=== PATIENT | female | born 1945 | race Caucasian/White ===

== ENCOUNTER → 2017-03-29 | Outpatient (CLI) | payer OTHER ==
[~2017-03-29] MED LIST: ALPRAZOLAM0.5 M1 PO; ATORVASTATIN CA40 MG PO; AZO CRANBERRY1 EAC1 PO; CITALOPRAM HBR10 MG PO; CLOTRIMAZOLE-BE30 ML; COLACE100 MG PO; DIGOXIN125 MCG PO; FLUDROCORTISON0.1 MG PO; GABAPENTIN300 MG PO; HYDROXYZINE HCL25 MG PO; MIDODRINE HCL2.5 MG PO; MUPIROCIN22 GM TOP; NYSTOP60 GM TOP; PLAVIX75 MG PO; PROBIOTIC COMP1 EACH; SIMVASTATIN40 MG PO; TRAZODONE HCL50 MG PO; TYLENOL EXTRA500 MG PO; ULTRAM50 MG PO; VELCADE3.5 MG; VESICARE5 MG PO; VITAMIN B-12500 MCG PO; VITAMIN B-6100 MG PO; XARELTO20 MG PO; ZYRTEC10 M1 PO
[2017-03-30 08:39] LABS: CLARITY,URINE CLOUDY (CLEAR); COLOR,URINE YELLOW (YELLOW)
[2017-03-30 08:40] LABS: BACTERIA,URINE RARE /HPF; BILIRUBIN,URINE NEGATIVE (NEGATIVE); EPITHELIAL CELLS,URINE FEW /LPF; KETONES,URINE NEGATIVE (NEGATIVE); LEUKOCYTE ESTERASE ,URINE 2+ (NEGATIVE); NITRITE,URINE NEGATIVE (NEGATIVE); PROTEIN,URINE DIPSTICK 1+ (NEGATIVE); URINE UROBILINOGEN 0.2 mg/dL (0.2 - 1); WBC,URINE (MAN) >50 /HPF (0-5)
== END ==
LOC: NPA 13:00
DX: R69 Illness, unspecified (principal)
CPT/HCPCS: 81001; 87086; 87186

== ENCOUNTER → 2017-06-19 | Emergency (ER) | payer MEDICARE ==
[~2017-06-19] VITALS: Ht 160 cm; Wt 69.9 kg
[~2017-06-19] MED LIST changes: +MEROPENEM 1 GM VIAL ONE; +MEROPENEM 1GRAM 1 GM in SODIUM CHLORIDE 0.9% 100 ML 100 ML IV STA; +SODIUM CHLORIDE 0.9% 1000ML 1,000 ML IV STA; +SODIUM CHLORIDE 0.9% 50ML 50 ML ONE
[2017-06-19 12:39] LABS: BILIRUBIN,URINE NEGATIVE (NEGATIVE); CLARITY,URINE CLOUDY (CLEAR); COLOR,URINE AMBER (YELLOW); KETONES,URINE NEGATIVE (NEGATIVE); LEUKOCYTE ESTERASE ,URINE 2+ (NEGATIVE); NITRITE,URINE NEGATIVE (NEGATIVE); PROTEIN,URINE DIPSTICK 2+ (NEGATIVE); URINE UROBILINOGEN 0.2 mg/dL (0.2 - 1)
[2017-06-19 12:54] LABS: AMORPHOUS SEDIMENT,URINE RARE (FEW); BACTERIA,URINE RARE /HPF; EPITHELIAL CELLS,URINE RARE /LPF; YEAST,URINE RARE
[2017-06-19 13:27] LABS: BASOPHILS # (AUTO) 0.1 (0.0-0.1); BASOPHILS % 1.1 % (0.0-1.0); EOSINOPHILS # (AUTO) 0.6 (0.0-0.4); EOSINOPHILS % 6.7 % (0.0-6.0); HEMATOCRIT 44.1 % (34.2-44.1); HEMOGLOBIN 14.1 g/dL (12.0-16.0); LYMPHOCYTES # (AUTO) 2.3 (1.0-3.2); MEAN CORPUSCULAR HEMOGLOBIN 27.9 pg (28-32); MEAN CORPUSCULAR VOLUME 87.3 fL (81-99); MONOCYTES # (AUTO) 0.6 (0.2-0.8); MONOCYTES % 6.9 % (4.4-11.3); NEUTROPHILS # (AUTO) 4.9 (2.1-6.9); NEUTROPHILS % 57.8 % (38.7-80.0); PLATELET COUNT 246 x10e3/uL (140-360); RED BLOOD COUNT 5.05 x10e6/uL (3.6-5.1); RED CELL DISTRIBUTION WIDTH 13.7 % (11.7-14.4)
[2017-06-19 14:21] LABS: ANION GAP 16.7 mmol/L (8-16); CALCIUM 9.3 mg/dL (8.4-10.2); CREATININE, SERUM 0.98 mg/dL (0.57-1.11); POTASSIUM 3.7 mmol/L (3.5-5.1)
--- OUTSIDE RECORDS SUMMARY | 2017-06-23 12:48 | XMS REPORT | Continuity of Care Document ---
Author Author [facility] Organization [facility] Address [address] [place] [address] Phone Unavailable Care Team Providers Care Django Developer Name Role Phone ANGELA BONILLA PCP Insurance Providers Guarantor Howard Salgado Address [address] [place] [address] Email PTDECLINED Payer AARP Policy Number [id number] Subscriber's Name Salgado,Howard Braswell Relationship 18 Self / Same As Patient Group Number PLANF Group Name RETIRED Effective Date 17 Payer Medicare A & B Policy Number [id number] Subscriber's Name SalgadoHoward Braswell Relationship 18 Self / Same As Patient Group Name RETIRED Effective Date 10 Advance Directives Directive Response Recorded Date/Time Does the patient have an advance directive? Yes 01/06/15 9:46pm If yes, is advance directive on file with [facility]? No 01/06/15 9:46pm If not on file with [facility] will patient provide a copy? Yes 01/06/15 9:46pm Do you have a Directive to Physician? No 06/19/17 12:06pm Do you have a Medical Power of Head Of Cytogenetics? No 06/19/17 12:06pm Do you have an out of hospital Do Not Resuscitate Order? No 03/12/18 12:06pm Do you have any special needs we should be aware of? No 06/19/17 12:06pm Do you have a support person here with you today? Yes 06/19/17 12:06pm Did patient receive Notice of Privacy Practices? Yes 06/19/17 12:06pm Did patient receive patient rights and responsibilities? Yes 06/19/17 12:06pm Problems Medical Problem Onset Date Status CHF (congestive heart failure) 01/06/2015 Acute CHF (congestive heart failure) 01/09/2015 Acute Suprapubic catheter Unknown Acute Medications Current Home Medications Medication Dose Units Route Directions Days Qty Instructions Start Date Acetaminophen (Tylenol Extra Strength) 500 Mg Tablet 500 Mg Oral As Needed Alprazolam 0.5 Mg Tab.rapdis 0.5 Mg Oral Daily Cranberry Extract/Vit C (Azo Cranberry Softgel) 1 Each Capsule 2 Tab Oral Daily Digoxin 125 Mcg Tablet 0.125 Mg Oral Daily Docusate Sodium (Colace) 100 Mg Cap 100 Mg Oral Daily 30 Cap Hydroxyzine Hcl 25 Mg Tablet 50 Mg Oral Daily 30 Tab Midodrine Hcl 2.5 Mg Tablet 5 Mg Oral Three Times A Day Mupirocin 22 Gm Oint...g. 22 Gm Topically Daily Nystatin (Nystop) 60 Gm Powder 100,000 Topically Simvastatin 40 Mg Tablet 40 Mg Oral Daily Solifenacin Succinate (Vesicare) 5 Mg Tablet 10 Mg Oral Daily 30 Tab Tramadol Hcl (Ultram) 50 Mg Tablet 50 Mg Oral Three Times A Day as needed for Pain Past Home Medications Medication Directions Ordered Status Atorvastatin Calcium 40 Mg Tablet, 40 Mg Oral Daily Discontinued Bortezomib (Velcade) 3.5 Mg Vial, 10 Discontinued Cetirizine Hcl (Zyrtec) 10 Mg Tab.chew, 10 Mg Oral Daily Discontinued Citalopram Hydrobromide (Citalopram Hbr) 10 Mg Tablet, 10 Mg Oral Daily Discontinued Clopidogrel Bisulfate (Plavix) 75 Mg Tablet, 75 Mg Oral Daily Discontinued Clotrimazole/Betamethasone Dip (Clotrimazole-Betamethasone Lot) 30 Ml Lotion, Daily Discontinued Cyanocobalamin (Vitamin B-12) (Vitamin B-12) 500 Mcg Tablet, Oral Daily Discontinued Fludrocortisone Acetate 0.1 Mg Tab, Oral Twice A Day Discontinued Gabapentin 300 Mg Capsule, 300 Mg Oral Four Times Daily Discontinued Lactobacillus Combo No.6 (Probiotic Complex) 1 Each Tablet, Discontinued Pyridoxine Hcl (Vitamin B-6) 100 Mg Tablet, 100 Mg Oral Daily Discontinued Rivaroxaban (Xarelto) 20 Mg Tablet, 20 Mg Oral Daily Discontinued Trazodone Hcl 50 Mg Tablet, 100 Mg Oral Bedtime Discontinued Social History Social History Problem Response Recorded Date/Time Onset Date Status Hx Psychiatric Problems No 01/06/2015 9:46pm Not Applicable Not Applicable Hx Eating Disorder No 01/06/2015 9:46pm Not Applicable Not Applicable Hx Substance Use Disorder No 01/06/2015 9:46pm Not Applicable Not Applicable Hx Depression No 01/06/2015 9:46pm Not Applicable Not Applicable Hx Alcohol Use No 01/06/2015 9:46pm Not Applicable Not Applicable Hx Substance Use Treatment No 01/06/2015 9:46pm Not Applicable Not Applicable Hx Physical Abuse No 01/06/2015 9:46pm Not Applicable Not Applicable Hospital Discharge Instructions No hospital discharge instruction information available. Plan of Care Discharge Date 06/19/17 4:25pm Disposition HOME, SELF-CARE Condition at Discharge Stable Instructions/Education Provided Urinary Tract Infection - Women Forms Provided Work/School Excuse Prescriptions See Medication Section Referrals RAUDEL YOUNG MD Address: [address] [place] [id number] Functional Status No functional status information available. Allergies, Adverse Reactions, Alerts Allergen Type Severity Reaction Status Last Updated Penicillin Allergy Mild HIVES Active 06/19/17 Nitrofurantoin Allergy Severe Couldn't breath and HTN Active 06/19/17 Immunizations No immunization information available. Vital Signs Acute Vital Signs Vital Response Date/Time Height 5 ft 3 in 06/19/2017 11:51am Weight 154 lb 06/19/2017 11:51am Body Mass Index 27.3 kg/m^2 06/19/2017 11:51am Results Laboratory Results Test Name Result Units Flags Reference Collection Date/Time Result Date/ Time Comments White Blood Count 8.53 x10e3/uL 4.8-10.8 06/19/2017 1:12pm 06/19/2017 1 :28pm Red Blood Count 5.05 x10e6/uL 3.6-5.1 06/19/2017 1:12pm 06/19/2017 1: 28pm Hemoglobin 14.1 g/dL 12.0-16.0 06/19/2017 1:06/19/2017 1:28pm Hematocrit 44.1 % 34.2-44.1 06/19/2017 1:06/19/2017 1:28pm Mean Corpuscular Volume 87.3 fL 81-99 06/19/2017 1:06/19/2017 1: 28pm Mean Corpuscular Hemoglobin 27.9 pg L 28-32 06/19/2017 1:2017 1:28pm Mean Corpuscular Hemoglobin Concent 32.0 g/dL 31-35 06/19/2017 1:06/19/2017 1:28pm Red Cell Distribution Width 13.7 % 11.7-14.4 06/19/2017 1:2017 1:28pm Platelet Count 246 x10e3/uL 140-360 06/19/2017 1:06/19/2017 1: 28pm Neutrophils (%) (Auto) 57.8 % 38.7-80.0 06/19/2017 1:06/19/2017 1: 28pm Lymphocytes (%) (Auto) 27.0 % 18.0-39.1 06/19/2017 1:06/19/2017 1: 28pm Monocytes (%) (Auto) 6.9 % 4.4-11.3 06/19/2017 1:06/19/2017 1: 28pm Eosinophils (%) (Auto) 6.7 % H 0.0-6.0 06/19/2017 1:06/19/2017 1: 28pm Basophils (%) (Auto) 1.1 % H 0.0-1.0 06/19/2017 1:06/19/2017 1: 28pm IM GRANULOCYTES % 0.5 % 0.0-1.0 06/19/2017 1:06/19/2017 1:28pm Neutrophils # (Auto) 4.9 2.1-6.9 06/19/2017 1:06/19/2017 1:28pm Lymphocytes # (Auto) 2.3 1.0-3.2 06/19/2017 1:06/19/2017 1:28pm Monocytes # (Auto) 0.6 0.2-0.8 06/19/2017 1:12pm 06/19/2017 1:28pm Eosinophils # (Auto) 0.6 H 0.0-0.4 06/19/2017 1:12pm 06/19/2017 1: 28pm Basophils # (Auto) 0.1 0.0-0.1 06/19/2017 1:12pm 06/19/2017 1:28pm Absolute Immature Granulocyte (auto 0.04 x10e3/uL 0-0.1 06/19/2017 1: 12pm 06/19/2017 1:28pm Urine Color PAWAN H YELLOW 06/19/2017 12:29pm 06/19/2017 12:39pm Urine Clarity CLOUDY H CLEAR 06/19/2017 12:29pm 06/19/2017 12:39pm Urine Specific Irving 1.020 1.010-1.025 06/19/2017 12:29pm 2017 12:39pm Urine pH 5 5 - 7 06/19/2017 12:29pm 06/19/2017 12:39pm Urine Leukocyte Esterase 2+ H NEGATIVE 06/19/2017 12:29pm 06/19/2017 12:39pm Urine Nitrite NEGATIVE NEGATIVE 06/19/2017 12:29pm 06/19/2017 12: 39pm Urine Protein 2+ H NEGATIVE 06/19/2017 12:29pm 06/19/2017 12:39pm Urine Glucose (UA) NEGATIVE NEGATIVE 06/19/2017 12:29pm 06/19/2017 12 :39pm Urine Ketones NEGATIVE NEGATIVE 06/19/2017 12:29pm 06/19/2017 12: 39pm Urine Urobilinogen 0.2 mg/dL 0.2 - 1 06/19/2017 12:29pm 06/19/2017 12: 39pm Urine Bilirubin NEGATIVE NEGATIVE 06/19/2017 12:29pm 06/19/2017 12: 39pm Urine Blood 4+ H NEGATIVE 06/19/2017 12:29pm 06/19/2017 12:39pm Urine WBC 6-10 /HPF H 0-5 06/19/2017 12:29pm 06/19/2017 12:56pm Urine RBC 11-20 /HPF H 0-5 06/19/2017 12:29pm 06/19/2017 12:56pm Urine Bacteria RARE /HPF NONE 06/19/2017 12:29pm 06/19/2017 12:56pm Urine Epithelial Cells RARE /LPF NONE 06/19/2017 12:29pm 06/19/2017 12: 56pm Urine Amorphous Sediment RARE FEW 06/19/2017 12:29pm 06/19/2017 12: 56pm Urine Yeast RARE H NONE 06/19/2017 12:29pm 06/19/2017 12:56pm Sodium Level 139 mmol/L 136-145 06/19/2017 1:43pm 06/19/2017 2:21pm Potassium Level 3.7 mmol/L 3.5-5.1 06/19/2017 1:43pm 06/19/2017 2:21pm Chloride Level 103 mmol/L 98-107 06/19/2017 1:43pm 06/19/2017 2:21pm Carbon Dioxide Level 23 mmol/L 22-29 06/19/2017 1:43pm 06/19/2017 2: 21pm Anion Gap 16.7 mmol/L H 8-16 06/19/2017 1:43pm 06/19/2017 2:21pm Blood Urea Nitrogen 18 mg/dL 7-26 06/19/2017 1:43pm 06/19/2017 2:21pm Creatinine 0.98 mg/dL 0.57-1.11 06/19/2017 1:43pm 06/19/2017 2:21pm BUN/Creatinine Ratio 18 6-25 06/19/2017 1:43pm 06/19/2017 2:21pm Estimat Glomerular Filtration Rate 56 ML/MIN L 60- 06/19/2017 1:43pm 03/2018 2:21pm Ranges were taken from the National Kidney Disease Education Program and the National Kidney Foundation literature. Reference ranges: 60 or greater: Normal 16-59 (for 3 consecutive months): Chronic kidney disease 15 or less: Kidney failure Glucose Level 242 mg/dL H 74-118 06/19/2017 1:43pm 06/19/2017 2:21pm Calcium Level 9.3 mg/dL 8.4-10.2 06/19/2017 1:43pm 06/19/2017 2:21pm Microbiology Results Procedure Source Organism/Result Collection Date/Time Result Date/Time Result Status Urine Culture Urine,Suprapubic ENTEROCOCCUS FAECALIS 11/25/2016 6:45pm 7:26am Final PSEUDOMONAS AERUGINOSA 11/25/2016 6:45pm 11/29/2016 7:26am Final Urine Culture Urine,Clean Catch ENTEROCOCCUS FAECALIS 03/29/2017 12:00pm 03/31/2017 2:59pm Final Procedures Procedure Status Date Provider(s) CHANGE OF BLADDER TUBE Completed 09/16/16 RAUDEL YOUNG MD CYSTOSCOPY & URETER CATHETER Completed 09/16/16 RAUDEL YOUNG MD CHANGE OF BLADDER TUBE Completed 11/25/16 TRAVIS GELLER MD X-ray of chest, two views Active 09/14/16 RAUDEL YOUNG MD Encounters Encounter Location Arrival/Admit Date Discharge/Depart Date Attending Provider Departed Emergency Room [facility] 06/19/17 11:37am 06/19 4:25pm TRAVIS KHAN MD Registered Clinic [facility] 03/29/17 1:00pm NONSTAFF Registered Clinic [facility] 03/27/17 1:30pm NAYANA MURRAY MD Departed Emergency Room [facility] 11/25/16 3:10pm 8:17pm TRAVIS GELLER MD Registered Surgical Day Care [facility] 09/16/16 6:30am RAUDEL YOUNG MD
== END ==
LOC: ER 11:37 → EDSTATUS 12:38 → FSED 15:52 → NPA 15:52 → ER 16:25
DX: R53.1 Weakness (principal); R10.30 Lower abdominal pain, unspecified; I48.91 Unspecified atrial fibrillation; Z86.73 Personal history of transient ischemic attack (TIA), and cerebral infarction without residual deficits
CPT/HCPCS: 36415; 80048; 81001; 85025; 87086; 87186; 99283; J2185

== ENCOUNTER 2018-02-05 18:10 | Inpatient (IN) | payer MEDICARE ==
[~2018-02-05] VITALS: Ht 162.6 cm; Wt 73.3 kg
[~2018-02-05 18:10] MED LIST changes: -MEROPENEM 1 GM VIAL ONE; -MEROPENEM 1GRAM 1 GM in SODIUM CHLORIDE 0.9% 100 ML 100 ML IV STA; -SODIUM CHLORIDE 0.9% 1000ML 1,000 ML IV STA; -SODIUM CHLORIDE 0.9% 50ML 50 ML ONE
--- OUTSIDE RECORDS SUMMARY | 2018-02-05 18:14 | XMS REPORT | Clinical Summary ---
Author Author ALEX [facility] Address Unknown Phone Unavailable Care Team Providers Care Cigarette Catcher Name Role Phone Andres New PCP Allergies Comments Active Allergy Reactions Severity Noted Date Nitrofurantoin Shortness Of High 01/14/2015 Breath Penicillins Rash Low 01/14/2015 Medications End Date Status Medication Sig Dispensed Refills Start Date Active digoxin (LANOXIN) 0.125 Take 125 mcg 0 MG tablet by mouth daily. Active solifenacin (VESICARE) 5 Take 10 mg by 0 MG tablet mouth daily. Active pantoprazole (PROTONIX) Take 1 tablet 0 40 MG tablet (40 mg total) 5 by mouth daily. Active vancomycin 125 mg/2.5 mL Take 2.5 mLs 0 Syrg (125 mg 5 total) by mouth every 6 (six) hours. 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 Last Filed Vital Signs Not on file Plan of Treatment Not on file Implants Device Identifier Shelf Expiration Date Model / Serial / Lot Implanted Type Area Manufactur er 06/02/2018 [id number] / [id number] / Valve,Mitral Epic Stented Porcine Valves N/A: Heart [employer] DEL[employer] 27mm - [id number] MEDICAL Implanted: Qty: 1 on 01/15/2015 by Eitan Burris MD Explanted: Results Not on fileafter 02/04/2017 Insurance Payer Benefit Subscriber ID Type Phone Address Plan / Group MEDICARE MEDICARE A xxxxxxxxxx Medicare B MCR SUPPLEMENT/INDIVIDUAL AARP/UNITE xxxxxxxxxxx Medigap D HEALTHCARE Advance Directives For more information, please contact: [address] [address] Date Inactivated Comments Code Status Date Activated 01/28/2015 5:44 PM Full Code 01/16/2015 8:25 AM This code status was determined by: Patient 01/15/2015 2:04 PM Full Code 01/14/2015 11:01 PM This code status was determined by: Patient 01/14/2015 11:01 PM Full Code 01/14/2015 2:59 PM This code status was determined by: Patient 01/14/2015 2:59 PM Full Code 01/14/2015 4:39 AM This code status was determined by: Patient 01/14/2015 4:39 AM Full Code 01/14/2015 2:53 AM This code status was determined by: Patient
[2018-02-05] MEDS ORDERED: SODIUM CHLORIDE 0.9% 1000ML 1,000 ML IV ONE ×3 (19:45→23:15)
[2018-02-05 20:14] LABS: BASOPHILS # (AUTO) 0.1 (0.0-0.1); BASOPHILS % 0.5 % (0.0-1.0); HEMATOCRIT 40.4 % (34.2-44.1); HEMOGLOBIN 13.4 g/dL (12.0-16.0); LYMPHOCYTES # (AUTO) 1.9 (1.0-3.2); LYMPHOCYTES % 10.1 % (18.0-39.1); MEAN CORPUSCULAR HEMOGLOBIN 29.4 pg (28-32); MEAN CORPUSCULAR HGB CONC 33.2 g/dL (31-35); MEAN CORPUSCULAR VOLUME 88.6 fL (81-99); MONOCYTES # (AUTO) 1.1 (0.2-0.8); MONOCYTES % 5.7 % (4.4-11.3); NEUTROPHILS # (AUTO) 15.5 (2.1-6.9); NEUTROPHILS % 83.1 % (38.7-80.0); PLATELET COUNT 244 x10e3/uL (140-360); RED BLOOD COUNT 4.56 x10e6/uL (3.6-5.1); RED CELL DISTRIBUTION WIDTH 12.9 % (11.7-14.4)
[2018-02-05 20:33] LABS: ALBUMIN 3.4 g/dL (3.5-5.0); ALBUMIN/GLOBULIN RATIO 0.7 (0.8-2.0); ANION GAP 15.1 mmol/L (8-16); CREATININE, SERUM 1.05 mg/dL (0.57-1.11); POTASSIUM 4.1 mmol/L (3.5-5.1)
[2018-02-05 20:39] LABS: CREATINE KINASE MB 2.4 ng/mL (0-5.0)
[2018-02-05] MEDS ORDERED: MEROPENEM 1GM 100 ML IV SCH (21:45)
--- NOTE | 2018-02-05 21:47 | Diagnostic Imaging Report ---
EXAM: CHEST SINGLE (PORTABLE), AP 1 view INDICATION: Intermittent fever, cloudy dark urine, A. fib COMPARISON: AP and lateral view of the chest September 14, 2016 FINDINGS: LINES/TUBES: None LUNGS: No consolidations or edema. PLEURA: No effusions or pneumothorax. HEART AND MEDIASTINUM: Normal size and contour. Stable median sternotomy wires. BONES AND SOFT TISSUES: Partially visualized lap band in appropriate orientation. Partially visualized lumbar spine surgical hardware. Chronic appearing deformity of the proximal right humerus. IMPRESSION: No consolidative pneumonia. Signed by: Dr. Kelly Gr M.D. on 02/05/2018 9:44 PM
[2018-02-05] MEDS: MEROPENEM 1 GM VIAL IV SCH (21:57)
[2018-02-05 22:44] LABS: CLARITY,URINE CLOUDY (CLEAR); COLOR,URINE YELLOW (YELLOW)
[2018-02-05 22:45] LABS: BILIRUBIN,URINE NEGATIVE (NEGATIVE); KETONES,URINE NEGATIVE (NEGATIVE); LEUKOCYTE ESTERASE ,URINE 2+ (NEGATIVE); NITRITE,URINE POSITIVE (NEGATIVE); PROTEIN,URINE DIPSTICK 2+ (NEGATIVE); URINE UROBILINOGEN 0.2 mg/dL (0.2 - 1)
[2018-02-05 23:07] LABS: BACTERIA,URINE MANY /HPF; EPITHELIAL CELLS,URINE FEW /LPF; WBC,URINE (MAN) >50 /HPF (0-5)
[2018-02-05] MEDS ORDERED: VANCOMYCIN 1GM/NS 250 ML 250 ML IV SCH (23:15)
[2018-02-05] MEDS ORDERED: ONDANSETRON HCL INJ 2 MG/ML VIAL IV PRN (23:15)
[2018-02-05] MEDS ORDERED: ACETAMINOPHEN 1000 MG/100 ML IV PRN (23:15)
--- OUTSIDE RECORDS SUMMARY | 2018-02-05 23:24 | XMS REPORT ---
Author Author [facility] Address Unknown Phone Unavailable Care Team Providers Care Crystal Finisher Name Role Phone Elias ARMSTRONG Unavailable Unavailable Problems This patient has no known problems. Allergies, Adverse Reactions, Alerts This patient has no known allergies or adverse reactions. Medications This patient has no known medications. Results Test Description Test Time Test Comments Text Results Atomic Results Result Comments CHEST SINGLE (PORTABLE) 2018-02-05 21:42:00 [place] [address] Patient Name: HOWARD SALGADO MR #: [id number] : 1945 Age/Sex: 72/F Req #: [id number] Adm Physician: Ordered by: MIGUEL MCKEON MD Report #: [id number] Location: ER Room/Bed: Procedure: [id number] DX/CHEST SINGLE (PORTABLE) Exam Date: 02/05/18 Exam Time: 2029 REPORT STATUS: Signed EXAM: CHEST SINGLE (PORTABLE), AP 1 view INDICATION: Intermittent fever, cloudy dark urine, A. fib COMPARISON: AP and lateral view of the chest September 14, 2016 FINDINGS: LINES/TUBES: None LUNGS: No consolidations or edema. PLEURA: No effusions or pneumothorax. HEART AND MEDIASTINUM: Normal size and contour. Stable median sternotomy wires. BONES AND SOFT TISSUES: Partially visualized lap band in appropriate orient ation. Partially visualized lumbar spine surgical hardware. Chronic appearing deformity of the proximal right humerus. IMPRESSION: No consolidative pneumonia. Signed by: Dr. Jacquelyn Gr M.D. on 02/05/2018 9:44 PM Dictated By: JACQUELYN GR MD 43 Transcribed By: LUIS on 02/05/182143 COPY TO: MIGUEL MCKEON MD
--- OUTSIDE RECORDS SUMMARY | 2018-02-05 23:24 | XMS REPORT | Clinical Summary ---
Author Author ALEX [facility] Address Unknown Phone Unavailable Care Team Providers Care Examiner Rating Clerk Name Role Phone Andres New PCP Allergies [...] Lot Implanted Type Area Manufactur er 06/02/2018 [id number] / [id number] / Valve,Mitral Epic Stented Porcine Valves N/A: Heart [employer] DELIA 27mm - [id number] MEDICAL Implanted: Qty: 1 on 01/15/2015 by Eitan Burris MD Explanted: Results Not on fileafter 02/04/2017 Insurance Payer Benefit Subscriber ID Type Phone Address Plan / Group MEDICARE MEDICARE A xxxxxxxxxx Medicare B MCR SUPPLEMENT/INDIVIDUAL AARP/UNITE xxxxxxxxxxx Medigap D HEALTHCARE Advance Directives For more information, please contact: [address] [address] Date Inactivated Comments Code Status [...]
[2018-02-05] MEDS ORDERED: ASPIR 8181 MG PO (23:25)
[2018-02-05] MEDS ORDERED: VANCOMYCIN 1GM/NS 250 ML 250 ML IV ONE (23:30)
[2018-02-06] VITALS (7 sets, daily range): BP systolic 97–148; BP diastolic 53–67
[2018-02-06] MEDS ORDERED: TRAMADOL HCL 50 MG TAB PO PRN (00:15)
[2018-02-06] MEDS: MEROPENEM 1 GM VIAL IV SCH (05:06)
[2018-02-06 07:50] LABS: BASOPHILS # (AUTO) 0.1 (0.0-0.1); BASOPHILS % 0.5 % (0.0-1.0); EOSINOPHILS % 0.1 % (0.0-6.0); HEMATOCRIT 33.9 % (34.2-44.1); HEMOGLOBIN 11.1 g/dL (12.0-16.0); LYMPHOCYTES # (AUTO) 1.9 (1.0-3.2); LYMPHOCYTES % 15.5 % (18.0-39.1); MEAN CORPUSCULAR HEMOGLOBIN 29.1 pg (28-32); MEAN CORPUSCULAR HGB CONC 32.7 g/dL (31-35); MEAN CORPUSCULAR VOLUME 88.7 fL (81-99); MONOCYTES % 8.1 % (4.4-11.3); NEUTROPHILS % 75.4 % (38.7-80.0); PLATELET COUNT 186 x10e3/uL (140-360); RED BLOOD COUNT 3.82 x10e6/uL (3.6-5.1)
[2018-02-06 08:07] LABS: ALANINE AMINOTRANSFERASE 10 IU/L (0-55); ALBUMIN 2.5 g/dL (3.5-5.0); ALBUMIN/GLOBULIN RATIO 0.6 (0.8-2.0); ALKALINE PHOSPHATASE 54 IU/L (40-150); ANION GAP 11.9 mmol/L (8-16); BLOOD UREA NITROGEN 12 mg/dL (7-26); BUN/CREATININE RATIO 15 (6-25); CALCIUM 8.4 mg/dL (8.4-10.2); CARBON DIOXIDE 23 mmol/L (22-29); CHLORIDE 105 mmol/L (98-107); CREATININE, SERUM 0.79 mg/dL (0.57-1.11); EST GLOMERULAR FILTRATION RATE > 60 ML/MIN (60-); GLUCOSE 110 mg/dL (74-118); POTASSIUM 3.9 mmol/L (3.5-5.1); SODIUM 136 mmol/L (136-145)
[2018-02-06] MEDS ORDERED: DIVALPROEX SOD250 M1 PO (08:44)
[2018-02-06] MEDS ORDERED: SIMVASTATIN 40 MG TAB PO SCH (09:00)
[2018-02-06] MEDS: MIDODRINE 2.5 MG TAB PO SCH ×3 (09:04→16:56)
[2018-02-06] MEDS: HYDROXYZINE HCL 25 MG TAB PO SCH (09:04)
[2018-02-06] MEDS: DOCUSATE SODIUM 100 MG CAP PO SCH (09:16)
[2018-02-06] MEDS: ALPRAZOLAM 0.5 MG TAB PO SCH (09:16)
[2018-02-06] MEDS: SOLIFENACIN SUCCINATE 5 MG TAB PO SCH (09:16)
[2018-02-06] MEDS: DIGOXIN 0.125 MG TAB PO SCH (09:16)
[2018-02-06] MEDS: VANCOMYCIN 1GM/NS 250 ML 250 ML IV SCH ×2 (10:43→23:15)
--- NOTE | 2018-02-06 11:15 | Consultation ---
DATE OF CONSULTATION: February 06, 2018 UROLOGICAL CONSULTATION Consultation is called by the emergency room. CHIEF COMPLAINT AND REASON FOR CONSULTATION: Chronic suprapubic tube, UTI. HISTORY OF PRESENT ILLNESS: Mrs. Loredo was taken to the hospital with abdominal pain, confusion, found to have a suprapubic tube and suspected urinary tract infection, and cloudy urine with foul smell. No gross hematuria. PAST MEDICAL HISTORY: Chronic suprapubic tube placement. Urinary incontinence. Please see office chart for complete review. MEDICATIONS: Please see MAR. ALLERGIES: PENICILLIN AND nitrofurantoin. SOCIAL HISTORY: No smoking, no drinking. FAMILY HISTORY: No urological disease or malignancies. REVIEW OF SYSTEMS: Noncontributory other than problems as mentioned above for 12-organ systems. PHYSICAL EXAMINATION GENERAL: Elderly female, in no acute distress currently. VITALS: Temperature 98, pulse 77, respirations 18, blood pressure 148/67. HEENT: Sclerae anicteric. NECK: Supple. BACK: Without costovertebral angle tenderness bilaterally. ABDOMEN: Soft. It is nontender. It is nondistended. No palpable mass. No palpable hernias. No palpable adenopathy. : Normal male genitalia. Suprapubic tube draining clear yellow urine. EXTREMITIES: No edema. Normally moves all 4 extremities. PSYCH: Mood appropriate. SKIN: Intact. Normal color. PERTINENT LABORATORY DATA: Urinalysis 2+ protein, 2+ blood, positive nitrites, 2+ leukocytes, 11 to 20 reds per high power field, greater than 50 whites per high power field. Sodium 132, potassium 4.1, chloride 97, bicarb 24, BUN 18, creatinine 1.05. Glucose 187. Hemoglobin 13, hematocrit 40, platelet count 244,000, white cell count 18,600. IMPRESSIONS 1. Urinary tract infection. 2. Microscopic hematuria. 3. Urinary incontinence. 4. Hypertension. 5. Chronic urinary retention. 6. Neurogenic bladder. PLAN: The patient has been put empirically on meropenem. Will adjust culture-specific antibiotics as the data is available. The patient has had surveillance cystoscopy. Would continue with monthly suprapubic tube changes as the tube is functioning currently. Thank you for allowing me to participate in the care of your patient. Will be following with you. Job#: [id number] cc:MD ANGELA DELACRUZ MD
[2018-02-06] MEDS: MUPIROCIN 2% OINT 22 GM TUBE TOP SCH (14:02)
[2018-02-06] MEDS: BALSAM PERU/CASTOR OIL 60 GM OINT...G. TP SCH (16:43)
[2018-02-06] MEDS: NYSTATIN 100,000 UNITS/GM CRM 30GM TUBE TOP SCH (16:43)
[2018-02-06] MEDS: DIVALPROEX SODIUM 250 MG TAB...DR PO SCH (20:40)
[2018-02-06] MEDS ORDERED: DIVALPROEX SODIUM 250 MG TAB...DR PO SCH (21:00)
[2018-02-07] VITALS (8 sets, daily range): BP systolic 101–133; BP diastolic 53–66
[2018-02-07] MEDS ORDERED: LISINOPRIL 10 MG TAB PO SCH (09:00)
[2018-02-07] MEDS ORDERED: ASPIRIN 325 MG TAB PO SCH (09:00)
[2018-02-07] MEDS: MIDODRINE 2.5 MG TAB PO SCH ×3 (09:22→16:47)
[2018-02-07] MEDS: DIGOXIN 0.125 MG TAB PO SCH (09:22)
[2018-02-07] MEDS: SOLIFENACIN SUCCINATE 5 MG TAB PO SCH (09:22)
[2018-02-07] MEDS: DOCUSATE SODIUM 100 MG CAP PO SCH (09:22)
[2018-02-07] MEDS: HYDROXYZINE HCL 25 MG TAB PO SCH (09:22)
[2018-02-07] MEDS: ASPIRIN 81 MG ENTERIC COATED PO SCH (09:22)
[2018-02-07] MEDS: MUPIROCIN 2% OINT 22 GM TUBE TOP SCH (09:23)
[2018-02-07] MEDS: NYSTATIN 100,000 UNITS/GM CRM 30GM TUBE TOP SCH ×2 (09:23→16:47)
[2018-02-07] MEDS: BALSAM PERU/CASTOR OIL 60 GM OINT...G. TP SCH ×2 (09:23→16:47)
[2018-02-07] MEDS: ALPRAZOLAM 0.5 MG TAB PO SCH (09:23)
[2018-02-07] MEDS ORDERED: ACETAMINOPHEN 325 MG TAB PO PRN (09:45)
[2018-02-07] MEDS: VANCOMYCIN 1GM/NS 250 ML 250 ML IV SCH ×2 (10:58→23:15)
[2018-02-07] MEDS: DIVALPROEX SODIUM 250 MG TAB...DR PO SCH (20:26)
[2018-02-08] VITALS (7 sets, daily range): BP systolic 80–121; BP diastolic 51–77
[2018-02-08 05:25] LABS: BASOPHILS # (AUTO) 0.1 (0.0-0.1); BASOPHILS % 0.7 % (0.0-1.0); EOSINOPHILS # (AUTO) 0.6 (0.0-0.4); EOSINOPHILS % 6.3 % (0.0-6.0); HEMATOCRIT 33.2 % (34.2-44.1); HEMOGLOBIN 10.9 g/dL (12.0-16.0); LYMPHOCYTES # (AUTO) 2.3 (1.0-3.2); LYMPHOCYTES % 26.5 % (18.0-39.1); MEAN CORPUSCULAR HGB CONC 32.8 g/dL (31-35); MEAN CORPUSCULAR VOLUME 88.3 fL (81-99); MONOCYTES # (AUTO) 0.8 (0.2-0.8); MONOCYTES % 9.3 % (4.4-11.3); NEUTROPHILS % 56.7 % (38.7-80.0); PLATELET COUNT 202 x10e3/uL (140-360); RED BLOOD COUNT 3.76 x10e6/uL (3.6-5.1); RED CELL DISTRIBUTION WIDTH 12.9 % (11.7-14.4)
[2018-02-08 05:41] LABS: ANION GAP 14.5 mmol/L (8-16); BLOOD UREA NITROGEN 13 mg/dL (7-26); BUN/CREATININE RATIO 18 (6-25); CALCIUM 8.9 mg/dL (8.4-10.2); CARBON DIOXIDE 23 mmol/L (22-29); CHLORIDE 108 mmol/L (98-107); CREATININE, SERUM 0.74 mg/dL (0.57-1.11); EST GLOMERULAR FILTRATION RATE > 60 ML/MIN (60-); GLUCOSE 95 mg/dL (74-118); POTASSIUM 3.5 mmol/L (3.5-5.1); SODIUM 142 mmol/L (136-145)
[2018-02-08] MEDS: MIDODRINE 2.5 MG TAB PO SCH ×3 (08:30→18:44)
[2018-02-08] MEDS: DIGOXIN 0.125 MG TAB PO SCH (09:30)
[2018-02-08] MEDS: SOLIFENACIN SUCCINATE 5 MG TAB PO SCH (09:30)
[2018-02-08] MEDS: ASPIRIN 81 MG ENTERIC COATED PO SCH (09:30)
[2018-02-08] MEDS: DOCUSATE SODIUM 100 MG CAP PO SCH (09:30)
[2018-02-08] MEDS: HYDROXYZINE HCL 25 MG TAB PO SCH (09:30)
[2018-02-08] MEDS: ALPRAZOLAM 0.5 MG TAB PO SCH (09:30)
[2018-02-08] MEDS: MUPIROCIN 2% OINT 22 GM TUBE TOP SCH (09:30)
[2018-02-08] MEDS: BALSAM PERU/CASTOR OIL 60 GM OINT...G. TP SCH ×2 (09:31→18:35)
[2018-02-08] MEDS: NYSTATIN 100,000 UNITS/GM CRM 30GM TUBE TOP SCH ×2 (09:31→18:36)
[2018-02-08] MEDS: LEVOFLOXACIN 500MG/D5W 100ML 100 ML IV SCH (12:25)
[2018-02-08] MEDS: BETAMETHASONE/CLOTRIMAZOLE CR 15 GM TUBE TOP SCH (18:36)
[2018-02-08] MEDS: DIVALPROEX SODIUM 250 MG TAB...DR PO SCH (20:02)
[2018-02-09] VITALS (7 sets, daily range): BP systolic 94–113; BP diastolic 55–68
[2018-02-09] MEDS: MIDODRINE 2.5 MG TAB PO SCH ×3 (08:32→17:29)
[2018-02-09] MEDS: DIGOXIN 0.125 MG TAB PO SCH (09:21)
[2018-02-09] MEDS: DOCUSATE SODIUM 100 MG CAP PO SCH (09:21)
[2018-02-09] MEDS: HYDROXYZINE HCL 25 MG TAB PO SCH (09:21)
[2018-02-09] MEDS: SOLIFENACIN SUCCINATE 5 MG TAB PO SCH (09:21)
[2018-02-09] MEDS: NYSTATIN 100,000 UNITS/GM CRM 30GM TUBE TOP SCH ×2 (09:22→17:29)
[2018-02-09] MEDS: BALSAM PERU/CASTOR OIL 60 GM OINT...G. TP SCH ×2 (09:22→17:29)
[2018-02-09] MEDS: BETAMETHASONE/CLOTRIMAZOLE CR 15 GM TUBE TOP SCH ×2 (09:22→17:29)
[2018-02-09] MEDS: MUPIROCIN 2% OINT 22 GM TUBE TOP SCH (09:22)
[2018-02-09] MEDS: ALPRAZOLAM 0.5 MG TAB PO SCH (09:22)
[2018-02-09] MEDS ORDERED: LEVOFLOXACIN500 MG PO (09:34)
[2018-02-09] MEDS: LEVOFLOXACIN 500MG/D5W 100ML 100 ML IV SCH (09:46)
--- NOTE | 2018-02-09 15:42 | Discharge Summary ---
DISCHARGE DIAGNOSES 1. Urinary tract infection with pseudomonas, improving. 2. Chronic atrial fibrillation. 3. Late effects of cerebrovascular accident. HISTORY OF PRESENT ILLNESS: Ms. Loredo is a pleasant, 72-year-old lady, a patient of Dr. Andres New, who has past medical history significant for chronic atrial fibrillation, COPD, prior CVA with left hemiparesis, and who has a suprapubic tube for the last few years. She was brought to the emergency department with a 1-day history of cloudy urine, confusion, low-grade temperature, and overall not feeling well. At the time of admission, her white cell count was 18,000. The UA was showing greater than 50 WBCs per high-power field. She was admitted to the hospital and, initially based on prior urine cultures where she had enterococcus infection, she was started on vancomycin empirically. The urine culture was returned positive for pseudomonas and Staph epi infections that were both uniformly sensitive to levofloxacin. She was switched to this medication and since has recovered her usual state of health. The patient is being discharged home in stable condition. She is getting a prescription for levofloxacin 500 mg daily for the next 10 days. She is to follow up with her PCP, Dr. New, and with her urologist, Dr. Lance. CANDY BUENO MD Job#: [id number]
[2018-02-09] MEDS ORDERED: HYDROCORTISONE 1% CREAM 30 GM TUBE TOP PRN (18:00)
--- NOTE | 2018-02-09 18:44 | Consultation ---
DATE OF CONSULTATION: February 09, 2018 HISTORY OF PRESENT ILLNESS: Ms. Loredo is a 72-year-old female who has history of chronic suprapubic catheter, UTI. She does not really provide any meaningful information. History was taken mainly from the chart and her caregiver who is also at the bedside. The patient was diagnosed with UTI. She does have underlying history of dementia, history of CVA, history of COPD, left sided hemiparesis, chronic atrial fibrillation. Patient was admitted. Currently, according to the caregiver there is altered mental status. She grew Pseudomonas aeruginosa sensitive to aztreonam and imipenem. She also grew negative Staph. LABORATORY DATA: On admission white count 18.6. Hemoglobin 13, hematocrit 40, and today is 8.7. Sodium 142, potassium 3.5, creatinine 0.76. Blood cultures no growth. Chest x-ray showed no pneumonia. Patient was started on , Meprozine, digoxin. She was supposed to be discharged home today, but she had diffuse rash and infectious disease was consulted. The patient has been on vancomycin and then Levaquin. PHYSICAL EXAMINATION: GENERAL: Alert, confused, does not seem to be in any acute distress. VITAL SIGNS: Stable, currently afebrile. HEENT: Not icteric. NECK: Supple. CHEST: Clear. HEART: S1 and S2, no murmur. ABDOMEN: Soft. Bowel IMPRESSION: 1. Urinary tract infection with Pseudomonas. 2. Skin rash. Could be due to vancomycin versus Levaquin. Will discontinue both and put her on meropenem. Hold discharge. 3. Diffuse rash which is macular rash. Apply local hydrocortisone. Will follow with you. Job#: [id number]
[2018-02-09] MEDS: DIVALPROEX SODIUM 250 MG TAB...DR PO SCH (20:51)
[2018-02-09] MEDS ORDERED: MEROPENEM 500MG 500 MG in SODIUM CHLORIDE 0.9% 50ML 50 ML IV SCH (22:00)
[2018-02-09] MEDS: MEROPENEM 500 MG VIAL IV SCH (22:36)
[2018-02-10] VITALS (8 sets, daily range): BP systolic 99–121; BP diastolic 57–80
[2018-02-10] MEDS: MEROPENEM 500 MG VIAL IV SCH ×3 (05:26→21:40)
[2018-02-10] MEDS: DOCUSATE SODIUM 100 MG CAP PO SCH (09:02)
[2018-02-10] MEDS: DIGOXIN 0.125 MG TAB PO SCH (09:02)
[2018-02-10] MEDS: MIDODRINE 2.5 MG TAB PO SCH ×3 (09:02→17:15)
[2018-02-10] MEDS: HYDROXYZINE HCL 25 MG TAB PO SCH (09:02)
[2018-02-10] MEDS: BALSAM PERU/CASTOR OIL 60 GM OINT...G. TP SCH ×2 (09:03→17:15)
[2018-02-10] MEDS: ALPRAZOLAM 0.5 MG TAB PO SCH (09:03)
[2018-02-10] MEDS: SOLIFENACIN SUCCINATE 5 MG TAB PO SCH (09:03)
[2018-02-10] MEDS: NYSTATIN 100,000 UNITS/GM CRM 30GM TUBE TOP SCH ×2 (09:03→17:15)
[2018-02-10] MEDS: MUPIROCIN 2% OINT 22 GM TUBE TOP SCH (09:03)
[2018-02-10] MEDS: BETAMETHASONE/CLOTRIMAZOLE CR 15 GM TUBE TOP SCH ×2 (09:03→17:15)
[2018-02-10] MEDS: DIVALPROEX SODIUM 250 MG TAB...DR PO SCH (21:40)
[2018-02-11] VITALS (8 sets, daily range): BP systolic 94–120; BP diastolic 56–75
[2018-02-11] MEDS: MEROPENEM 500 MG VIAL IV SCH ×3 (05:42→21:20)
[2018-02-11] MEDS: MIDODRINE 2.5 MG TAB PO SCH ×3 (08:59→17:16)
[2018-02-11] MEDS: DOCUSATE SODIUM 100 MG CAP PO SCH (08:59)
[2018-02-11] MEDS: HYDROXYZINE HCL 25 MG TAB PO SCH (08:59)
[2018-02-11] MEDS: MUPIROCIN 2% OINT 22 GM TUBE TOP SCH (09:00)
[2018-02-11] MEDS: DIGOXIN 0.125 MG TAB PO SCH (09:00)
[2018-02-11] MEDS: BALSAM PERU/CASTOR OIL 60 GM OINT...G. TP SCH ×2 (09:00→17:16)
[2018-02-11] MEDS: ALPRAZOLAM 0.5 MG TAB PO SCH ×2 (09:00→21:20)
[2018-02-11] MEDS: NYSTATIN 100,000 UNITS/GM CRM 30GM TUBE TOP SCH ×2 (09:00→17:16)
[2018-02-11] MEDS: SOLIFENACIN SUCCINATE 5 MG TAB PO SCH (09:00)
[2018-02-11] MEDS: BETAMETHASONE/CLOTRIMAZOLE CR 15 GM TUBE TOP SCH ×2 (09:00→17:16)
[2018-02-11] MEDS: DIVALPROEX SODIUM 250 MG TAB...DR PO SCH (21:19)
[2018-02-12] VITALS (8 sets, daily range): BP systolic 97–117; BP diastolic 54–73
[2018-02-12] MEDS: MEROPENEM 500 MG VIAL IV SCH ×3 (05:13→21:56)
[2018-02-12] MEDS: DOCUSATE SODIUM 100 MG CAP PO SCH (08:57)
[2018-02-12] MEDS: HYDROXYZINE HCL 25 MG TAB PO SCH (08:57)
[2018-02-12] MEDS: DIGOXIN 0.125 MG TAB PO SCH (08:57)
[2018-02-12] MEDS: MIDODRINE 2.5 MG TAB PO SCH ×3 (08:57→17:30)
[2018-02-12] MEDS: MUPIROCIN 2% OINT 22 GM TUBE TOP SCH (08:58)
[2018-02-12] MEDS: BETAMETHASONE/CLOTRIMAZOLE CR 15 GM TUBE TOP SCH ×2 (08:58→17:30)
[2018-02-12] MEDS: SOLIFENACIN SUCCINATE 5 MG TAB PO SCH (08:58)
[2018-02-12] MEDS: BALSAM PERU/CASTOR OIL 60 GM OINT...G. TP SCH ×2 (08:58→17:30)
[2018-02-12] MEDS: NYSTATIN 100,000 UNITS/GM CRM 30GM TUBE TOP SCH ×2 (08:58→17:30)
[2018-02-12] MEDS: DIVALPROEX SODIUM 250 MG TAB...DR PO SCH (21:00)
[2018-02-12] MEDS: ALPRAZOLAM 0.5 MG TAB PO SCH (21:00)
[2018-02-13] VITALS (7 sets, daily range): BP systolic 93–138; BP diastolic 52–72
[2018-02-13] MEDS: MEROPENEM 500 MG VIAL IV SCH ×2 (05:57→14:57)
[2018-02-13] MEDS: SOLIFENACIN SUCCINATE 5 MG TAB PO SCH (10:23)
[2018-02-13] MEDS: DIGOXIN 0.125 MG TAB PO SCH (10:23)
[2018-02-13] MEDS: HYDROXYZINE HCL 25 MG TAB PO SCH (10:23)
[2018-02-13] MEDS: MIDODRINE 2.5 MG TAB PO SCH ×3 (10:23→17:48)
[2018-02-13] MEDS: DOCUSATE SODIUM 100 MG CAP PO SCH (10:23)
[2018-02-13] MEDS: BETAMETHASONE/CLOTRIMAZOLE CR 15 GM TUBE TOP SCH ×2 (10:24→17:39)
[2018-02-13] MEDS: NYSTATIN 100,000 UNITS/GM CRM 30GM TUBE TOP SCH (10:24)
[2018-02-13] MEDS: BALSAM PERU/CASTOR OIL 60 GM OINT...G. TP SCH ×2 (10:24→17:39)
[2018-02-13] MEDS: DIPHENHYDRAMINE HCL INJ 50 MG/ML VIAL IV PRN (19:47)
[2018-02-13] MEDS: ALPRAZOLAM 0.5 MG TAB PO SCH (21:40)
[2018-02-13] MEDS: DIVALPROEX SODIUM 250 MG TAB...DR PO SCH (21:40)
[2018-02-14] VITALS (8 sets, daily range): BP systolic 108–133; BP diastolic 58–71
[2018-02-14] MEDS: DIPHENHYDRAMINE HCL INJ 50 MG/ML VIAL IV PRN (05:58)
[2018-02-14] MEDS ORDERED: AZTREONAM 1 GM/NS 50 ML 50 ML IV SCH (06:00)
[2018-02-14] MEDS ORDERED: SODIUM CHLORIDE 0.9% 250ML 250 ML ONE (06:05)
[2018-02-14 06:23] LABS: ANION GAP 15.7 mmol/L (8-16); BLOOD UREA NITROGEN 22 mg/dL (7-26); BUN/CREATININE RATIO 26 (6-25); CALCIUM 9.7 mg/dL (8.4-10.2); CARBON DIOXIDE 22 mmol/L (22-29); CHLORIDE 102 mmol/L (98-107); CREATININE, SERUM 0.86 mg/dL (0.57-1.11); EST GLOMERULAR FILTRATION RATE > 60 ML/MIN (60-); GLUCOSE 98 mg/dL (74-118); POTASSIUM 3.7 mmol/L (3.5-5.1); SODIUM 136 mmol/L (136-145)
[2018-02-14] MEDS: MIDODRINE 2.5 MG TAB PO SCH ×3 (08:00→17:42)
[2018-02-14] MEDS: DOCUSATE SODIUM 100 MG CAP PO SCH (09:15)
[2018-02-14] MEDS: SOLIFENACIN SUCCINATE 5 MG TAB PO SCH (09:15)
[2018-02-14] MEDS: HYDROXYZINE HCL 25 MG TAB PO SCH (09:15)
[2018-02-14] MEDS: DIGOXIN 0.125 MG TAB PO SCH (09:15)
[2018-02-14] MEDS: BETAMETHASONE/CLOTRIMAZOLE CR 15 GM TUBE TOP SCH ×2 (10:22→17:27)
[2018-02-14] MEDS: BALSAM PERU/CASTOR OIL 60 GM OINT...G. TP SCH ×2 (10:22→17:28)
[2018-02-14] MEDS: DIVALPROEX SODIUM 250 MG TAB...DR PO SCH (20:15)
[2018-02-14] MEDS: ALPRAZOLAM 0.5 MG TAB PO SCH (20:15)
[2018-02-15] VITALS: BP 120/71
[2018-02-15 04:00] VITALS: BP 114/62
[2018-02-15 05:24] LABS: BASOPHILS # (AUTO) 0.1 (0.0-0.1); BASOPHILS % 0.6 % (0.0-1.0); EOSINOPHILS # (AUTO) 1.2 (0.0-0.4); EOSINOPHILS % 12.4 % (0.0-6.0); HEMOGLOBIN 12.4 g/dL (12.0-16.0); LYMPHOCYTES # (AUTO) 2.7 (1.0-3.2); LYMPHOCYTES % 28.9 % (18.0-39.1); MEAN CORPUSCULAR HEMOGLOBIN 28.4 pg (28-32); MEAN CORPUSCULAR HGB CONC 31.8 g/dL (31-35); MEAN CORPUSCULAR VOLUME 89.4 fL (81-99); MONOCYTES # (AUTO) 0.8 (0.2-0.8); NEUTROPHILS # (AUTO) 4.6 (2.1-6.9); NEUTROPHILS % 49.6 % (38.7-80.0); PLATELET COUNT 337 x10e3/uL (140-360); RED BLOOD COUNT 4.36 x10e6/uL (3.6-5.1)
[2018-02-15 06:00] LABS: ANION GAP 14.1 mmol/L (8-16); BLOOD UREA NITROGEN 22 mg/dL (7-26); BUN/CREATININE RATIO 28 (6-25); CALCIUM 9.5 mg/dL (8.4-10.2); CARBON DIOXIDE 24 mmol/L (22-29); CHLORIDE 107 mmol/L (98-107); CREATININE, SERUM 0.78 mg/dL (0.57-1.11); EST GLOMERULAR FILTRATION RATE > 60 ML/MIN (60-); GLUCOSE 102 mg/dL (74-118); POTASSIUM 4.1 mmol/L (3.5-5.1); SODIUM 141 mmol/L (136-145)
[2018-02-15 07:15] VITALS: BP 130/60
[2018-02-15 07:55] VITALS: BP 130/60
[2018-02-15] MEDS: MIDODRINE 2.5 MG TAB PO SCH (08:00)
[2018-02-15] MEDS: SOLIFENACIN SUCCINATE 5 MG TAB PO SCH (09:35)
[2018-02-15] MEDS: DIGOXIN 0.125 MG TAB PO SCH (09:35)
[2018-02-15] MEDS: HYDROXYZINE HCL 25 MG TAB PO SCH (09:35)
[2018-02-15] MEDS: BALSAM PERU/CASTOR OIL 60 GM OINT...G. TP SCH (09:35)
[2018-02-15] MEDS: BETAMETHASONE/CLOTRIMAZOLE CR 15 GM TUBE TOP SCH (09:35)
[2018-02-15] MEDS: DOCUSATE SODIUM 100 MG CAP PO SCH (09:35)
[2018-02-15] MEDS ORDERED: CETIRIZINE HCL10 MG PEG (09:46)
[2018-02-15] MEDS ORDERED: FAMOTIDINE20 MG PO (09:46)
[2018-02-15 11:30] VITALS: BP 118/70
--- NOTE | 2018-02-15 16:25 | Discharge Summary ---
ADDENDUM TO DISCHARGE SUMMARY DISCHARGE DIAGNOSES 1. Urinary tract infection, improved. 2. Sepsis, resolved. 3. Late effects of cerebrovascular accident. 4. Rash. This is an adverse drug reaction. Antibiotic is unknown. After her initial discharge last week, Ms. Loredo developed a rash apparently while on Levaquin orally. An ID consult was called, and the ID product marketing consultant concurred with discontinuation of levofloxacin. The patient was then started on meropenem. She remained on meropenem for 4 days, and the plan was to discharge her home for an additional 14 days of IV meropenem; but, again, on the day of discharge, she developed a new rash, this time thought to be possibly secondary to meropenem. A discussion was undertaken between urology, infectious disease and myself, and a decision was reached to send the patient home without any antibiotics, as all her signs of sepsis and cultures have remained negative. She is to be followed up by her urologist, Dr. Dubose, and she was given prescriptions for H1 and H2 debbie. CANDY BUENO MD Job#: [id number]
== END 2018-02-15 13:12 | disposition home or self-care (01) | DRG 698 ==
LOC: ER 18:10 → ERHOLD 23:22 → MED/SURG3 02-06 02:02
PROVIDERS: ADMIT Internal Medicine; ATTEND Internal Medicine
DX: T83.510A Infection and inflammatory reaction due to cystostomy catheter, initial encounter (principal); A41.9 Sepsis, unspecified organism; I69.354 Hemiplegia and hemiparesis following cerebral infarction affecting left non-dominant side; R41.82 Altered mental status, unspecified; I48.2 Chronic atrial fibrillation; J44.9 Chronic obstructive pulmonary disease, unspecified; R31.29 Other microscopic hematuria; I10 Essential (primary) hypertension; N31.9 Neuromuscular dysfunction of bladder, unspecified; N39.498 Other specified urinary incontinence; B96.5 Pseudomonas (aeruginosa) (mallei) (pseudomallei) as the cause of diseases classified elsewhere; L27.1 Localized skin eruption due to drugs and medicaments taken internally; T36.8X5A Adverse effect of other systemic antibiotics, initial encounter; Z88.1 Allergy status to other antibiotic agents; Z88.0 Allergy status to penicillin; D64.9 Anemia, unspecified; R04.0 Epistaxis; F03.90 Unspecified dementia, unspecified severity, without behavioral disturbance, psychotic disturbance, mood disturbance, and anxiety; Z16.35 Resistance to multiple antimicrobial drugs; R53.81 Other malaise
CPT/HCPCS: 36415; 71045; 74470; 80048; 80053; 81001; 82550; 82553; 83605; 84484; 85025; 87040; 87086; 87186; 93005; 96374; 97139; 99284; J1200; J1956; J2185; J3370; J3410; J7030; J7050

== ENCOUNTER 2018-03-15 12:38 | Inpatient (IN) | payer MEDICARE ==
[~2018-03-15] VITALS: Ht 165.1 cm; Wt 74.0 kg
[~2018-03-15 12:38] MED LIST changes: +ASPIR 8181 MG PO; +CETIRIZINE HCL10 MG PEG; +DIVALPROEX SOD250 M1 PO; +FAMOTIDINE20 MG PO; +LEVOFLOXACIN500 MG PO
--- OUTSIDE RECORDS SUMMARY | 2018-03-15 12:41 | XMS REPORT | Clinical Summary ---
Author Author ALEX [facility] Address Unknown Phone Unavailable Care Team Providers Care Staker Surveying Name Role Phone Andres New PCP Allergies [...] Lot Implanted Type Area Manufactur er 06/02/2018 [id number] / [id number] / Valve,Mitral Epic Stented Porcine Valves N/A: Heart [employer] DEL[employer] 27mm - [id number] MEDICAL Implanted: Qty: 1 on 01/15/2015 by Eitan Burris MD Explanted: Results Not on fileafter 03/14/2017 Insurance Payer Benefit Subscriber ID Type Phone Address Plan / Group MEDICARE MEDICARE A xxxxxxxxxx Medicare B MCR SUPPLEMENT/INDIVIDUAL AARP/UNITE xxxxxxxxxxx Medigap D HEALTHCARE Advance Directives For more information, please contact: [address] [address] Date Inactivated Comments Code Status [...]
[2018-03-15] MEDS ORDERED: SODIUM CHLORIDE 0.9% 1000ML 1,000 ML IV STA (13:03)
[2018-03-15] MEDS ORDERED: CEFTRIAXONE SOD 1 GM VIAL IV SCH (13:15)
[2018-03-15] MEDS ORDERED: LISINOPRIL5 MG PO (13:42)
[2018-03-15] MEDS ORDERED: CETIRIZINE HCL10 MG PO (13:42)
--- NOTE | 2018-03-15 14:15 | Diagnostic Imaging Report ---
CT BRAIN WO HISTORY: Altered mental status COMPARISON: None. TECHNIQUE: Noncontrast axial scans were obtained from skull base to the vertex. Coronal and sagittal reconstructions obtained from the axial data. One or more of the following dose reduction techniques were used: Automated exposure control, adjustment of the mA and/or kV according to patient size, and/or utilization of iterative reconstruction technique. Motion and beam hardening artifacts obscure some details. DISCUSSION: Scalp/Skull: Unremarkable. Ventricles: Normal in size and configuration. No hydrocephalus. Extra-axial spaces: No masses or fluid collections. Parenchyma: Extensive right middle cerebral artery territory encephalomalacia is compatible with old infarct. Associated atrophic changes along the right corticospinal tract are due to Wallerian degeneration. Mild periventricular white matter hypodensities are likely chronic microvascular ischemic changes. Otherwise, no masses, hemorrhage, or large vascular territory acute infarct. Dural sinuses: No gross abnormal densities. Sellar/Suprasellar region: Poorly visualized. Skull base: Grossly intact. Incidental findings: Prominent atlantoaxial arthrosis is present. IMPRESSION: 1. No definite acute intracranial abnormalities. 2. 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 3. Mild supratentorial chronic microvascular ischemic change. Signed by: Dr. Qamar Yu M.D. on 03/15/2018 2:12 PM
--- NOTE | 2018-03-15 14:20 | Diagnostic Imaging Report ---
EXAMINATION: CT of the abdomen and pelvis without contrast. TECHNIQUE: Spiral CT images of the abdomen and pelvis were performed from the lung bases to the lesser trochanters. No intravenous contrast was given per renal stone protocol. Coronal and sagittal reformatted images were obtained. COMPARISON: None. CLINICAL HISTORY:Painful urination, altered status, history of UTI DISCUSSION: ABSENCE OF INTRAVENOUS CONTRAST DECREASES SENSITIVITY FOR DETECTION OF FOCAL LESIONS AND VASCULAR PATHOLOGY. ABDOMEN/PELVIS: LOWER THORAX: Subsegmental atelectasis in the dependent lower lobes. Bilateral breast implants. Mitral annular calcifications versus mitral valve repair-replacement. Median sternotomy wires partially visualized. No pericardial effusion. HEPATOBILIARY:Limited evaluation of the upper abdomen secondary to beam hardening artifact from the patient's arms, folded across her upper abdomen. No focal hepatic lesion or intrahepatic biliary dilatation. The gallbladder has been removed with metallic clips in the gallbladder fossa. SPLEEN: No splenomegaly or focal splenic lesion. PANCREAS: The pancreas is largely fatty replaced without mass lesion or ductal dilatation. ADRENALS: 2.2 cm left adrenal nodule has average internal attenuation 20-30 Hounsfield units. No right adrenal nodule. KIDNEYS/URETERS: Exophytic low-attenuation structures project from the left kidney, measuring 5.6 cm, and the right kidney, measuring 2.7 cm. Similar lesion within the right upper pole renal parenchyma measures 2.4 cm. All have internal contents less than 20 Hounsfield units in attenuation. No calculi, solid mass lesion, or hydronephrosis. PELVIC ORGANS/BLADDER: The urinary bladder is collapsed around a suprapubic catheter, with the retention balloon in the center of the bladder lumen. Uterus is not identified and has presumably been removed. No adnexal mass. PERITONEUM/RETROPERITONEUM: No ascites. No pneumoperitoneum. LYMPH NODES: No pelvic sidewall, retroperitoneal, or mesenteric lymphadenopathy. VESSELS: Limited evaluation without intravenous contrast. Atherosclerotic calcification of the abdominal aorta and major branch vessels without aneurysmal dilatation. GI TRACT: Laparoscopic gastric band apparatus encircles the proximal stomach. Intact catheter tubing lies within the left upper quadrant peritoneal cavity, with reservoir in the left upper quadrant subcutaneous fat. Large amount of fecal material with rectal distention. Gas and fecal material is noted elsewhere throughout the large bowel. Concentric wall thickening of the proximal transverse colon as seen on series 3 image 76 and 84. Normal appendix. No small bowel dilatation to suggest obstruction. BONES AND SOFT TISSUES: Diffuse osteopenia. Postsurgical changes of L4 and L5 laminectomies with posterior fusion of L4-S1. No focal soft tissue abnormalities. IMPRESSION: Bilateral renal cysts with otherwise normal unenhanced appearance of the kidneys. No calculi or hydronephrosis. The urinary bladder is collapsed around an appropriately positioned suprapubic catheter. Large amount of fecal material within the large bowel and rectum. Correlate for constipation. Concentric wall thickening of the proximal transverse colon may relate to peristalsis; however, direct visualization with colonoscopy is suggested if not recently performed, to exclude presence of a mass lesion. Left adrenal nodule is of slightly greater than expected attenuation for a lipid rich adenoma on an unenhanced CT. Definitive characterization with CT abdomen with and without contrast (adrenal mass protocol) is suggested. Additional findings include postsurgical changes related to median sternotomy, mastectomy/breast reconstruction, gastric banding, cholecystectomy, and lumbosacral fusion. Signed by: Dr. Jayme Esparza M.D. on 03/15/2018 2:17 PM
[2018-03-15 14:24] LABS: BASOPHILS # (AUTO) 0.1 (0.0-0.1); BASOPHILS % 0.4 % (0.0-1.0); EOSINOPHILS % 0.2 % (0.0-6.0); HEMATOCRIT 38.9 % (34.2-44.1); HEMOGLOBIN 12.8 g/dL (12.0-16.0); LYMPHOCYTES % 16.4 % (18.0-39.1); MEAN CORPUSCULAR HEMOGLOBIN 29.2 pg (28-32); MEAN CORPUSCULAR HGB CONC 32.9 g/dL (31-35); MEAN CORPUSCULAR VOLUME 88.6 fL (81-99); MONOCYTES % 7.8 % (4.4-11.3); NEUTROPHILS # (AUTO) 9.1 (2.1-6.9); NEUTROPHILS % 74.9 % (38.7-80.0); PLATELET COUNT 246 x10e3/uL (140-360); RED BLOOD COUNT 4.39 x10e6/uL (3.6-5.1); RED CELL DISTRIBUTION WIDTH 13.6 % (11.7-14.4)
[2018-03-15 14:48] LABS: ALANINE AMINOTRANSFERASE 12 IU/L (0-55); ALBUMIN 3.3 g/dL (3.5-5.0); ALBUMIN/GLOBULIN RATIO 0.6 (0.8-2.0); ALKALINE PHOSPHATASE 73 IU/L (40-150); ANION GAP 16.6 mmol/L (8-16); BLOOD UREA NITROGEN 13 mg/dL (7-26); BUN/CREATININE RATIO 15 (6-25); CALCIUM 9.4 mg/dL (8.4-10.2); CARBON DIOXIDE 25 mmol/L (22-29); CHLORIDE 101 mmol/L (98-107); CREATINE KINASE 55 IU/L (29-168); CREATININE, SERUM 0.86 mg/dL (0.57-1.11); EST GLOMERULAR FILTRATION RATE > 60 ML/MIN (60-); GLUCOSE 111 mg/dL (74-118); LIPASE 7 U/L (8-78); POTASSIUM 3.6 mmol/L (3.5-5.1); SODIUM 139 mmol/L (136-145)
[2018-03-15 16:38] LABS: CLARITY,URINE SL CLOUDY (CLEAR); COLOR,URINE YELLOW (YELLOW); LEUKOCYTE ESTERASE ,URINE 2+ (NEGATIVE)
[2018-03-15 16:39] LABS: BILIRUBIN,URINE NEGATIVE (NEGATIVE); KETONES,URINE TRACE (NEGATIVE); NITRITE,URINE NEGATIVE (NEGATIVE); PROTEIN,URINE DIPSTICK 1+ (NEGATIVE); URINE UROBILINOGEN 0.2 mg/dL (0.2 - 1)
[2018-03-15 16:50] LABS: BACTERIA,URINE FEW /HPF; EPITHELIAL CELLS,URINE FEW /LPF; RBC,URINE 21-50 /HPF (0-5); WBC,URINE (MAN) >50 /HPF (0-5)
--- OUTSIDE RECORDS SUMMARY | 2018-03-15 17:44 | XMS REPORT | Clinical Summary ---
Author Author [facility] Address Unknown Phone Unavailable Care Team Providers Care Sash Finisher Name Role Phone Andres New PCP Allergies [...] Lot Implanted Type Area Manufactur er 06/02/2018 [id number] / [id number] / Valve,Mitral Epic Stented Porcine Valves N/A: Heart [facility] 27mm - [id number] MEDICAL Implanted: Qty: 1 on 01/15/2015 by Eitan Burris MD Explanted: Results Not on fileafter 03/14/2017 Insurance Payer Benefit Subscriber ID Type Phone Address Plan / Group MEDICARE MEDICARE A xxxxxxxxxx Medicare B MCR SUPPLEMENT/INDIVIDUAL AARP/UNITE xxxxxxxxxxx Medigap D HEALTHCARE Advance Directives For more information, please contact: [address] [address] Date Inactivated Comments Code Status [...]
[2018-03-15] MEDS: SODIUM CHLORIDE 0.9% 1000ML 1,000 ML IV SCH (19:00)
[2018-03-15 21:28] VITALS: BP 100/62
[2018-03-15 22:37] VITALS: BP 100/62
[2018-03-16 00:08] VITALS: BP 110/66
[2018-03-16] MEDS: CEFTRIAXONE SOD 1 GM VIAL IV SCH ×2 (02:32→14:15)
[2018-03-16 05:12] VITALS: BP 97/66
[2018-03-16 05:46] LABS: BASOPHILS % 0.4 % (0.0-1.0); EOSINOPHILS # (AUTO) 0.2 (0.0-0.4); EOSINOPHILS % 1.6 % (0.0-6.0); HEMATOCRIT 32.5 % (34.2-44.1); HEMOGLOBIN 10.4 g/dL (12.0-16.0); LYMPHOCYTES # (AUTO) 2.2 (1.0-3.2); LYMPHOCYTES % 21.5 % (18.0-39.1); MEAN CORPUSCULAR HEMOGLOBIN 28.5 pg (28-32); MONOCYTES # (AUTO) 1.2 (0.2-0.8); MONOCYTES % 11.7 % (4.4-11.3); NEUTROPHILS # (AUTO) 6.6 (2.1-6.9); NEUTROPHILS % 64.4 % (38.7-80.0); PLATELET COUNT 194 x10e3/uL (140-360); RED BLOOD COUNT 3.65 x10e6/uL (3.6-5.1); RED CELL DISTRIBUTION WIDTH 13.8 % (11.7-14.4)
[2018-03-16 06:11] LABS: ALANINE AMINOTRANSFERASE 9 IU/L (0-55); ALBUMIN 2.5 g/dL (3.5-5.0); ALBUMIN/GLOBULIN RATIO 0.6 (0.8-2.0); ALKALINE PHOSPHATASE 61 IU/L (40-150); ANION GAP 13.5 mmol/L (8-16); BLOOD UREA NITROGEN 10 mg/dL (7-26); BUN/CREATININE RATIO 14 (6-25); CALCIUM 8.2 mg/dL (8.4-10.2); CARBON DIOXIDE 20 mmol/L (22-29); CHLORIDE 112 mmol/L (98-107); CREATININE, SERUM 0.73 mg/dL (0.57-1.11); EST GLOMERULAR FILTRATION RATE > 60 ML/MIN (60-); GLUCOSE 105 mg/dL (74-118); POTASSIUM 3.5 mmol/L (3.5-5.1); SODIUM 142 mmol/L (136-145)
--- NOTE | 2018-03-16 07:16 | NUR ---
PT AWAKE RESP EVEN AND UNLABORED AT THIS TIME, PT AT BEDSIDE, PT NO DISTRESS NOTED PT ABLE TO MAKE NEEDS KNOWN, CALL LIGHT IN REACH.
[2018-03-16 08:21] VITALS: BP 102/65
[2018-03-16] MEDS: MIDODRINE 2.5 MG TAB PO SCH ×3 (09:58→20:19)
[2018-03-16] MEDS: SODIUM CHLORIDE 0.9% 1000ML 1,000 ML IV SCH ×3 (10:09→17:39)
[2018-03-16] MEDS: FAMOTIDINE 20 MG TAB PO SCH (10:09)
[2018-03-16] MEDS: MUPIROCIN 2% OINT 22 GM TUBE TOP SCH (10:58)
--- NOTE | 2018-03-16 11:38 | NUR ---
Safemaker to bedside to discuss plan of care with patient/family. CM/SW role and care transitions discussed. Anticipated discharge plan discussed along with duration of care. CM/SW discussed patients right to make decisions in care. CM/SW work hours given. Patient lives: with Rigoberto Admit/Transfer: thru ED, from home POA/Emergency contact: Rigoberto Loredo [phone] Current/[facility] day a [facility], therapy 2 days a week, choice letter signed and placed in chart. Copy to pt's at bedside PCP/Follow-up Care: Dr. Andres New Current/Previous DME: walker, cane, wheelchair, hospital bed, shower is wheelchair accessible Other Services: none Employment Status: retired Areas of Concerns: n/a Referral Needs: n/a Education Needs: n/a IMM/SMILEY given and signed (if applicable): n/a Goal for discharge: home with home health CM/SW left business card at the bedside with contact information. Name and number was also written on the patients whiteboard. Patient verbalized understanding of discussion. CM will follow-up with ongoing discharge and transition of care needs.
[2018-03-16 11:58] VITALS: BP 107/70
--- NOTE | 2018-03-16 15:51 | NUR ---
WOUND CARE CONSULT: THIS IS A 73 YEAR OLD FEMALE PATIENT ADMITTED TO [facility] FOR ALTERED MENTAL STATUS AND UTI. HEAD TO TOE SKIN ASSESSMENT PERFORMED. PATIENT HAS A STAGE 2 PRESSURE ULCER TO HER SACRUM MEASURING 10X8X0.2CM, PINK AND GRANULAR WOUND BED. PATIENT FAMILY AND SITTER AT BEDSIDE DURING ASSESSMENT. LABS: WBC10.18 ALB2.5 RECOMMENDATION: -APPLY ALTERNATING PRESSURE RELIEF MATTRESS. -CONTINUE BILATERAL HEEL PROTECTORS WITH PILLOW SUSPENSION. -TURN EVERY 2 HOURS AND PRN. -NURSING TO APPLY VENELEX THEN ALLEVYN FOAM DRESSING TO STAGE 2 PRESSURE ULCER TO SACRUM; CHANGE DRESSING DAILY AND PRN. THANK YOU FOR THIS WOUND CARE CONSULT. Addendum: 03/16/18 at 1557 by Celine Servin RN Amended: Links added.
[2018-03-16 16:39] VITALS: BP 110/69
[2018-03-16] MEDS: DOCUSATE SODIUM 100 MG CAP PO SCH (17:00)
[2018-03-16] MEDS: ASPIRIN 81 MG CHEW TAB PO SCH (17:00)
[2018-03-16] MEDS: DIGOXIN 0.125 MG TAB PO SCH (17:46)
[2018-03-16] MEDS: SOLIFENACIN SUCCINATE 5 MG TAB PO SCH (17:46)
[2018-03-16] MEDS: SIMVASTATIN 40 MG TAB PO SCH (17:46)
[2018-03-16] MEDS: ALPRAZOLAM 0.5 MG TAB PO SCH (17:46)
[2018-03-16] MEDS: HYDROXYZINE HCL 25 MG TAB PO SCH (17:47)
--- NOTE | 2018-03-16 19:07 | NUR ---
REPORT GIVEN TO ONCOMING NURSE.
[2018-03-16] MEDS ORDERED: MINERAL OIL 132 ML BTL PR ONE (20:00)
[2018-03-16] MEDS ORDERED: PEG (High)/E-LYTE SOLN 4,000 ML BTL PO ONE (20:00)
[2018-03-16] MEDS: TRAMADOL HCL 50 MG TAB PO PRN (20:10)
[2018-03-16 20:39] VITALS: BP 136/60
[2018-03-17] VITALS (7 sets, daily range): BP systolic 103–175; BP diastolic 52–81
[2018-03-17] MEDS: CEFTRIAXONE SOD 1 GM VIAL IV SCH ×2 (02:38→13:40)
--- NOTE | 2018-03-17 04:15 | Consultation ---
GASTROENTEROLOGY CONSULTATION DATE OF CONSULTATION: March 17, 2018 REFERRING PHYSICIAN: Osmani Ch MD REASON FOR CONSULTATION: Abnormal CT scan. HISTORY OF PRESENT ILLNESS: This is a 73-year-old very pleasant white female who got admitted with predominant abdominal discomfort. She was also noted to be in altered mental status. GI is being consulted because CT of the abdomen and pelvis without contrast showed gastric lap band surgical changes, lot of retained stool in the colon. No acute intraabdominal pathology. GI is being consulted for further evaluation and recommendation. Patient reveals that at baseline she has lot of constipation. Stool is often very hard to pass at home. She could recall that last colonoscopy was done in the remote past. REVIEW OF SYSTEMS: Twelve-point system reviewed. Symptomatology is limited to GI system. PAST MEDICAL HISTORY: Chronic suprapubic catheter, urinary incontinence, reflux, hypertension, and hyperlipidemia. PAST SURGICAL HISTORY: Suprapubic catheter placement. SOCIAL HISTORY: No smoking, alcohol, or any illicit drug use. FAMILY HISTORY: Noncontributory. ALLERGIES: PENICILLIN AND NITROFURANTOIN. HOME MEDICATIONS: Acetaminophen, alprazolam, aspirin, cetirizine, digoxin, divalproex sodium, docusate sodium, famotidine, hydroxyzine, lisinopril, midodrine, mupirocin, Nystatin, simvastatin, solifenacin, and tramadol. Inpatient medication list reviewed. PHYSICAL EXAMINATION VITALS: Temperature 100.2, respirations 19, blood pressure 136/60, and oxygen saturation 94% on room air. GENERAL: Not in any acute distress. Oral mucosa is moist. Anicteric sclerae. CVS: S1 and S2 regular. LUNGS: Bilaterally grossly clear. ABDOMEN: Obese and soft. Healed surgical scar. Lower quadrant tenderness on deep palpation without rebound, rigidity, or guarding. Positive bowel sounds. LABORATORY DATA: WBC 10.18, hemoglobin 10.4, hematocrit 32.5, MCV 89, and platelet count 194. Sodium 142, potassium 3.5, chloride 112, bicarb 20, BUN 10, and creatinine 0.73. Liver enzymes are normal. DIAGNOSTIC DATA: CT of the abdomen and pelvis without contrast showed bilateral renal cysts, urinary bladder collapse secondary to suprapubic catheter, large amount of fecal material within the large bowel and rectum, correlate for the constipation, concentrate wall thickening of the proximal transverse colon, may relate to peristasis. However, direct visualization with colonoscopy is suggested if not recently performed to exclude presence of mass lesion. Left adrenal nodule, postsurgical changes related to median sternotomy, mastectomy, breast reconstruction, gastric banding, cholecystectomy, and lumbosacral fusion. IMPRESSION: Slow transit constipation. PLAN: I reviewed the CT scan results. It seems like patient's has severe fecal retention, therefore, will give her GoLYTELY to flush out the retained stool. Once bowel is clear, then of course, she needs colonoscopy, which can be done either as an inpatient or electively as an outpatient for further evaluation of colonic wall thickening in the transverse colon area. Job#: [id number] RACHELLE LICONA
[2018-03-17] MEDS: SODIUM CHLORIDE 0.9% 1000ML 1,000 ML IV SCH ×3 (05:41→15:00)
--- NOTE | 2018-03-17 07:40 | NUR ---
Pt received resting in bed with at bedside. Alert and oriented x2 with left arm contraction. Pt with suprapubic catheter. Oriented to staff and surroundings, and encouraged to press call linares if help needed. Pt verbalized understanding of teaching. All meds given as ordered. Fall precautions maintained. Call linares within reach. Will monitor.
[2018-03-17] MEDS: FAMOTIDINE 20 MG TAB PO SCH (07:48)
[2018-03-17] MEDS: MIDODRINE 2.5 MG TAB PO SCH ×3 (07:48→16:57)
[2018-03-17] MEDS: BALSAM PERU/CASTOR OIL 5 GM OINT...G. TP SCH (09:00)
[2018-03-17] MEDS: MUPIROCIN 2% OINT 22 GM TUBE TOP SCH (09:00)
[2018-03-17] MEDS ORDERED: SODIUM CHLORIDE 0.9% 50ML 50 ML ONE (13:11)
--- NOTE | 2018-03-17 13:12 | NUR ---
Nutrition Screen Note RD Recommendation for Physician: Continue Diet as ordered Plan of Care: RD following, monitoring for adequacy and tolerance Nutrition reason for involvement: (MD Consult, RN Consult, Nutrition Risk Trigger, Follow up, LOS, Pt request, etc.) Primary Diagnose(s): Altered mental status, UTI Ht:65 in Wt:155lb BMI:25.8 kg/m2 IBW:125lb RD Assessment:(03/17/2018) Initial encounter with patient. Diet Hx: Pt has no known food allergies. Medications: MAR reviewed. Physical activity and function: Pt is able to feed herself and needs setup. Pt ambulates with a WC due to left hemiparesis. Nutrition - focused physical findings: Pt has missing teeth has dentures, but were left at home. Pt denies and difficulty chewing or swallowing, N,V or diarrhea. denies any wt changes. reports a good appetite and PO intake today. Current Diet: Cardiac diet Malnutrition Evaluation (03/17/2018) The patient does not meet criteria for a specified degree of malnutrition at this time. Will re-evaluate at follow-up as appropriate. Diet Education Needs Assessment: Diet education not indicated. Diet Adequacy: Meeting calorie needs, Meeting protein needs, Meeting fluid needs Tolerance: Tolerating PO Nutrition Care Level: Jarred Iglesias RD, LD, CNSC
[2018-03-17] MEDS: TRAMADOL HCL 50 MG TAB PO PRN ×2 (14:56→20:00)
--- NOTE | 2018-03-17 16:10 | Consultation ---
UROLOGY CONSULTATION DATE OF CONSULTATION: March 17, 2018 CONSULTATION CALLED BY: Dr. Ch. CHIEF UROLOGIC COMPLAINT/REASON FOR CONSULTATION: Chronic SP tube urinary tract infections. HISTORY OF PRESENT ILLNESS: Garett Loredo is a 73-year-old female patient who was sent over to the emergency room by me 3 days ago. Despite being sent by me, there was no call to the urologist and the patient was admitted to Dr. Ch with urologic diagnosis and no consultation from the ER for the urologist. PAST MEDICAL HISTORY: Congestive heart failure, suprapubic tube, neurogenic bladder, multiple urinary tract infections, altered mental status, history of hematuria. MEDICATIONS: Please see MAR. ALLERGIES: PENICILLIN, LEVAQUIN, MEROPENEM, AND NITROFURANTOIN. SOCIAL HISTORY: No smoking. No drinking. FAMILY HISTORY: Denied urologic stones or malignancies. REVIEW OF SYSTEMS: Noncontributory other than problems as mentioned above for 12 other systems. PHYSICAL EXAMINATION VITALS: Currently she is afebrile with stable vital signs.. GENERAL: An elderly female in no acute distress/ HEENT: Sclerae anicteric. NECK: Supple. BACK: Costovertebral tenderness bilaterally. ABDOMEN: Soft and nontender. There is no palpable mass. No palpable hernias, no palpable inguinal lymphadenopathy. : Normal female external genitalia. EXTREMITIES: Nontender. NEUROLOGIC: Moves all 4 extremities. PSYCH: Alert and appropriate. SKIN: Intact. Normal color. PERTINENT LABORATORY DATA: CT scan revealing a 2.2 cm left adrenal nodule. A 5.6 cm exophytic lower attenuation mass in the left kidney. Similar lesion in the right upper pole kidney measuring 2.4 cm likely cysts. Laparoscopic gastric band intact. Rectal distention, diffuse osteopenia, constipation. Hemoglobin 12.8, hematocrit 38.2, platelet count 246,000. White blood cell count 12,150. Sodium 142, potassium 3.5, chloride 112, bicarb 20, BUN 10, creatinine 0.73, glucose 105, calcium of 8.2. Urinalysis 21 to 50 reds greater than 50 whites. IMPRESSION 1. Chronic urinary tract infections complicated. 2. Neurogenic bladder. 3. Chronic SP tube. 4. Urinary retention. 5. Hypocalcemia. 6. Left adrenal nodule. 7. Bilateral renal cysts. PLAN: Patient has been on broad-spectrum antibiotics. The patient is not due for suprapubic tube change. We will follow along with you. Thank you for allowing us to participate in the care of my patient. Job#: [id number] Y cc:MD DR. IRENE SALGUERO
[2018-03-17] MEDS: DIGOXIN 0.125 MG TAB PO SCH (16:57)
[2018-03-17] MEDS: HYDROXYZINE HCL 25 MG TAB PO SCH (16:57)
[2018-03-17] MEDS: ALPRAZOLAM 0.5 MG TAB PO SCH (16:57)
[2018-03-17] MEDS: ASPIRIN 81 MG CHEW TAB PO SCH (16:57)
[2018-03-17] MEDS: SOLIFENACIN SUCCINATE 5 MG TAB PO SCH (16:57)
[2018-03-17] MEDS: SIMVASTATIN 40 MG TAB PO SCH (16:57)
[2018-03-17] MEDS: DOCUSATE SODIUM 100 MG CAP PO SCH (16:57)
[2018-03-18] VITALS (8 sets, daily range): BP systolic 105–153; BP diastolic 63–81
[2018-03-18] MEDS: SODIUM CHLORIDE 0.9% 1000ML 1,000 ML IV SCH ×4 (01:29→17:29)
[2018-03-18] MEDS: CEFTRIAXONE SOD 1 GM VIAL IV SCH ×2 (01:33→14:09)
--- NOTE | 2018-03-18 06:49 | Diagnostic Imaging Report ---
ABDOMEN-1VIEW (KUB) Clinical history: Fecal impaction Technique: AP view abdomen Comparison: None Findings: Limited by portable supine technique and motion Neurostimulator device, LAP-BAND, and osseous hardware noted. Mild gaseous distention of bowel loops. Moderate to large rectal stool burden. Impression: Findings suggestive of ileus. Rectal fecal loading. Signed by: Dr Holley Quispe MD on 03/18/2018 6:45 AM
[2018-03-18] MEDS: MIDODRINE 2.5 MG TAB PO SCH ×3 (08:00→17:36)
--- NOTE | 2018-03-18 08:45 | NUR ---
Pt received resting in bed with at bedside. Pt appears to be very sleepy, refusing breakfast & meds. KUB results read to Dr. Beckford. Miralax ordered. No vomiting, cramping or diarrhea noted. Will monitor
[2018-03-18] MEDS: BALSAM PERU/CASTOR OIL 5 GM OINT...G. TP SCH (10:49)
[2018-03-18] MEDS: MUPIROCIN 2% OINT 22 GM TUBE TOP SCH (10:49)
[2018-03-18] MEDS ORDERED: SODIUM CHLORIDE 0.9% 50ML 50 ML ONE (12:57)
[2018-03-18] MEDS: FAMOTIDINE 20 MG TAB PO SCH (14:08)
[2018-03-18] MEDS: POLYETHYLENE GLYCOL 3350 17 GM PACK PO SCH ×2 (14:08→17:36)
[2018-03-18] MEDS: SOLIFENACIN SUCCINATE 5 MG TAB PO SCH (17:36)
[2018-03-18] MEDS: ALPRAZOLAM 0.5 MG TAB PO SCH (17:36)
[2018-03-18] MEDS: DIGOXIN 0.125 MG TAB PO SCH (17:36)
[2018-03-18] MEDS: SIMVASTATIN 40 MG TAB PO SCH (17:36)
[2018-03-18] MEDS: HYDROXYZINE HCL 25 MG TAB PO SCH (17:36)
[2018-03-18] MEDS: DOCUSATE SODIUM 100 MG CAP PO SCH (17:36)
[2018-03-18] MEDS: ASPIRIN 81 MG CHEW TAB PO SCH (17:36)
--- NOTE | 2018-03-18 19:26 | NUR ---
Pt resting comfortably in bed with call linares within reach. Handoff given to oncoming shift.
--- NOTE | 2018-03-18 19:35 | NUR ---
PATIENT RECEIVED.PATIENT IS RESTING IN BED, AAOX3. RESP EVEN AND UNLABORED. NO ACUTE DISTRESS NOTED. PATIENT DENIES OF ANY PAIN OR DISCOMFORT. CALL LIGHT WITH REACH. INSTRUCT TO CALL FOR ASSISTANCE. BED LOW/LOCKED. CONTINUE TO MONITOR CLOSELY
[2018-03-19] VITALS (8 sets, daily range): BP systolic 112–164; BP diastolic 61–76
[2018-03-19] MEDS: SODIUM CHLORIDE 0.9% 1000ML 1,000 ML IV SCH ×3 (02:52→17:39)
[2018-03-19] MEDS: CEFTRIAXONE SOD 1 GM VIAL IV SCH ×2 (02:52→16:02)
--- NOTE | 2018-03-19 07:05 | NUR ---
received pt lying in bed with eyes open, resp evne and unlabored. call light within reach. denies pain. at bedside.
[2018-03-19 09:06] LABS: BASOPHILS # (AUTO) 0.1 (0.0-0.1); BASOPHILS % 0.8 % (0.0-1.0); EOSINOPHILS # (AUTO) 0.4 (0.0-0.4); EOSINOPHILS % 4.4 % (0.0-6.0); HEMATOCRIT 35.3 % (34.2-44.1); HEMOGLOBIN 11.1 g/dL (12.0-16.0); MEAN CORPUSCULAR HGB CONC 31.4 g/dL (31-35); MEAN CORPUSCULAR VOLUME 92.2 fL (81-99); MONOCYTES # (AUTO) 0.9 (0.2-0.8); MONOCYTES % 9.7 % (4.4-11.3); NEUTROPHILS # (AUTO) 5.8 (2.1-6.9); NEUTROPHILS % 62.8 % (38.7-80.0); PLATELET COUNT 221 x10e3/uL (140-360); RED BLOOD COUNT 3.83 x10e6/uL (3.6-5.1); RED CELL DISTRIBUTION WIDTH 13.9 % (11.7-14.4)
[2018-03-19] MEDS: MIDODRINE 2.5 MG TAB PO SCH ×3 (09:24→17:39)
[2018-03-19] MEDS: BALSAM PERU/CASTOR OIL 5 GM OINT...G. TP SCH (09:24)
[2018-03-19] MEDS: FAMOTIDINE 20 MG TAB PO SCH (09:24)
[2018-03-19] MEDS: MUPIROCIN 2% OINT 22 GM TUBE TOP SCH (09:24)
[2018-03-19] MEDS: POLYETHYLENE GLYCOL 3350 17 GM PACK PO SCH ×2 (09:24→17:39)
[2018-03-19 09:25] LABS: ANION GAP 13.1 mmol/L (8-16); BLOOD UREA NITROGEN 9 mg/dL (7-26); BUN/CREATININE RATIO 12 (6-25); CALCIUM 8.3 mg/dL (8.4-10.2); CARBON DIOXIDE 21 mmol/L (22-29); CHLORIDE 109 mmol/L (98-107); CREATININE, SERUM 0.75 mg/dL (0.57-1.11); EST GLOMERULAR FILTRATION RATE > 60 ML/MIN (60-); GLUCOSE 113 mg/dL (74-118); POTASSIUM 3.1 mmol/L (3.5-5.1); SODIUM 140 mmol/L (136-145)
--- NOTE | 2018-03-19 16:14 | Consultation ---
DATE OF CONSULTATION: March 19, 2018 This patient has fever. HISTORY OF PRESENT ILLNESS: This patient is well known to me from before. She is a 73-year-old female, who has history of suprapubic catheter, multiple admissions to the hospital before and the patient comes in with fever, chills, nausea, vomiting. The patient was thinks she is feeling better, the patient who was recently, about a month ago, for the same problems. The patient has history of chronic suprapubic catheter, history of urinary incontinence, reflux disease, hypertension, obesity, hyperlipidemia. PAST SURGICAL HISTORY: Suprapubic catheter. ALLERGIES: NKA. SOCIAL HISTORY: There is no smoking, drug abuse alcohol abuse. FAMILY HISTORY: Otherwise noncontributory. REVIEW OF SYSTEMS: She is currently just not feeling well. She says she is feeling a little bit short of breath and cough. Patient is known to have history of pathogen. Her urine had Pseudomonas fluorescens. LABORATORY DATA: White count is 9.29, hemoglobin 11.1. Sodium 140, potassium 3.1, creatinine 0.75. Her amylase was 7. Blood cultures are negative. PHYSICAL EXAMINATION GENERAL: She is currently alert, oriented, does not seem in acute distress. VITALS: Stable. Currently afebrile. Her T-max had been 100.2 since admission. HEENT: She is not icteric. NECK: Supple. CHEST: Clear bilaterally. COR: S1, S2. No murmur. ABDOMEN: Soft. Bowel sounds are present. No tenderness. EXTREMITIES: No edema. SKIN: No rash. Her CAT scan was positive for ileus. IMPRESSIONS 1. Bacteriuria, colonization multidrug resistant. 2. Low fever, resolved. 3. Ileus. 4. Also seems to be getting better. I will suggest patient is getting better on Rocephin, will give 5 days. 5. She has aspiration pneumonia. Will follow. Job#: [id number] CQ
[2018-03-19] MEDS: HYDROXYZINE HCL 25 MG TAB PO SCH (17:38)
[2018-03-19] MEDS: ASPIRIN 81 MG CHEW TAB PO SCH (17:38)
[2018-03-19] MEDS: DOCUSATE SODIUM 100 MG CAP PO SCH (17:38)
[2018-03-19] MEDS: SIMVASTATIN 40 MG TAB PO SCH (17:39)
[2018-03-19] MEDS: ALPRAZOLAM 0.5 MG TAB PO SCH (17:39)
[2018-03-19] MEDS: SOLIFENACIN SUCCINATE 5 MG TAB PO SCH (17:39)
[2018-03-19] MEDS: DIGOXIN 0.125 MG TAB PO SCH (17:39)
--- NOTE | 2018-03-19 21:13 | Progress Note ---
DATE: March 19, 2018 GI PROGRESS NOTE SUBJECTIVE: Patient is having frequent bowel movements. She was able to drink half GoLYTELY, which was given to her on Monday. Reports no abdominal pain. REVIEW OF SYSTEMS GENERAL: No fever or chills. CVS: No chest pain or palpitation. RESPIRATORY: No cough or expectoration. MEDICATIONS 1. MiraLAX 17 g twice daily. 2. Midodrine 5 mg 3 times daily. 3. Solifenacin 10 mg daily. 4. Simvastatin 40 mg daily. 5. Digoxin 0.125 mg daily. 6. Alprazolam 0.5 mg daily. 7. Normal saline at 125 mL an hour. 8. Hydroxyzine 50 mg daily. 9. Docusate 100 mg daily. 10. Aspirin 81 mg daily. 11. Ceftriaxone 1 g p.o. q.12 h. 12. Mupirocin 22 g daily. 13. Famotidine 20 mg daily. 14. Tramadol 50 mg t.i.d. as needed. 15. Acetaminophen 500 mg q.6 h as needed. PHYSICAL EXAMINATION VITAL SIGNS: Temperature 97.7, pulse 79, respiration 19, blood pressure 125/76, oxygen saturation 96% on room air. GENERAL: Not in any acute distress. Oral mucosa is moist. Anicteric sclerae. ABDOMEN: Soft. Suprapubic catheter is in place. Mild lower quadrant tenderness on deep palpation without rebound, rigidity or guarding. Positive bowel sounds. LABS: WBC has come down to 9.29 from 12.15, hemoglobin 11.1, hematocrit 35.3, platelet count 221,000. Sodium 140, potassium 3.1 down from 3.5, chloride 109, bicarb 21, BUN 9, creatinine 0.75. Abdominal x-ray done on 03/18/2018 showed rectal fecal loading. PROBLEMS 1. Severe constipation with fecal retention. 2. Bacteriuria, which is multidrug resistant. ID is following, patient is on intravenous antibiotic. PLAN: Repeat abdominal x-ray. Continue current laxatives and stool softener. Will change docusate with Senna /docusate together 2 pills at night. Job#: [id number] [facility]
[2018-03-19] MEDS: SENNA-S TABLET PO SCH (22:58)
[2018-03-20] MEDS: SODIUM CHLORIDE 0.9% 1000ML 1,000 ML IV SCH ×3 (00:08→17:29)
[2018-03-20 01:11] VITALS: BP 122/67
[2018-03-20] MEDS: CEFTRIAXONE SOD 1 GM VIAL IV SCH ×2 (01:57→16:20)
[2018-03-20] MEDS ORDERED: POTASSIUM CHLORIDE 20 MEQ TAB CR PO STA (05:55)
--- NOTE | 2018-03-20 06:37 | Diagnostic Imaging Report ---
EXAM: ABDOMEN-1VIEW (KUB) DATE: 03/20/2018 8:00 AM INDICATION: Constipation. COMPARISON: KUB 03/18/2018 FINDINGS: Exam limited by motion supine positioning. LINES/TUBES: Neurostimulator device, LAP-BAND in place. BOWEL PATTERN: No evidence for obstruction. Resolution of the fecal ball in the rectum. SOFT TISSUES: No abnormal calcifications. No mass effect. Cholecystectomy clips in the right upper quadrant. LUNG BASES: Grossly clear. BONES: Lumbosacral fusion hardware. Median sternotomy wires. No acute findings. IMPRESSION: Passage of the previous moderate to large volume stool in the rectum. Signed by: DR. Jayro Massey MD on 03/20/2018 6:33 AM
[2018-03-20 07:00] VITALS: BP 126/73
--- NOTE | 2018-03-20 07:20 | NUR ---
rounded with the shift mechanic nurse, patient and aware of change. Patient resting, in no distress, call linares within reach and bed in lowest position.
[2018-03-20 08:00] VITALS: BP 115/65
[2018-03-20] MEDS: FAMOTIDINE 20 MG TAB PO SCH (08:35)
[2018-03-20] MEDS: POLYETHYLENE GLYCOL 3350 17 GM PACK PO SCH ×2 (08:35→17:30)
[2018-03-20] MEDS: MIDODRINE 2.5 MG TAB PO SCH ×3 (08:35→17:30)
[2018-03-20] MEDS: BALSAM PERU/CASTOR OIL 5 GM OINT...G. TP SCH (09:00)
[2018-03-20] MEDS: MUPIROCIN 2% OINT 22 GM TUBE TOP SCH (09:00)
[2018-03-20 11:56] VITALS: BP 102/58
--- NOTE | 2018-03-20 12:22 | NUR ---
Informed Dr. Ch that therapy is recommending SNF. gave order for SNF eval and transfer once accepted. CM spoke to pt and her at bedside. Pt's stated that pt has been at a SNF before and they did not like it. They want to go home with their current home health. stated that pt has therapy with her home health. CM informed him that pt would receive more therapy at a skilled facility. He again declined and inquired about possible discharge date. CM updated Dr. Ch on refusal for SNF. He stated that pt will stay at the hospital and did not give a discharge date.
--- NOTE | 2018-03-20 14:40 | NUR ---
Spoke to pt and her at bedside regarding discharge plan. Pt's stated that they have everything they need to take pt home. Also have a provider Mell, who helps them every day. IMM letter delivered and explained to pt and her . Signed copy placed in chart. Copy to pt's .
[2018-03-20 16:00] VITALS: BP 139/75
[2018-03-20] MEDS: SOLIFENACIN SUCCINATE 5 MG TAB PO SCH (17:30)
[2018-03-20] MEDS: ASPIRIN 81 MG CHEW TAB PO SCH (17:30)
[2018-03-20] MEDS: ALPRAZOLAM 0.5 MG TAB PO SCH (17:30)
[2018-03-20] MEDS: HYDROXYZINE HCL 25 MG TAB PO SCH (17:30)
[2018-03-20] MEDS: SIMVASTATIN 40 MG TAB PO SCH (17:30)
[2018-03-20] MEDS: DIGOXIN 0.125 MG TAB PO SCH (17:30)
--- NOTE | 2018-03-20 19:15 | NUR ---
rounded with the oncoming nurse, patient aware of change and in no distress. call linares within reach, bed in lowest position.
--- NOTE | 2018-03-20 19:47 | Progress Note ---
DATE: March 20, 2018 GI PROGRESS NOTE SUBJECTIVE: Patient is having frequent bowel movements. Denies any abdominal pain. She is on a standing bowel regimen. REVIEW OF SYSTEMS GENERAL: Patient's fever has resolved. No more chills. CVS: No chest pain or palpitation. RESPIRATORY: No cough or expectoration. MEDICATIONS: Reviewed as per JUN. She is on MiraLAX 17 g twice daily along with Senna with docusate 2 pills at bedtime. She is also on IV ceftriaxone daily along with other medications. PHYSICAL EXAMINATION VITAL SIGNS: Temperature 95.5, pulse 82, respirations 19, blood pressure 139/75, oxygen saturation 95% on room air. GENERAL: Not in any acute distress. Oral mucosa is moist. Anicteric sclerae. ABDOMEN: Soft, obese. Mild lower quadrant tenderness on deep palpation. Suprapubic catheter in place. No rebound, rigidity, or guarding. Positive bowel sounds. LABS: No lab from today. X-ray of the abdomen showed resolution of fecal impaction, passage of previous moderate to large volume of stool in the rectum. IMPRESSION 1. Slow transit constipation. 2. Rectal fecal impaction. 3. Sepsis, on intravenous antibiotics. PLAN: Continue daily standing bowel regimen. Fecal impaction as well as fecal stasis in the colon has resolved. Patient can be discharged home from GI standpoint. Job#: [id number] PATRICK
[2018-03-20 20:00] VITALS: BP 135/72
[2018-03-20] MEDS: SENNA-S TABLET PO SCH (22:08)
[2018-03-21] VITALS (8 sets, daily range): BP systolic 119–142; BP diastolic 66–86
[2018-03-21] MEDS: CEFTRIAXONE SOD 1 GM VIAL IV SCH (03:11)
[2018-03-21] MEDS: MIDODRINE 2.5 MG TAB PO SCH ×3 (08:00→17:00)
[2018-03-21] MEDS: FAMOTIDINE 20 MG TAB PO SCH (08:28)
[2018-03-21] MEDS: BALSAM PERU/CASTOR OIL 5 GM OINT...G. TP SCH (08:28)
[2018-03-21] MEDS: POLYETHYLENE GLYCOL 3350 17 GM PACK PO SCH ×2 (08:28→17:40)
[2018-03-21] MEDS: MUPIROCIN 2% OINT 22 GM TUBE TOP SCH (08:28)
[2018-03-21] MEDS: SODIUM CHLORIDE 0.9% 1000ML 1,000 ML IV SCH ×2 (12:30→21:50)
[2018-03-21] MEDS: CEFTRIAXONE SOD 1 GM/NS 50 ML 50 ML IV SCH (14:15)
--- NOTE | 2018-03-21 17:21 | NUR ---
Nutrition Screen Note RD Recommendation for Physician: -Continue cardiac diet as ordered Plan of Care: RD following, monitoring for adequacy and tolerance Nutrition reason for involvement: Follow up Primary Diagnose(s): Altered mental status, UTI Ht:65 in Wt:155lb 03/15 admit weight; 165lb 03/21 BMI:25.8 kg/m2 IBW:125lb RD Assessment: 03/21: Chart reviewed. Pt reports improved appetite with ~75-100% meal intake during hospital stay. No GI complains noted. LBM 03/20. Pt denies any difficulty chewing or swallowing. Will continue to monitor and follow. (03/17/2018) Initial encounter with patient. Diet Hx: Pt has no known food allergies. Medications: MAR reviewed. Physical activity and function: Pt is able to feed herself and needs setup. Pt ambulates with a WC due to left hemiparesis. Nutrition - focused physical findings: Pt has missing teeth has dentures, but were left at home. Pt denies and difficulty chewing or swallowing, N,V or diarrhea. denies any wt changes. reports a good appetite and PO intake today. Current Diet: Cardiac diet Malnutrition Evaluation (03/17/2018) The patient does not meet criteria for a specified degree of malnutrition at this time. Will re-evaluate at follow-up as appropriate. Diet Education Needs Assessment: Diet education not indicated. Diet Adequacy: Meeting calorie needs, Meeting protein needs, Meeting fluid needs Tolerance: Tolerating PO Nutrition Care Level: Low Deb Cruz, MS, RD, LD
[2018-03-21] MEDS: DIGOXIN 0.125 MG TAB PO SCH (17:39)
[2018-03-21] MEDS: HYDROXYZINE HCL 25 MG TAB PO SCH (17:39)
[2018-03-21] MEDS: ASPIRIN 81 MG CHEW TAB PO SCH (17:39)
[2018-03-21] MEDS: SOLIFENACIN SUCCINATE 5 MG TAB PO SCH (17:40)
[2018-03-21] MEDS: ALPRAZOLAM 0.5 MG TAB PO SCH (17:40)
[2018-03-21] MEDS: SIMVASTATIN 40 MG TAB PO SCH (17:40)
--- NOTE | 2018-03-21 19:36 | NUR ---
Patient received lying in bed. [id number]-yx-[id number] at bedside. AAO x 2. No complaints of pain. No signs of respiratory distress. Bed locked and in lowest position. Bed rails up x 2. Patient instructed to call for assistance when needed. Call light within reach.
--- NOTE | 2018-03-21 19:49 | Progress Note ---
DATE: March 21, 2018 GI PROGRESS REPORT SUBJECTIVE: Patient is having regular bowel movements. Denies any abdominal pain. She still continues to spike low-grade fever. Tolerating oral feeds. REVIEW OF SYSTEMS GENERAL: Low-grade temperature. No chills. CVS: No chest pain, palpitation. RESPIRATORY: No cough or expectoration. MEDICATIONS: Reviewed as per JUN. She is on: 1. MiraLAX 17 g twice daily. 2. Solifenacin 10 mg daily. 3. Simvastatin 40 mg daily. 4. Alprazolam 0.5 mg daily. 5. Hydroxyzine 50 mg daily. 6. Digoxin 0.125 mg daily. 7. Aspirin 81 mg daily. 8. Ceftriaxone 1 g q.12 h. 9. Mupirocin 22 g daily. 10. Famotidine 20 mg daily. 11. Senna with docusate 2 pills at nightly. 12. Tramadol 50 mg t.i.d. p.r.n. 13. Midodrine 5 mg t.i.d. 14. Acetaminophen 500 mg q.6 h as needed. PHYSICAL EXAMINATION VITAL SIGNS: Temperature 96.5, T-max 99. Pulse ranging from 98 to 73. Respirations 16 to 18. Blood pressure 142/73 to 125/66. Oxygen saturation 94% on room air. GENERAL: Not in any acute distress. Oral mucosa is moist. ABDOMEN: Soft, nondistended. Suprapubic catheter in place. Nontender. No palpable mass or hernia. Positive bowel sounds. LABS: WBC has come down to 9.29, hemoglobin 11.1, hematocrit 35.3, MCV 92.2, platelet 221,000. Electrolytes normal as checked on 03/19/2018 except potassium was 3.1. Abdominal x-ray done yesterday showed passage of previous [id number]-[id number] volume stool in the rectum. Resolution of fecal ball impaction. PROBLEMS: Constipation has resolved. Patient is on daily standing bowel regimen. PLAN: Continue the rest of the medical care as per primary team. Will continue daily standing bowel regimen. She is having regular BM without any diarrhea. Job#: [id number] [facility]
[2018-03-21] MEDS: SENNA-S TABLET PO SCH (21:50)
[2018-03-22] VITALS (8 sets, daily range): BP systolic 133–165; BP diastolic 78–97
[2018-03-22] MEDS: SODIUM CHLORIDE 0.9% 1000ML 1,000 ML IV SCH ×2 (01:29→14:00)
[2018-03-22] MEDS: CEFTRIAXONE SOD 1 GM/NS 50 ML 50 ML IV SCH ×2 (02:30→15:21)
[2018-03-22] MEDS: MIDODRINE 2.5 MG TAB PO SCH ×3 (08:00→17:00)
[2018-03-22] MEDS: MUPIROCIN 2% OINT 22 GM TUBE TOP SCH (08:26)
[2018-03-22] MEDS: FAMOTIDINE 20 MG TAB PO SCH (08:26)
[2018-03-22] MEDS: POLYETHYLENE GLYCOL 3350 17 GM PACK PO SCH ×2 (08:26→18:25)
[2018-03-22] MEDS: BALSAM PERU/CASTOR OIL 5 GM OINT...G. TP SCH (08:26)
[2018-03-22] MEDS: TRAMADOL HCL 50 MG TAB PO PRN (13:12)
--- NOTE | 2018-03-22 15:24 | NUR ---
Spoke with Dr. Ch, along with CM Director, regarding discharge plan. He stated that since pt and refused SNF, pt is to continue IV abx until Monday, then she can discharge home with home health.
[2018-03-22] MEDS: ASPIRIN 81 MG CHEW TAB PO SCH (17:31)
[2018-03-22] MEDS: DIGOXIN 0.125 MG TAB PO SCH (17:31)
[2018-03-22] MEDS: HYDROXYZINE HCL 25 MG TAB PO SCH (17:31)
[2018-03-22] MEDS: SOLIFENACIN SUCCINATE 5 MG TAB PO SCH (17:32)
[2018-03-22] MEDS: ALPRAZOLAM 0.5 MG TAB PO SCH (17:32)
[2018-03-22] MEDS: SIMVASTATIN 40 MG TAB PO SCH (17:32)
--- NOTE | 2018-03-22 19:28 | NUR ---
Patient received asleep in bed. Aroused by tactile stimuli. AAO x 2. No signs of pain or respiratory distress. IVF infusing at 125 cc / hr. Bed locked and in lowest position. Bed rails up x 2. Bed alarm activated. Call light within reach.
[2018-03-22] MEDS: SENNA-S TABLET PO SCH (22:00)
[2018-03-23] VITALS (9 sets, daily range): BP systolic 127–144; BP diastolic 7–93
--- NOTE | 2018-03-23 00:15 | Progress Note ---
DATE: March 22, 2018 SUBJECTIVE: Patient reports no abdominal pain. Tolerating oral feeds. Now, she is having regular bowel movement. REVIEW OF SYSTEMS: GENERAL: No fever or chills. She has stopped spiking fever anymore. CVS: No chest pain, palpitation. RESPIRATORY: No cough or expectoration. MEDICATIONS: Reviewed as per JUN. PHYSICAL EXAMINATION: VITAL SIGNS: Temperature 97.4, T-max today 97. Pulse 99, respiration is 17, blood pressure 136/79, oxygen saturation 93% on room air. GENERAL: Not in any acute distress. HEENT: Oral mucosa is moist. ABDOMEN: Soft, nondistended, nontender. Suprapubic catheter in place. No rebound, rigidity, or guarding. Positive bowel sounds. LABS: None. PROBLEM: Severe constipation and fecal impaction, resolved. PLAN: Continue bowel regimen. Patient can be discharged from GI standpoint. Job#: [id number]
[2018-03-23] MEDS: SODIUM CHLORIDE 0.9% 1000ML 1,000 ML IV SCH ×3 (01:29→16:59)
[2018-03-23] MEDS: CEFTRIAXONE SOD 1 GM/NS 50 ML 50 ML IV SCH ×2 (02:57→15:29)
[2018-03-23] MEDS: POLYETHYLENE GLYCOL 3350 17 GM PACK PO SCH ×2 (08:22→16:59)
[2018-03-23] MEDS: FAMOTIDINE 20 MG TAB PO SCH (08:22)
[2018-03-23] MEDS: BALSAM PERU/CASTOR OIL 5 GM OINT...G. TP SCH (08:22)
[2018-03-23] MEDS: MIDODRINE 2.5 MG TAB PO SCH ×3 (08:24→16:59)
[2018-03-23] MEDS: ACETAMINOPHEN 325 MG TAB PO PRN ×2 (09:26→21:41)
[2018-03-23] MEDS: ASPIRIN 81 MG CHEW TAB PO SCH (16:58)
[2018-03-23] MEDS: SOLIFENACIN SUCCINATE 5 MG TAB PO SCH (16:59)
[2018-03-23] MEDS: SIMVASTATIN 40 MG TAB PO SCH (16:59)
[2018-03-23] MEDS: HYDROXYZINE HCL 25 MG TAB PO SCH (16:59)
[2018-03-23] MEDS: DIGOXIN 0.125 MG TAB PO SCH (16:59)
[2018-03-23] MEDS: SENNA-S TABLET PO SCH (21:40)
[2018-03-24] VITALS (7 sets, daily range): BP systolic 125–152; BP diastolic 59–69
--- NOTE | 2018-03-24 00:30 | Progress Note ---
DATE: March 23, 2018 SUBJECTIVE: Patient reports no abdominal pain. She is having regular bowel movement. Tolerating oral feeds. REVIEW OF SYSTEMS GENERAL: Spiking low-grade fever, no chills. RESPIRATORY: No cough or expectoration. CVS: No chest pain or palpitations. MEDICATIONS: Reviewed as per MAR. She is on ceftriaxone intravenous along with other medications. PHYSICAL EXAMINATION VITAL SIGNS: Temperature 100.6, pulse 80, respirations 18, blood pressure 139/85, and oxygen saturation 96% on room air. GENERAL: Elderly, appears to be confused at this time in the evening. HEENT: Oral mucosa is moist. Anicteric sclerae. ABDOMEN: Soft. Suprapubic catheter in place. Nontender. No palpable mass or hernia. Positive bowel sounds. LABS: None today. IMPRESSION 1. Constipation/fecal impaction has resolved. 2. Sepsis, spiking fever, on IV antibiotic, being followed by ID service. PLAN: From GI standpoint, continue present medical management, watch for bowel movements. Daily bowel regimen. Job#: [id number] RTY
[2018-03-24] MEDS: CEFTRIAXONE SOD 1 GM/NS 50 ML 50 ML IV SCH ×2 (02:09→15:22)
[2018-03-24] MEDS: SODIUM CHLORIDE 0.9% 1000ML 1,000 ML IV SCH ×3 (02:09→17:00)
[2018-03-24] MEDS ORDERED: ONDANSETRON HCL INJ 2 MG/ML VIAL IV PRN (05:45)
--- NOTE | 2018-03-24 07:03 | NUR ---
RECEIVED PT LYING IN BED WITH EYES CLOSED, RESP EVEN AND UNLABORED. AT BEDSIDE. CALL LIGHT WITHIN REACH.
--- NOTE | 2018-03-24 07:30 | NUR ---
Al with ID in facility notified of patient with increased temp overnight and with temp of 99F this am, patient also noted to be flushed with elvi red cheeks. denies pain and SOB. received new orders. call light within reach, at bedside.
--- NOTE | 2018-03-24 08:31 | Progress Note ---
DATE:March 24, 2018 SUBJECTIVE: Patient is a 73-year-old female, admitted for multidrug-resistant urinary tract infection. She has a history of CVA and currently is afebrile and doing better. Her is by the bedside and says that the patient is better. Patient is on Rocephin 1 g q.12 hours. Patient is alert and oriented x3. OBJECTIVE GENERAL: Patient is hemiplegic. VITAL SIGNS: Temperature is 97.6, T max of 100.0, pulse of 119, respiration of 22, blood pressure 152/68, and pulse ox is 92%. HEENT: Normocephalic, atraumatic. CVS: S1 and S2 normal. Regular rate and rhythm. ABDOMEN: Nontender, nondistended. EXTREMITIES: No clubbing. No cyanosis. No edema. NEUROLOGIC: Baseline hemiplegia with flaccid left side. LABORATORY DATA: Laboratory values from March 19, 2018; sodium 140, potassium 3.1. Hematology from March 19, 2018; white count is 9.2, hemoglobin of 11.5, and hematocrit of 35.1. Urine rbc's 21 to 50, urine blood was 2+. MICROBIOLOGY: Shows Staphylococcus epidermis and colonization of the pseudo fluorescens putida. PLAN: We will continue on the Rocephin at this time for her urinary tract infection. Patient will be continued on MiraLax for constipation. She is getting midodrine 5 mg 3 times a day for hypertension, hyperlipidemia, simvastatin, and also she is getting aspirin and famotidine for GI prophylaxis. We will continue all these medicines. Further recommendation per clinical course. We will repeat her potassium today for her hyperlipidemia and also trend her white count. We will continue to monitor the patient and possibly discharge tomorrow. Job#: [id number] TRISTIAN
[2018-03-24 08:47] LABS: BASOPHILS # (AUTO) 0.1 (0.0-0.1); BASOPHILS % 0.4 % (0.0-1.0); EOSINOPHILS # (AUTO) 0.1 (0.0-0.4); EOSINOPHILS % 0.5 % (0.0-6.0); HEMATOCRIT 31.9 % (34.2-44.1); HEMOGLOBIN 10.4 g/dL (12.0-16.0); LYMPHOCYTES # (AUTO) 1.1 (1.0-3.2); LYMPHOCYTES % 7.5 % (18.0-39.1); MEAN CORPUSCULAR HEMOGLOBIN 28.4 pg (28-32); MEAN CORPUSCULAR HGB CONC 32.6 g/dL (31-35); MEAN CORPUSCULAR VOLUME 87.2 fL (81-99); MONOCYTES # (AUTO) 0.8 (0.2-0.8); MONOCYTES % 5.4 % (4.4-11.3); NEUTROPHILS % 85.5 % (38.7-80.0); PLATELET COUNT 308 x10e3/uL (140-360); RED BLOOD COUNT 3.66 x10e6/uL (3.6-5.1); RED CELL DISTRIBUTION WIDTH 14.1 % (11.7-14.4)
[2018-03-24] MEDS: BALSAM PERU/CASTOR OIL 5 GM OINT...G. TP SCH (09:01)
[2018-03-24] MEDS: FAMOTIDINE 20 MG TAB PO SCH (09:01)
[2018-03-24] MEDS: POLYETHYLENE GLYCOL 3350 17 GM PACK PO SCH ×2 (09:01→16:59)
[2018-03-24] MEDS: MIDODRINE 2.5 MG TAB PO SCH ×3 (09:01→17:00)
[2018-03-24 09:03] LABS: ANION GAP 14.6 mmol/L (8-16); BLOOD UREA NITROGEN 7 mg/dL (7-26); BUN/CREATININE RATIO 10 (6-25); CALCIUM 8.4 mg/dL (8.4-10.2); CARBON DIOXIDE 20 mmol/L (22-29); CHLORIDE 107 mmol/L (98-107); EST GLOMERULAR FILTRATION RATE > 60 ML/MIN (60-); GLUCOSE 120 mg/dL (74-118); POTASSIUM 3.6 mmol/L (3.5-5.1); SODIUM 138 mmol/L (136-145)
[2018-03-24] MEDS: ACETAMINOPHEN 325 MG TAB PO PRN (10:00)
--- NOTE | 2018-03-24 10:08 | Diagnostic Imaging Report ---
EXAMINATION: CHEST SINGLE (PORTABLE) INDICATION: Fever COMPARISON: Chest x-ray 02/05/2018 FINDINGS: AP view TUBES and LINES: Median sternotomy wires. Lap band is in place. LUNGS: Lungs are well inflated. Bilateral multifocal airspace opacity, right greater left. PLEURA: Likely trace right pleural effusion. HEART AND MEDIASTINUM: The cardiomediastinal silhouette is unremarkable. BONES AND SOFT TISSUES: No acute osseous lesion. Soft tissues are unremarkable. UPPER ABDOMEN: No free air under the diaphragm. IMPRESSION: Multifocal airspace opacities, which is new. This likely represents multifocal pneumonia. Pulmonary vasculature are within normal limits. Signed by: Dr. Korey Astudillo M.D. on 03/24/2018 10:04 AM
--- NOTE | 2018-03-24 11:58 | NUR ---
IMM letter delivered with explanation. Signed copy placed in chart. Copy to .
[2018-03-24] MEDS: VANCOMYCIN 1GM/NS 250 ML 250 ML IV SCH (16:18)
[2018-03-24] MEDS: DIGOXIN 0.125 MG TAB PO SCH (16:59)
[2018-03-24] MEDS: SOLIFENACIN SUCCINATE 5 MG TAB PO SCH (17:00)
[2018-03-24] MEDS: HYDROXYZINE HCL 25 MG TAB PO SCH (17:00)
[2018-03-24] MEDS: ASPIRIN 81 MG CHEW TAB PO SCH (17:00)
[2018-03-24] MEDS: SIMVASTATIN 40 MG TAB PO SCH (17:00)
--- NOTE | 2018-03-24 20:39 | NUR ---
Received patient in bed, introduced self to patient, patient is confused, patient denies any pain at this time, safety and fall precautions maintained as per hospital protocol: bed in lowest position and locked, needed items beside bed and call linares placed within patient reach, patient instructed to use it to call nurses for any assistance needed, daughter at bed side. patient is currently stable will continue to monitor.
[2018-03-24] MEDS: SENNA-S TABLET PO SCH (22:16)
[2018-03-25] VITALS (8 sets, daily range): BP systolic 96–125; BP diastolic 50–88
[2018-03-25] MEDS: CEFTRIAXONE SOD 1 GM/NS 50 ML 50 ML IV SCH ×2 (01:28→15:53)
[2018-03-25] MEDS: SODIUM CHLORIDE 0.9% 1000ML 1,000 ML IV SCH ×2 (01:29→12:22)
[2018-03-25] MEDS: VANCOMYCIN 1GM/NS 250 ML 250 ML IV SCH ×2 (03:32→15:53)
[2018-03-25 04:44] LABS: BASOPHILS % 0.3 % (0.0-1.0); HEMATOCRIT 29.7 % (34.2-44.1); HEMOGLOBIN 9.5 g/dL (12.0-16.0); LYMPHOCYTES # (AUTO) 0.9 (1.0-3.2); LYMPHOCYTES % 7.7 % (18.0-39.1); MEAN CORPUSCULAR HEMOGLOBIN 27.9 pg (28-32); MEAN CORPUSCULAR VOLUME 87.1 fL (81-99); MONOCYTES # (AUTO) 0.4 (0.2-0.8); NEUTROPHILS # (AUTO) 10.8 (2.1-6.9); NEUTROPHILS % 88.5 % (38.7-80.0); PLATELET COUNT 293 x10e3/uL (140-360); RED BLOOD COUNT 3.41 x10e6/uL (3.6-5.1); RED CELL DISTRIBUTION WIDTH 14.2 % (11.7-14.4)
[2018-03-25 05:01] LABS: ANION GAP 13.4 mmol/L (8-16); BLOOD UREA NITROGEN 10 mg/dL (7-26); BUN/CREATININE RATIO 13 (6-25); CALCIUM 8.5 mg/dL (8.4-10.2); CARBON DIOXIDE 21 mmol/L (22-29); CHLORIDE 108 mmol/L (98-107); EST GLOMERULAR FILTRATION RATE > 60 ML/MIN (60-); GLUCOSE 142 mg/dL (74-118); POTASSIUM 3.4 mmol/L (3.5-5.1); SODIUM 139 mmol/L (136-145)
--- NOTE | 2018-03-25 07:30 | NUR ---
patient endorsed to next shift for continuity of care.
[2018-03-25] MEDS ORDERED: FUROSEMIDE INJ 10 MG/ML 2 ML VIAL IV ONE (08:00)
--- NOTE | 2018-03-25 09:22 | Progress Note ---
DATE: March 25, 2018 SUBJECTIVE: Patient is here for multidrug-resistant urinary tract infection, history of CVA, and history of questionable aspiration. Patient is alert, easily arousable, but goes right back to sleep. OBJECTIVE VITAL SIGNS: Temperature is 100.1, pulse of 98, respirations of 20, blood pressure is 125/58, and pulse oximetry 93%. HEENT: Normocephalic, atraumatic. Pupils are reactive. Patient is also hemiplegic. CVS: S1, S2 normal. Regular rate and rhythm. ABDOMEN: Nontender, nondistended. LUNGS: Positive for bilateral inspiratory wheezes present. LABORATORY DATA: White count is 12,000, hemoglobin of 9.5, hematocrit of 29.7, neutrophil count was 88.5. MEDICATIONS: Vancomycin q.12 hours and Rocephin q.12 hours. Patient is also on midodrine, simvastatin, hydroxyzine, aspirin, digoxin, and patient is also on IV fluid at 125 mL per hour. ASSESSMENT 1. Multidrug-resistant urinary tract infection. 2. Hemiplegia from previous cerebrovascular accident. 3. Hypertension. 4. Hyperlipidemia. 5. Generalized debility. PLAN: Today, patient has increased inspiratory wheezes. We will go ahead and stop the fluids right now, give her some breathing treatments, albuterol and Atrovent, and continue monitoring her temperature which has gone up. ID consult is on board. We will also do a vancomycin trough, random. Microbiology shows Staphylococcus epidermidis with colonization of pseudomonas. Continue monitoring the patient and patient was to be discharged today. We will hold the discharge and check her white count and also her electrolytes in the morning. Further recommendations per clinical course. We will continue following the patient along with the ID. Job#: [id number] NOEL
[2018-03-25] MEDS: BALSAM PERU/CASTOR OIL 5 GM OINT...G. TP SCH (09:56)
[2018-03-25] MEDS: MIDODRINE 2.5 MG TAB PO SCH ×3 (09:56→17:36)
[2018-03-25] MEDS: FAMOTIDINE 20 MG TAB PO SCH (09:56)
[2018-03-25] MEDS: POLYETHYLENE GLYCOL 3350 17 GM PACK PO SCH ×2 (09:56→17:36)
[2018-03-25] MEDS: ALBUTEROL SULF 0.083% NEB SOLN 3 ML NEB NEB SCH ×4 (10:35→23:00)
[2018-03-25] MEDS: IPRATROPIUM BROMIDE 0.02% 2.5 ML NEB NEB SCH ×2 (14:00→19:50)
[2018-03-25] MEDS: ASPIRIN 81 MG CHEW TAB PO SCH (17:35)
[2018-03-25] MEDS: HYDROXYZINE HCL 25 MG TAB PO SCH (17:35)
[2018-03-25] MEDS: SOLIFENACIN SUCCINATE 5 MG TAB PO SCH (17:36)
[2018-03-25] MEDS: SIMVASTATIN 40 MG TAB PO SCH (17:36)
[2018-03-25] MEDS: DIGOXIN 0.125 MG TAB PO SCH (17:36)
[2018-03-25] MEDS: SENNA-S TABLET PO SCH (21:55)
[2018-03-26] VITALS (8 sets, daily range): BP systolic 102–129; BP diastolic 52–69
[2018-03-26] MEDS: ALBUTEROL SULF 0.083% NEB SOLN 3 ML NEB NEB SCH ×5 (01:15→19:36)
[2018-03-26] MEDS: IPRATROPIUM BROMIDE 0.02% 2.5 ML NEB NEB SCH ×4 (01:15→19:36)
[2018-03-26] MEDS: CEFTRIAXONE SOD 1 GM/NS 50 ML 50 ML IV SCH ×2 (02:37→15:07)
[2018-03-26] MEDS: SODIUM CHLORIDE 0.9% 1000ML 1,000 ML IV SCH (02:45)
[2018-03-26] MEDS: VANCOMYCIN 1GM/NS 250 ML 250 ML IV SCH ×2 (03:44→16:19)
[2018-03-26 06:41] LABS: BASOPHILS % 0.4 % (0.0-1.0); EOSINOPHILS # (AUTO) 0.3 (0.0-0.4); EOSINOPHILS % 2.7 % (0.0-6.0); HEMATOCRIT 30.6 % (34.2-44.1); HEMOGLOBIN 9.5 g/dL (12.0-16.0); LYMPHOCYTES # (AUTO) 1.3 (1.0-3.2); LYMPHOCYTES % 12.7 % (18.0-39.1); MEAN CORPUSCULAR HEMOGLOBIN 27.8 pg (28-32); MEAN CORPUSCULAR VOLUME 89.5 fL (81-99); MONOCYTES # (AUTO) 0.5 (0.2-0.8); MONOCYTES % 4.7 % (4.4-11.3); NEUTROPHILS # (AUTO) 8.3 (2.1-6.9); NEUTROPHILS % 79.2 % (38.7-80.0); PLATELET COUNT 286 x10e3/uL (140-360); RED BLOOD COUNT 3.42 x10e6/uL (3.6-5.1); RED CELL DISTRIBUTION WIDTH 14.5 % (11.7-14.4)
[2018-03-26 06:59] LABS: ANION GAP 12.5 mmol/L (8-16); BLOOD UREA NITROGEN 11 mg/dL (7-26); BUN/CREATININE RATIO 14 (6-25); CALCIUM 8.4 mg/dL (8.4-10.2); CARBON DIOXIDE 26 mmol/L (22-29); CHLORIDE 107 mmol/L (98-107); CREATININE, SERUM 0.76 mg/dL (0.57-1.11); EST GLOMERULAR FILTRATION RATE > 60 ML/MIN (60-); GLUCOSE 92 mg/dL (74-118); POTASSIUM 3.5 mmol/L (3.5-5.1); SODIUM 142 mmol/L (136-145)
--- NOTE | 2018-03-26 07:00 | NUR ---
The patient is awake and oriented. Her is at the bedside. She has a aquino to gravity and she has a right arm PIV that is infusing antibiotic at this time. Bedside rounding completed. Patient is instructed to call if she needs anything. The is expressing his intent to take her home when she is discharged. The CM team will be notified at rounds.
--- NOTE | 2018-03-26 07:01 | NUR ---
patient endorsed to next shift for continuity of care.
[2018-03-26] MEDS: FAMOTIDINE 20 MG TAB PO SCH (09:47)
[2018-03-26] MEDS: MIDODRINE 2.5 MG TAB PO SCH ×3 (09:47→20:03)
[2018-03-26] MEDS: POLYETHYLENE GLYCOL 3350 17 GM PACK PO SCH ×2 (09:47→17:00)
[2018-03-26] MEDS: BALSAM PERU/CASTOR OIL 5 GM OINT...G. TP SCH (09:47)
--- NOTE | 2018-03-26 12:00 | NUR ---
Patient is taking her oral meds with pudding and yogurt and is comfortable with that. There is a caregiver at the bedside.
--- NOTE | 2018-03-26 16:00 | NUR ---
The is at the bedside and very attentive. The patient has been turned and assessed the wound to sacrum. The wound is redressed with butterfly dressing.
--- NOTE | 2018-03-26 18:45 | NUR ---
Daughter at bedside, meds given, patient is to have a swallow eval tomorrow.
--- NOTE | 2018-03-26 19:30 | NUR ---
Received patient from day nurse, patient stable, no complains.
[2018-03-26] MEDS: ASPIRIN 81 MG CHEW TAB PO SCH (20:02)
[2018-03-26] MEDS: HYDROXYZINE HCL 25 MG TAB PO SCH (20:02)
[2018-03-26] MEDS: DIGOXIN 0.125 MG TAB PO SCH (20:03)
[2018-03-26] MEDS: SOLIFENACIN SUCCINATE 5 MG TAB PO SCH (20:03)
[2018-03-26] MEDS: SIMVASTATIN 40 MG TAB PO SCH (20:03)
[2018-03-26] MEDS: SENNA-S TABLET PO SCH (20:14)
[2018-03-26] MEDS: AZTREONAM 1 GM/NS 50 ML 50 ML IV SCH (20:14)
--- NOTE | 2018-03-26 20:35 | Consultation ---
DATE OF CONSULTATION: March 26, 2018 PULMONARY CONSULTATION REASON FOR CONSULTATION: Shortness of breath and fever causing pneumonia. HISTORY OF PRESENT ILLNESS: Ms. Loredo is a 73-year-old female who presented, admitted for UTI. She has a history of stroke with left-sided weakness and she has been wheelchair bound. She started having fever of 100.1 and 100.6 and subsequently x-ray was done. Patient's x-ray showed evidence of pneumonia. She was started on treatment with IV antibiotics. She is feeling better; however, the daughter is concerned the patient is allergic Rocephin and she is having rash from that. She denies any complaints of chest pain, nausea, vomiting. REVIEW OF SYSTEMS GENERAL: Denies any fever or chills. HEENT: Denies any head trauma. ENT denies any earache. CVS: Denies any chest pain. RESPIRATORY: Denies any shortness of breath. REST OF THE REVIEW SYSTEMS: Negative except as in HPI. PAST MEDICAL HISTORY: Hypertension, history of stroke with left-sided weakness, hyperlipidemia. PAST SURGICAL HISTORY: None. FAMILY HISTORY AND SOCIAL HISTORY: Does not smoke. Does not drink. Lives at home with her . PHYSICAL EXAM VITAL SIGNS: Temperature 98.5, pulse of 106, blood pressure 117/54, respiratory rate of 18. HEENT: Head atraumatic, normocephalic. NECK: Supple. CHEST: Clear to auscultation bilaterally. Occasional crackles. HEART: S1, S2 audible. EXTREMITIES: No pedal edema. NEUROLOGICAL: Awake and alert. LABS: White count was 14,000 on the 15th, today is 10,000. Hemoglobin 9.5. Chemistry is within normal limits. Urine culture was Pseudo fluorescens and Staph epi. CHEST X-RAYS: Showing multifocal air opacities. I have reviewed the images. ASSESSMENT AND PLAN: Ms. Loredo is a 73-year-old female with pneumonia and she has a stroke. According to the daughter, she swallows normally; however, she is at risk of aspiration. PLAN 1. Swallowing evaluation. 2. Agree with IV antibiotics as ordered by infectious disease desktop support consultant; however, I will discontinue Rocephin and start the Azactam and patient is allergic to penicillin and now she is having some rash with Rocephin. Discussed with daughter at bedside and Rocephin should be in her allergy. 3. Nebulizer treatment as ordered. 1. Oxygen as needed to keep the O2 sat more than or equal to 92%. Job#: [id number] CQ
--- NOTE | 2018-03-26 20:36 | Discharge Summary ---
DEBO MATTSON (00:02) ELKIN LEMUS MD Job#: [id number] CQ
[2018-03-27] VITALS (8 sets, daily range): BP systolic 102–127; BP diastolic 55–65
[2018-03-27] MEDS: IPRATROPIUM BROMIDE 0.02% 2.5 ML NEB NEB SCH ×4 (00:05→20:00)
[2018-03-27] MEDS: ALBUTEROL SULF 0.083% NEB SOLN 3 ML NEB NEB SCH ×7 (00:05→23:10)
[2018-03-27] MEDS: SODIUM CHLORIDE 0.9% 1000ML 1,000 ML IV SCH ×2 (03:15→23:29)
[2018-03-27] MEDS: VANCOMYCIN 1GM/NS 250 ML 250 ML IV SCH ×2 (03:15→15:33)
[2018-03-27] MEDS: AZTREONAM 1 GM/NS 50 ML 50 ML IV SCH ×2 (06:45→21:09)
--- NOTE | 2018-03-27 07:41 | NUR ---
patient endorsed to next shift for continuity of care.
--- NOTE | 2018-03-27 07:56 | NUR ---
RECEIVED PATIENT ALERT AND VERBAL WITH SUPRAPUBIC CATHETER DRAINING WELL. NO COMPLAINTS.
[2018-03-27] MEDS: MIDODRINE 2.5 MG TAB PO SCH ×3 (10:10→17:10)
[2018-03-27] MEDS: BALSAM PERU/CASTOR OIL 5 GM OINT...G. TP SCH (10:10)
[2018-03-27] MEDS: FAMOTIDINE 20 MG TAB PO SCH (10:10)
[2018-03-27] MEDS: POLYETHYLENE GLYCOL 3350 17 GM PACK PO SCH ×2 (10:10→17:10)
--- NOTE | 2018-03-27 12:30 | NUR ---
ST Note: Attempted to complete Modified Barium Swallow study. However, radiology department not available so exam delayed until 2:00.
--- NOTE | 2018-03-27 14:03 | NUR ---
Spoke with Dr. Ch regarding discharge plan. He stated pt is doing better, but need to make sure her lungs clear up due to aspiration pna before he can discharge her. He's taking it day by day since pt and her are refusing snf. Pt will go home with home health on discharge.
--- NOTE | 2018-03-27 14:53 | NUR ---
ST Note: MBS completed. Full report to follow. Recommend: 1. mech soft diet with nectar thick liquids 2. alternate bites and sips, no straws 3. inpatient Neuromuscular Electrical Stimulation (NMES) with traditional dysphagia exercises 4. outpatient NMES
--- NOTE | 2018-03-27 16:58 | NUR ---
DR. WALKER TO CHANGE SUPRAPUBIC CATHETER TOMORROW. SUPPLIES GATHERED PER MD. REQUEST.
[2018-03-27] MEDS: SIMVASTATIN 40 MG TAB PO SCH (17:10)
[2018-03-27] MEDS: ASPIRIN 81 MG CHEW TAB PO SCH (17:10)
[2018-03-27] MEDS: SOLIFENACIN SUCCINATE 5 MG TAB PO SCH (17:10)
[2018-03-27] MEDS: HYDROXYZINE HCL 25 MG TAB PO SCH (17:10)
[2018-03-27] MEDS: DIGOXIN 0.125 MG TAB PO SCH (17:10)
[2018-03-27] MEDS: ACETAMINOPHEN 325 MG TAB PO PRN (21:09)
[2018-03-27] MEDS: SENNA-S TABLET PO SCH (21:09)
[2018-03-28] VITALS (8 sets, daily range): BP systolic 113–144; BP diastolic 56–83
[2018-03-28] MEDS: VANCOMYCIN 1GM/NS 250 ML 250 ML IV SCH ×3 (03:20→17:15)
[2018-03-28] MEDS: ALBUTEROL SULF 0.083% NEB SOLN 3 ML NEB NEB SCH ×5 (07:25→23:40)
[2018-03-28] MEDS: IPRATROPIUM BROMIDE 0.02% 2.5 ML NEB NEB SCH ×3 (07:25→19:35)
[2018-03-28] MEDS: MIDODRINE 2.5 MG TAB PO SCH ×3 (08:20→17:41)
[2018-03-28] MEDS: BALSAM PERU/CASTOR OIL 5 GM OINT...G. TP SCH (08:20)
[2018-03-28] MEDS: FAMOTIDINE 20 MG TAB PO SCH (08:20)
[2018-03-28] MEDS: POLYETHYLENE GLYCOL 3350 17 GM PACK PO SCH ×2 (08:20→17:41)
[2018-03-28] MEDS: AZTREONAM 1 GM/NS 50 ML 50 ML IV SCH ×2 (08:21→21:13)
--- NOTE | 2018-03-28 15:19 | Diagnostic Imaging Report ---
PROCEDURE:X-RAY MODIFIED BARIUM SWALLOW COMPARISON:None. INDICATIONS:Pneumonia DISCUSSION:Fluoroscopic examination was performed in conjunction with speech pathology, during swallowing of a variety of thin and thick liquid consistencies. Fluoroscopy time: One minute and 29 seconds Total dose: 1.69 mGy CONCLUSION:Consistent penetration with silent aspiration. Please see the report from speech pathology for complete details. [place] Deluna D.O. Dictated by: [place] Deluna D.O. on 03/28/2018 at 15:29 Electronically approved by: [place] Deluna D.O. on 03/28/2018 at 15:29
--- NOTE | 2018-03-28 17:08 | NUR ---
Nutrition Screen Note RD Recommendation for Physician: - Continue cardiac diet as ordered; diet texture per REPRODUCER Plan of Care: RD following, monitoring for adequacy and tolerance Nutrition reason for involvement: Follow up Primary Diagnose(s): Altered mental status, UTI Ht:65 in Wt:155lb 03/15 admit weight; 165lb 03/21; 165lb 03/28 BMI:25.8 kg/m2 IBW:125lb RD Assessment: 03/28 Chart reviewed. NMES has been ordered. Visited pt in the room. Sitter on bedside to provide hx. Pt has been eating very well with 75-100% recorded meal intake. No GI complains noted. LB M- 03/27, soft stool after Miralax was given. Will continue to monitor and follow. 03/21: Chart reviewed. Pt reports improved appetite with ~75-100% meal intake during hospital stay. No GI complains noted. LBM 03/20. Pt denies any difficulty chewing or swallowing. Will continue to monitor and follow. (03/17/2018) Initial encounter with patient. Diet Hx: Pt has no known food allergies. Medications: MAR reviewed. Physical activity and function: Pt is able to feed herself and needs setup. Pt ambulates with a WC due to left hemiparesis. Nutrition - focused physical findings: Pt has missing teeth has dentures, but were left at home. Pt denies and difficulty chewing or swallowing, N,V or diarrhea. denies any wt changes. reports a good appetite and PO intake today. Current Diet: Cardiac diet Malnutrition Evaluation (03/17/2018) The patient does not meet criteria for a specified degree of malnutrition at this time. Will re-evaluate at follow-up as appropriate. Diet Education Needs Assessment: Diet education not indicated. Diet Adequacy: Meeting calorie needs, Meeting protein needs, Meeting fluid needs Tolerance: Tolerating PO Nutrition Care Level: Low Deb Cruz, MS, RD, LD
[2018-03-28] MEDS: DIGOXIN 0.125 MG TAB PO SCH (17:41)
[2018-03-28] MEDS: SOLIFENACIN SUCCINATE 5 MG TAB PO SCH (17:41)
[2018-03-28] MEDS: ASPIRIN 81 MG CHEW TAB PO SCH (17:41)
[2018-03-28] MEDS: SIMVASTATIN 40 MG TAB PO SCH (17:41)
[2018-03-28] MEDS: HYDROXYZINE HCL 25 MG TAB PO SCH (17:41)
--- NOTE | 2018-03-28 19:25 | NUR ---
RECEIVED PATIENT RESTING IN BED, AAOX2-3, FAMILY AT BEDSIDE. DENIES PAIN, DENIES NEEDS. PATIENT IN STABLE CONDITION. BED LOCKED AND IN LOWEST POSITION. CALL LIGHT WITHIN EASY REACH. WILL CONTINUE TO MONITOR THE PATIENT CLOSELY .
[2018-03-28] MEDS: ACETAMINOPHEN 325 MG TAB PO PRN (21:13)
[2018-03-28] MEDS: SENNA-S TABLET PO SCH (21:13)
[2018-03-29] VITALS (7 sets, daily range): BP systolic 122–139; BP diastolic 65–90
[2018-03-29] MEDS: ALBUTEROL SULF 0.083% NEB SOLN 3 ML NEB NEB SCH ×6 (03:20→22:15)
[2018-03-29] MEDS: IPRATROPIUM BROMIDE 0.02% 2.5 ML NEB NEB SCH ×4 (03:20→19:15)
[2018-03-29] MEDS: VANCOMYCIN 1GM/NS 250 ML 250 ML IV SCH ×2 (09:31→22:00)
[2018-03-29] MEDS: FAMOTIDINE 20 MG TAB PO SCH (09:32)
[2018-03-29] MEDS: BALSAM PERU/CASTOR OIL 5 GM OINT...G. TP SCH (09:32)
[2018-03-29] MEDS: MIDODRINE 2.5 MG TAB PO SCH ×3 (09:32→17:24)
[2018-03-29] MEDS: SODIUM CHLORIDE 0.9% 1000ML 1,000 ML IV SCH ×2 (09:32→14:37)
[2018-03-29] MEDS: POLYETHYLENE GLYCOL 3350 17 GM PACK PO SCH ×2 (09:32→17:24)
[2018-03-29] MEDS: AZTREONAM 1 GM/NS 50 ML 50 ML IV SCH ×2 (09:32→20:50)
[2018-03-29] MEDS: SOLIFENACIN SUCCINATE 5 MG TAB PO SCH (17:24)
[2018-03-29] MEDS: HYDROXYZINE HCL 25 MG TAB PO SCH (17:24)
[2018-03-29] MEDS: SIMVASTATIN 40 MG TAB PO SCH (17:24)
[2018-03-29] MEDS: ASPIRIN 81 MG CHEW TAB PO SCH (17:24)
[2018-03-29] MEDS: DIGOXIN 0.125 MG TAB PO SCH (17:24)
[2018-03-29] MEDS: SENNA-S TABLET PO SCH (20:57)
[2018-03-30] VITALS: BP 135/65
[2018-03-30] MEDS: ALBUTEROL SULF 0.083% NEB SOLN 3 ML NEB NEB SCH ×3 (02:40→10:38)
[2018-03-30] MEDS: IPRATROPIUM BROMIDE 0.02% 2.5 ML NEB NEB SCH ×2 (02:40→07:46)
[2018-03-30 04:00] VITALS: BP 136/75
[2018-03-30 08:00] VITALS: BP 132/85
--- NOTE | 2018-03-30 08:11 | NUR ---
IMM letter delivered and explained. Pt and her at bedside stated they were ready to go home. Signed copy placed in chart. Copy to pt's . Martina, speech therapy at bedside. Stated pt would benefit from NMES. She has outpt orders in case HH isn't able to do that particular therapy. CM called and left a message for [facility].
[2018-03-30] MEDS: POLYETHYLENE GLYCOL 3350 17 GM PACK PO SCH (09:00)
[2018-03-30 09:10] VITALS: BP 132/85
[2018-03-30] MEDS: AZTREONAM 1 GM/NS 50 ML 50 ML IV SCH (09:59)
[2018-03-30] MEDS: MIDODRINE 2.5 MG TAB PO SCH (09:59)
[2018-03-30] MEDS: BALSAM PERU/CASTOR OIL 5 GM OINT...G. TP SCH (09:59)
[2018-03-30] MEDS: FAMOTIDINE 20 MG TAB PO SCH (09:59)
--- NOTE | 2018-03-30 11:00 | NUR ---
ASHLEY spoke to Fani at [facility]. Informed her that pt will be discharging today. She stated that due to the holiday, they may not be able to see pt this , but will be able to on Monday. They are waiting to hear back from the speech therapy department to see if they are able to do NMES. ASHLEY spoke with pt and her at bedside and updated them. Pt's has outpatient therapy information and speech therapist's contact information. Pt will be discharging home with home health [facility] [address] [place] [address] [address] [place], [place] [id number]
--- NOTE | 2018-03-30 13:38 | NUR ---
PT DISCHARGED HOME WITH PRESCRIPTION MEDS, IV TAKEN OUT SITE LOOKS CLEAN AND DRY. NO S/S OF RESP DISTRESS NOTED. WRITTEN AND VERBAL TEACHING DONE PRIOR TO DISCHARGING. PT TRANSPORTED VIA W/C BY STAFF TO PRIVATE AUT[facility]. FAMILY WITH HER AT TIME OF D/C
== END 2018-03-30 13:23 | disposition home health service (06) | DRG 698 ==
LOC: ER 12:38 → ERHOLD 17:41 → MED/SURG2 20:52
PROVIDERS: ADMIT Internal Medicine; ATTEND Internal Medicine
DX: T83.518A Infection and inflammatory reaction due to other urinary catheter, initial encounter (principal); A41.9 Sepsis, unspecified organism; J69.0 Pneumonitis due to inhalation of food and vomit; G93.41 Metabolic encephalopathy; R65.20 Severe sepsis without septic shock; I69.359 Hemiplegia and hemiparesis following cerebral infarction affecting unspecified side; K56.7 Ileus, unspecified; Z16.24 Resistance to multiple antibiotics; E83.51 Hypocalcemia; D44.10 Neoplasm of uncertain behavior of unspecified adrenal gland; N28.1 Cyst of kidney, acquired; R33.9 Retention of urine, unspecified; E66.9 Obesity, unspecified; Z68.27 Body mass index [BMI] 27.0-27.9, adult; N31.2 Flaccid neuropathic bladder, not elsewhere classified; B96.5 Pseudomonas (aeruginosa) (mallei) (pseudomallei) as the cause of diseases classified elsewhere; B95.7 Other staphylococcus as the cause of diseases classified elsewhere; D64.9 Anemia, unspecified
CPT/HCPCS: 36415; 70450; 71045; 74018; 74176; 74230; 80048; 80053; 80202; 81001; 82550; 82553; 82948; 83605; 83690; 84484; 85025; 87040; 87086; 87186; 94640; 96361; 97139; 99284; J0696; J1940; J2405; J3370; J3410; J7030

== ENCOUNTER 2018-05-24 08:33 | Inpatient (IN) | payer MEDICARE ==
[2018-05-24] VITALS (13 sets, daily range): BP systolic 81–142; BP diastolic 50–100
[~2018-05-24] VITALS: Ht 165.1 cm; Wt 72.8 kg
[~2018-05-24 08:33] MED LIST changes: +CETIRIZINE HCL10 MG PO; +LISINOPRIL5 MG PO
--- OUTSIDE RECORDS SUMMARY | 2018-05-24 08:36 | XMS REPORT | Clinical Summary ---
Author Author ALEX [facility] Address Unknown Phone Unavailable Care Team Providers Care Computer Game Programmer Name Role Phone Andres New PCP Allergies [...] Lot Implanted Type Area Manufactur er 06/02/2018 [id number] / [id number] / Valve,Mitral Epic Stented Porcine Valves N/A: Heart [facility] [employer] DELIA 27mm - [id number] MEDICAL Implanted: Qty: 1 on 01/15/2015 by Eitan Burris MD Explanted: Results Not on fileafter 05/23/2017 Insurance Payer Benefit Subscriber ID Type Phone Address Plan / Group MEDICARE MEDICARE A xxxxxxxxxx Medicare B MCR SUPPLEMENT/INDIVIDUAL AARP/UNITE xxxxxxxxxxx Medigap D HEALTHCARE Advance Directives For more information, please contact: [address] [address] Date Inactivated Comments Code Status [...]
[2018-05-24] MEDS ORDERED: SODIUM CHLORIDE 0.9% 1000ML 2,000 ML IV ONE (09:00)
[2018-05-24 09:43] LABS: BASOPHILS # (AUTO) 0.1 (0.0-0.1); BASOPHILS % 0.3 % (0.0-1.0); HEMOGLOBIN 11.5 g/dL (12.0-16.0); LYMPHOCYTES # (AUTO) 3.8 (1.0-3.2); LYMPHOCYTES % 9.8 % (18.0-39.1); MEAN CORPUSCULAR HEMOGLOBIN 27.5 pg (28-32); MEAN CORPUSCULAR HGB CONC 31.9 g/dL (31-35); MEAN CORPUSCULAR VOLUME 86.1 fL (81-99); MONOCYTES # (AUTO) 2.5 (0.2-0.8); MONOCYTES % 6.6 % (4.4-11.3); NEUTROPHILS # (AUTO) 31.3 (2.1-6.9); NEUTROPHILS % 81.6 % (38.7-80.0); PLATELET COUNT 492 x10e3/uL (140-360); RED BLOOD COUNT 4.18 x10e6/uL (3.6-5.1); RED CELL DISTRIBUTION WIDTH 15.2 % (11.7-14.4)
[2018-05-24 09:48] LABS: CLARITY,URINE CLOUDY (CLEAR); COLOR,URINE YELLOW (YELLOW)
[2018-05-24 09:49] LABS: BILIRUBIN,URINE 1+ (NEGATIVE); KETONES,URINE NEGATIVE (NEGATIVE); LEUKOCYTE ESTERASE ,URINE 2+ (NEGATIVE); NITRITE,URINE NEGATIVE (NEGATIVE); PROTEIN,URINE DIPSTICK 2+ (NEGATIVE); URINE UROBILINOGEN 0.2 mg/dL (0.2 - 1)
--- NOTE | 2018-05-24 09:55 | NUR ---
PLACED AVELYN LIFE PATCH AND BARRIER CREAM ON BUTTOCKS.
[2018-05-24 10:04] LABS: BACTERIA,URINE MANY /HPF; RBC,URINE 21-50 /HPF (0-5); WBC,URINE (MAN) >50 /HPF (0-5)
[2018-05-24 10:05] LABS: EPITHELIAL CELLS,URINE FEW /LPF
[2018-05-24 10:06] LABS: ALBUMIN 2.3 g/dL (3.5-5.0); ALBUMIN/GLOBULIN RATIO 0.4 (0.8-2.0); ANION GAP 20.8 mmol/L (8-16); CALCIUM 9.7 mg/dL (8.4-10.2); CREATININE, SERUM 1.21 mg/dL (0.57-1.11); POTASSIUM 3.8 mmol/L (3.5-5.1)
[2018-05-24] MEDS ORDERED: VANCOMYCIN 1GM/NS 250 ML 250 ML IV ONE (10:15)
[2018-05-24] MEDS ORDERED: TOBRAMYCIN 40 MG/ML 2ML VIAL IV ONE (10:15)
[2018-05-24] MEDS ORDERED: SODIUM CHLORIDE 0.9% 250ML 250 ML IV ONE (10:15)
[2018-05-24] MEDS ORDERED: TOBRAMYCIN IV SCH ×2 (10:30→12:15)
[2018-05-24] MEDS ORDERED: SODIUM CHLORIDE 0.9% IV SCH ×2 (10:30→12:15)
[2018-05-24 10:42] LABS: MAGNESIUM 1.8 MG/DL (1.3-2.1); PHOSPHORUS 5.3 MG/DL (2.3-4.7)
[2018-05-24 10:50] LABS: BAND NEUTROPHILS % (MANUAL) 5 %; LYMPHOCYTES % (MANUAL) 7 % (19-48); MONOCYTES % (MANUAL) 8 % (3.4-9.0); NEUTROPHILS % (MANUAL) 80 % (40-74)
[2018-05-24 10:51] LABS: ANISOCYTOSIS SLIGHT; HYPOCHROMASIA SLIGHT; PLATELET ESTIMATE ADEQUATE; PLATELET MORPHOLOGY COMMENT NORMAL; RBC MORPHOLOGY COMMENT NORMAL
[2018-05-24 11:04] LABS: THYROID STIMULATING HORMONE 1.223 uIU/mL (0.350-4.940)
[2018-05-24] MEDS ORDERED: ACETAMINOPHEN 1000 MG/100 ML IV PRN (11:15)
[2018-05-24] MEDS ORDERED: ONDANSETRON HCL INJ 2MG/ML 2ML 2 MG/ML VIAL IV PRN (11:15)
[2018-05-24] MEDS ORDERED: SODIUM CHLORIDE FLUSH 10 ML SYR INJ PRN (11:15)
--- NOTE | 2018-05-24 11:20 | NUR ---
OBTAINED CONSENT FORM FOR CENTRAL LINE PLACEMENT BY . PT IS CONFUSED AND UNABLE TO SIGN CONSENT. DR. RIGGS EDUCATED PT AND FAMILY ON RISKS AND BENEFITS OF PROCEDURE. VERBALIZED UNDERSTANDING. NO SIGNS OF DISTRESS NOTED.
[2018-05-24] MEDS: SODIUM CHLORIDE 0.9% 1000ML 1,000 ML IV SCH ×2 (12:16→21:10)
--- OUTSIDE RECORDS SUMMARY | 2018-05-24 12:46 | XMS REPORT | Clinical Summary ---
Author Author ALEX [facility] Address Unknown Phone Unavailable Care Team Providers Care Surgical Attendant Name Role Phone Andres New PCP Allergies [...] Lot Implanted Type Area Manufactur er 06/02/2018 [id number] / [id number] / Valve,Mitral Epic Stented Porcine Valves N/A: Heart ST [employer] DELIA 27mm - [id number] MEDICAL Implanted: Qty: 1 on 01/15/2015 by Eitan Burris MD Explanted: Results Not on fileafter 05/23/2017 Insurance Payer Benefit Subscriber ID Type Phone Address Plan / Group MEDICARE MEDICARE A xxxxxxxxxx Medicare B MCR SUPPLEMENT/INDIVIDUAL AARP/UNITE xxxxxxxxxxx Medigap D HEALTHCARE Advance Directives For more information, please contact: [address] [address] Date Inactivated Comments Code Status [...]
[2018-05-24] MEDS ORDERED: ATORVASTATIN CA20 MG PO (13:06)
[2018-05-24] MEDS ORDERED: MELATONIN3 MG PO (13:06)
[2018-05-24] MEDS ORDERED: DIPHENHYDRAMINE HCL INJ 50 MG/ML VIAL IV PRN (13:30)
[2018-05-24] MEDS: NOREPINEPHRINE INJ 4MG/4ML 8 MG in DEXTROSE 5% 250ML 250 ML IV SCH (13:45)
--- NOTE | 2018-05-24 14:14 | Consultation ---
DATE OF CONSULTATION: May 24, 2018 REASON FOR CONSULTATION: UTI, sepsis, in a patient who has multidrug allergies. HISTORY OF PRESENT ILLNESS: This patient is a 73-year-old female. The patient was brought by her family because of not feeling well. The patient had apparently some murky urine, fever, chills and altered mental status. The patient has a history of UTI. She was here in March 2017. I was asked to see her at that time because she has allergies to several antibiotics; but according to the family, it is mainly a drug rash. The patient is known to have colonization with multidrug resistance, dementia, suprapubic catheter, hypertension, urinary incontinence. The last time she was here she was seen by GI. She had a CAT scan of the abdomen and pelvis. She does have a history of CVA, dementia, COPD, left hemiparesis, chronic atrial fibrillation. LABORATORY DATA: White count is 38.3, hemoglobin 11, hematocrit 36, platelets 492. Sodium 137, potassium 3.8, creatinine 1.2. Lactic acid is 41. PHYSICAL EXAMINATION GENERAL: She is noncommunicative. VITALS: Stable. Temperature 98.2, heart rate 109, respirations 22. Blood pressure 85/42. HEENT: She is normocephalic. Does not appear icteric. NECK: Supple. CHEST: A few crackles. COR: S1 and S2. No murmur. ABDOMEN: Soft. IMPRESSION 1. Sepsis on admission in a patient who has history of bacteriuria and history of Clostridium difficile. We will get blood cultures and urine cultures. Will put her on meropenem. Will also do vancomycin p.o. for now and she how she dos tomorrow. Patient does have constipation. 2. Dementia. 3. Suprapubic catheter. Will follow with you. Job#: [id number]
--- NOTE | 2018-05-24 14:44 | Diagnostic Imaging Report ---
Examination: Single AP view of the chest. COMPARISON: 03/24/2018 INDICATION: Central line placement DISCUSSION: Interval placement of a right internal jugular central venous catheter with the tip terminating over the expected region of the superior cavoatrial junction. No pneumothorax. Stable appearance of the heart and lungs with postsurgical changes of the mediastinum. Prominence of the pulmonary interstitium which may reflect multifocal pneumonia or pulmonary edema. No acute osseous abnormality. IMPRESSION: Interval placement of a right internal jugular central venous catheter with the tip projecting over the expected region of the superior cavoatrial junction. No pneumothorax. Signed by: Dr. Jayme Esparza M.D. on 05/24/2018 2:41 PM
--- NOTE | 2018-05-24 16:53 | NUR ---
CONSULT CALLED TO DR YOUNG
[2018-05-24] MEDS: ASPIRIN 81 MG CHEW TAB PO SCH (17:48)
[2018-05-24] MEDS: VANCOMYCIN 250MG/5ML ORAL SOLN PO SCH (17:48)
[2018-05-24] MEDS: DIGOXIN 0.125 MG TAB PO SCH (17:48)
[2018-05-24] MEDS: MEROPENEM 500MG 500 MG in SODIUM CHLORIDE 0.9% 50ML 50 ML IV SCH (22:43)
[2018-05-24] MEDS ORDERED: MEROPENEM 500 MG VIAL ONE (22:44)
[2018-05-24] MEDS ORDERED: NOREPINEPHRINE 8 MG/D5W 250 ML 250 ML ONE (23:59)
[2018-05-25] VITALS (31 sets, daily range): BP systolic 74–135; BP diastolic 17–107
[2018-05-25] MEDS: NOREPINEPHRINE INJ 4MG/4ML 8 MG in DEXTROSE 5% 250ML 250 ML IV SCH (00:19)
[2018-05-25] MEDS: VANCOMYCIN 250MG/5ML ORAL SOLN PO SCH ×4 (00:45→18:19)
[2018-05-25 04:42] LABS: BASOPHILS # (AUTO) 0.1 (0.0-0.1); BASOPHILS % 0.3 % (0.0-1.0); EOSINOPHILS # (AUTO) 0.1 (0.0-0.4); EOSINOPHILS % 0.4 % (0.0-6.0); HEMATOCRIT 29.2 % (34.2-44.1); HEMOGLOBIN 9.1 g/dL (12.0-16.0); LYMPHOCYTES % 4.8 % (18.0-39.1); MEAN CORPUSCULAR HEMOGLOBIN 27.1 pg (28-32); MEAN CORPUSCULAR HGB CONC 31.2 g/dL (31-35); MEAN CORPUSCULAR VOLUME 86.9 fL (81-99); MONOCYTES # (AUTO) 0.7 (0.2-0.8); MONOCYTES % 3.5 % (4.4-11.3); NEUTROPHILS # (AUTO) 18.7 (2.1-6.9); NEUTROPHILS % 90.3 % (38.7-80.0); PLATELET COUNT 350 x10e3/uL (140-360); RED BLOOD COUNT 3.36 x10e6/uL (3.6-5.1)
[2018-05-25 05:00] LABS: ALANINE AMINOTRANSFERASE 10 IU/L (0-55); ALBUMIN 1.8 g/dL (3.5-5.0); ALBUMIN/GLOBULIN RATIO 0.4 (0.8-2.0); ALKALINE PHOSPHATASE 76 IU/L (40-150); ANION GAP 15.3 mmol/L (8-16); BLOOD UREA NITROGEN 18 mg/dL (7-26); BUN/CREATININE RATIO 22 (6-25); CALCIUM 8.5 mg/dL (8.4-10.2); CARBON DIOXIDE 21 mmol/L (22-29); CHLORIDE 109 mmol/L (98-107); CREATININE, SERUM 0.82 mg/dL (0.57-1.11); EST GLOMERULAR FILTRATION RATE > 60 ML/MIN (60-); GLUCOSE 107 mg/dL (74-118); POTASSIUM 3.3 mmol/L (3.5-5.1); SODIUM 142 mmol/L (136-145)
--- NOTE | 2018-05-25 06:29 | Diagnostic Imaging Report ---
EXAMINATION: CHEST SINGLE (PORTABLE) INDICATION: SOB COMPARISON: 05/24/2018 FINDINGS: AP view TUBES and LINES: Right internal jugular central venous catheter tip overlies the superior cavoatrial junction, unchanged. LUNGS: Bilateral multifocal airspace opacity, stable. PLEURA: No pleural effusion or pneumothorax. HEART AND MEDIASTINUM: The cardiomediastinal silhouette is unremarkable. BONES AND SOFT TISSUES: No acute osseous lesion. Median sternotomy wires. Soft tissues are unremarkable. UPPER ABDOMEN: No free air under the diaphragm. IMPRESSION: No significant interval change. Bilateral airspace opacities may represent edema or infection. Signed by: DR. Jayro Massey MD on 05/25/2018 6:25 AM
[2018-05-25] MEDS ORDERED: MIDODRINE 2.5 MG TAB PO SCH (09:00)
[2018-05-25] MEDS ORDERED: MEROPENEM 500 MG VIAL ONE ×3 (10:26→22:37)
[2018-05-25] MEDS: MEROPENEM 500MG 500 MG in SODIUM CHLORIDE 0.9% 50ML 50 ML IV SCH ×2 (10:27→22:17)
--- NOTE | 2018-05-25 12:18 | NUR ---
WOUND CARE CONSULTATION: INITIAL EVALUATION Patient admitted from home to ER for Sepsis, UTI, AMS HX: - Dementia, SPC, HTN, Incontinence, CVA, COPD, Left Hemiparesis, Chronic A-Fib, C-Diff, Non-Healing Ulcers to Sacro-gluteal area since Jan 2018. LABS: WBC20.64 HGB9.1 HCT29.2 NEUT%90.3 [id number] ALB1.8 - WC Consulted for Sacral Wound Stage II Pressure Ulcers Present on Admission. PATIENT VISIT: - Chuy Score 12 - Moderate PUP Active - Alternating Pressure Mattress in Place - Assessment Performed - Left Sided Hemiparesis. - Bilateral Heels - Blanchable Erythema with heel protectors in place. - SPC site intact. No Drainage, No Redness, No excoriation Draining yellow clear urine. - Abdominal Folds- bilaterally appear to be in healing stages. [place] epithelialization at periwound. Non draining. - Bilateral Groin - no rash, no redness noted, denies itching. - Bilateral Gluteal- Annular ulcerations present consistent with pressure areas. Periwound with rubor, blanchable. Noteworthy that patient was suffering from C-Diff in the past and had incontinence related dermatitis as a result. IMPRESSION: 1.Right Sacro-gluteal - Stage II - PU - POA 2. Left Sacro-gluteal - Stage II - PU - POA 3. Bilateral Abdominal Fold Ulcers - Moisture Related Dermatitis. RECOMMENDATION: 1.Right Sacro-gluteal - Stage II - PU - POA - Cleanse wound with Normal Saline and 4x4 Gauze. - Apply Venelex Ointment and Cover with Allevyn Sacrum foam dressing Daily and PRN Soiling. 2. Left Sacro-gluteal - Stage II - PU - POA - Cleanse wound with Normal Saline and 4x4 Gauze. - Apply Venelex Ointment and Cover with Allevyn Sacrum foam dressing Daily and PRN Soiling. 3. Bilateral Abdominal Fold Ulcers - Moisture Related - - Cleanse with Mild Soap and Water and Pat Dry Thoroughly - Apply Nystatin Cream q12H and PRN Soiling. 4. Continue Alternating Pressure Air Mattress 5. Continue Moderate PUP Protocol 6. Continue Bilateral Heel Protectors and Offloading with Pillows. 7. Continue to turn and reposition q2h. Thank you for consulting with Wound Care. Addendum: 05/25/18 at 1233 by Vlad Avila RN Amended: Links added. Addendum: 05/25/18 at 1246 by Vlad Avila RN DISCHARGE PLANNING: PATIENT HAS MEDICAL BED FRAME AT HOME WITHOUT AIR MATTRESS - HAS NON HEALING STAGE II PRESSURE ULCERS TO BILATERAL GLUTEALS - PATIENT REQUIRES AIR MATTRESS VS- SPECIALTY MATTRESS FOR HOME USE. - FAMILY MEMBER TO BRING INFORMATION ON HOME BED TYPE TO FACILITATE DME ORDERING.
[2018-05-25] MEDS: SODIUM CHLORIDE 0.9% 1000ML 1,000 ML IV SCH ×2 (12:22→22:17)
[2018-05-25] MEDS: ATORVASTATIN 20 MG TAB PO SCH (12:28)
[2018-05-25] MEDS: MIDODRINE HCL 5 MG TABLET PO SCH ×2 (12:28→18:19)
--- NOTE | 2018-05-25 15:18 | NUR ---
CASE MANAGEMENT INITIAL ASSESSMENT Cadmium Liquor Maker to bedside to discuss plan of care with patient/family. CM/SW role and care transitions discussed. Anticipated discharge plan discussed along with duration of care. CM/SW discussed patients right to make decisions in care. CM/SW work hours given. Patient lives: [place] Admit/Transfer: ER Hospital/ER visits since last admit: LAST ADM MARCH 2018 POA/Emergency contact: / MARY @ [phone] Current/Previous [facility] PCP/Follow-up Care: DR. ANGELA BONILLA Current/Previous DME: walker, cane, wheelchair, hospital bed, shower is wheelchair accessible, [place] Other Services: PRIVATE PAY PROVIDER Employment Status: UNEMPLOYED Areas of Concerns: NONE Referral Needs: NONE AT THIS TIME Education Needs: NONE AT THIS TIME IMM/SMILEY given and signed (if applicable): SIGNED 05/24/2018 Goal for discharge: RETURN HOME CM/SW left business card at the bedside with contact information. Name and number was also written on the patients whiteboard. Patient verbalized understanding of discussion. CM will follow-up with ongoing discharge and transition of care needs.
--- NOTE | 2018-05-25 16:28 | NUR ---
Nutrition Intervention Note RD Recommendation(s) for Physician: -Continue cardiac diet as ordered; diet texture per MAINTENANCE DEPARTMENT MANAGER -Consult MAINTENANCE DEPARTMENT MANAGER for swallow evaluation -Rec MVi w/minerals and vitamin C to support wound healing -Rec [place] BID for wound healing Plan of Care: RD following, monitoring for tolerance and adequacy, ONS rec Nutrition reason for involvement: Nutrition Risk Trigger MST RD Assessment 05/25 Chart reviewed. 73yo F, who was admitted for sepsis due to UTI. Pt was discussed during AM rounds. Currently on abx. Wound care following. Visited pt in the room. Caregiver presented on bedside to provide hx due to dementia. Per caregiver, pt has had good appetite with adequate meal intake LOGISTICS ADMINISTRATOR. Per caregiver, pt has been drinking her liquid with thickener, due to hx of dysphagia. No chewing difficulty noted. No GI complains noted today. RD rec additional protein and MVi for wound healing. Will continue to monitor and follow. Principal Problems/Diagnoses: sepsis, UTI, AMS PMH: Dementia, SPC, HTN, Incontinence, CVA, COPD, Left Hemiparesis, Chronic A-Fib, C-Diff, Non-Healing Ulcers to Sacro-gluteal area since Jan 2018. GI: abdomen soft, flat, non-tender, LBM 05/23 Skin: stage II sacro-gluteal PU Labs: (05/25) K 3.3 L Meds: lipitor, abx, NaCl Ht: 65in Wt: 163lb BMI: 27.1kg/m2 IBW: 125lb Malnutrition Evaluation (05/25/2018) The patient does not meet criteria for a specified degree of malnutrition at this time. Will re-evaluate at follow-up as appropriate. Nutrition Prescription (Diet Order): cardiac diet Estimated Nutritional Needs: Calories: 1480 1850kcal (20-25kcal/kg/d) Weight used: current BW Protein: 89 -148g (1.2-2g/kg/d) Weight used: current BW Diet Adequacy: Meeting calorie needs, Meeting protein needs Diet Education Needs Assessment: Diet education indicated, but patient not appropriate for education at this time. Nutrition Care Level: low Nutrition Diagnosis: Increased protein needs related to altered skin integrity as evidenced by pressure ulcer stage II. Goal: Patient will meet 75-100% of estimated needs by follow up Progress: N/A Interventions: Mineral-modified diet, Commercial food, Recommended Modifications, Skill Development, Multivitamin/mineral supplement therapy, Collaboration with other providers Monitoring/Evaluation: Total energy intake, Total protein intake, Modified diet, supplement, Weight change Signed: Deb Cruz MS, RD, LD
[2018-05-25] MEDS: ASPIRIN 81 MG CHEW TAB PO SCH (18:19)
[2018-05-25] MEDS: DIGOXIN 0.125 MG TAB PO SCH (18:19)
[2018-05-25] MEDS: NYSTATIN 100,000 UNITS/GM CRM 30GM TUBE TOP SCH (22:17)
[2018-05-26] VITALS (30 sets, daily range): BP systolic 70–144; BP diastolic 36–110
[2018-05-26] MEDS: VANCOMYCIN 250MG/5ML ORAL SOLN PO SCH ×3 (00:05→12:00)
[2018-05-26] MEDS: SODIUM CHLORIDE 0.9% 1000ML 1,000 ML IV SCH ×3 (03:10→20:50)
[2018-05-26 05:44] LABS: BASOPHILS # (AUTO) 0.1 (0.0-0.1); BASOPHILS % 0.3 % (0.0-1.0); EOSINOPHILS # (AUTO) 0.3 (0.0-0.4); EOSINOPHILS % 2.1 % (0.0-6.0); HEMATOCRIT 28.4 % (34.2-44.1); HEMOGLOBIN 9.1 g/dL (12.0-16.0); LYMPHOCYTES # (AUTO) 1.5 (1.0-3.2); LYMPHOCYTES % 9.7 % (18.0-39.1); MEAN CORPUSCULAR VOLUME 84.3 fL (81-99); MONOCYTES # (AUTO) 0.9 (0.2-0.8); MONOCYTES % 6.2 % (4.4-11.3); NEUTROPHILS # (AUTO) 12.1 (2.1-6.9); NEUTROPHILS % 80.8 % (38.7-80.0); PLATELET COUNT 331 x10e3/uL (140-360); RED BLOOD COUNT 3.37 x10e6/uL (3.6-5.1); RED CELL DISTRIBUTION WIDTH 15.1 % (11.7-14.4)
[2018-05-26 06:17] LABS: ALANINE AMINOTRANSFERASE 22 IU/L (0-55); ALBUMIN 1.9 g/dL (3.5-5.0); ALBUMIN/GLOBULIN RATIO 0.4 (0.8-2.0); ALKALINE PHOSPHATASE 71 IU/L (40-150); ANION GAP 13.8 mmol/L (8-16); BLOOD UREA NITROGEN 13 mg/dL (7-26); BUN/CREATININE RATIO 17 (6-25); CALCIUM 8.3 mg/dL (8.4-10.2); CARBON DIOXIDE 21 mmol/L (22-29); CHLORIDE 108 mmol/L (98-107); CREATININE, SERUM 0.76 mg/dL (0.57-1.11); EST GLOMERULAR FILTRATION RATE > 60 ML/MIN (60-); GLUCOSE 101 mg/dL (74-118); MAGNESIUM 1.4 MG/DL (1.3-2.1); SODIUM 140 mmol/L (136-145)
[2018-05-26 06:19] LABS: POTASSIUM 2.8 mmol/L (3.5-5.1)
--- NOTE | 2018-05-26 06:40 | NUR ---
MD Tuttle paged for critical labs, awaiting results
[2018-05-26] MEDS ORDERED: POTASSIUM CHLORIDE 20 MEQ TAB CR PO STA (07:42)
[2018-05-26] MEDS ORDERED: MAGNESIUM SULFATE 2GM/50ML 50 ML IV ONE (07:45)
[2018-05-26] MEDS: BALSAM PERU/CASTOR OIL 60 GM OINT...G. TP SCH (08:08)
[2018-05-26] MEDS: NYSTATIN 100,000 UNITS/GM CRM 30GM TUBE TOP SCH ×2 (08:08→21:48)
[2018-05-26] MEDS: ATORVASTATIN 20 MG TAB PO SCH (08:11)
[2018-05-26] MEDS: MIDODRINE HCL 5 MG TABLET PO SCH ×2 (08:11→17:12)
[2018-05-26] MEDS ORDERED: MEROPENEM 500 MG VIAL ONE ×2 (09:04→20:48)
[2018-05-26] MEDS: MEROPENEM 500MG 500 MG in SODIUM CHLORIDE 0.9% 50ML 50 ML IV SCH ×2 (09:10→20:50)
[2018-05-26] MEDS ORDERED: POTASSIUM CHLORIDE 20 MEQ TAB CR PO SCH (12:00)
[2018-05-26] MEDS: NOREPINEPHRINE INJ 4MG/4ML 8 MG in DEXTROSE 5% 250ML 250 ML IV SCH (13:45)
[2018-05-26] MEDS ORDERED: ENOXAPARIN SOD INJ 40 MG/0.4 ML SYR SC ONE (15:00)
[2018-05-26] MEDS: ASPIRIN 81 MG CHEW TAB PO SCH (17:11)
[2018-05-26] MEDS: DIGOXIN 0.125 MG TAB PO SCH (17:12)
[2018-05-26] MEDS: ENOXAPARIN SOD INJ 40 MG/0.4 ML SYR SC SCH (20:50)
[2018-05-27] VITALS (25 sets, daily range): BP systolic 88–147; BP diastolic 55–108
[2018-05-27 05:24] LABS: BASOPHILS # (AUTO) 0.1 (0.0-0.1); BASOPHILS % 0.5 % (0.0-1.0); EOSINOPHILS # (AUTO) 0.5 (0.0-0.4); EOSINOPHILS % 5.2 % (0.0-6.0); HEMATOCRIT 28.2 % (34.2-44.1); LYMPHOCYTES # (AUTO) 2.1 (1.0-3.2); LYMPHOCYTES % 22.6 % (18.0-39.1); MEAN CORPUSCULAR HEMOGLOBIN 27.2 pg (28-32); MEAN CORPUSCULAR HGB CONC 31.9 g/dL (31-35); MEAN CORPUSCULAR VOLUME 85.2 fL (81-99); MONOCYTES # (AUTO) 0.8 (0.2-0.8); MONOCYTES % 8.6 % (4.4-11.3); NEUTROPHILS # (AUTO) 5.7 (2.1-6.9); NEUTROPHILS % 62.3 % (38.7-80.0); PLATELET COUNT 330 x10e3/uL (140-360); RED BLOOD COUNT 3.31 x10e6/uL (3.6-5.1); RED CELL DISTRIBUTION WIDTH 15.2 % (11.7-14.4)
[2018-05-27 05:46] LABS: ANION GAP 11.5 mmol/L (8-16); BLOOD UREA NITROGEN 10 mg/dL (7-26); BUN/CREATININE RATIO 14 (6-25); CALCIUM 8.1 mg/dL (8.4-10.2); CARBON DIOXIDE 21 mmol/L (22-29); CHLORIDE 113 mmol/L (98-107); CREATININE, SERUM 0.69 mg/dL (0.57-1.11); EST GLOMERULAR FILTRATION RATE > 60 ML/MIN (60-); GLUCOSE 81 mg/dL (74-118); POTASSIUM 3.5 mmol/L (3.5-5.1); SODIUM 142 mmol/L (136-145)
[2018-05-27] MEDS ORDERED: MEROPENEM 500 MG VIAL ONE ×2 (08:06→21:08)
[2018-05-27] MEDS: MEROPENEM 500MG 500 MG in SODIUM CHLORIDE 0.9% 50ML 50 ML IV SCH ×2 (08:19→21:48)
[2018-05-27] MEDS: NYSTATIN 100,000 UNITS/GM CRM 30GM TUBE TOP SCH ×2 (08:21→21:48)
[2018-05-27] MEDS: ATORVASTATIN 20 MG TAB PO SCH (08:21)
[2018-05-27] MEDS: SODIUM CHLORIDE 0.9% 1000ML 1,000 ML IV SCH ×2 (08:21→18:48)
[2018-05-27] MEDS: BALSAM PERU/CASTOR OIL 60 GM OINT...G. TP SCH (08:21)
[2018-05-27] MEDS: MIDODRINE HCL 5 MG TABLET PO SCH ×2 (08:21→18:48)
--- NOTE | 2018-05-27 11:35 | NUR ---
gave patient complete bed bath and changed linens. small BM during bath, SCDs replaced, heel protectors, turned position. pt itching at RIJ dressing site, area cleaned. will continue to monitor site
[2018-05-27] MEDS: NOREPINEPHRINE INJ 4MG/4ML 8 MG in DEXTROSE 5% 250ML 250 ML IV SCH (13:45)
[2018-05-27] MEDS ORDERED: DIPHENHYDRAMINE HCL ELIX 12.5 MG/5 ML UDC PO PRN (15:45)
[2018-05-27] MEDS ORDERED: DIPHENHYDRAMINE HCL ELIX 12.5 MG/5 ML UDC PO ONE (15:45)
[2018-05-27] MEDS ORDERED: AMIODARONE HCL 100 ML IV ONE (17:00)
[2018-05-27] MEDS ORDERED: AMIODARONE HCL 150 MG/100 ML BAG IV ONE (17:00)
[2018-05-27] MEDS ORDERED: AMIODARONE 900MG 500 ML IV SCH (17:20)
[2018-05-27] MEDS: DIGOXIN 0.125 MG TAB PO SCH (18:48)
[2018-05-27] MEDS: ASPIRIN 81 MG CHEW TAB PO SCH (18:48)
[2018-05-28] VITALS (28 sets, daily range): BP systolic 109–153; BP diastolic 50–124
[2018-05-28 05:37] LABS: BASOPHILS # (AUTO) 0.1 (0.0-0.1); BASOPHILS % 0.8 % (0.0-1.0); EOSINOPHILS # (AUTO) 0.7 (0.0-0.4); EOSINOPHILS % 6.4 % (0.0-6.0); HEMATOCRIT 28.3 % (34.2-44.1); LYMPHOCYTES # (AUTO) 2.1 (1.0-3.2); LYMPHOCYTES % 20.1 % (18.0-39.1); MEAN CORPUSCULAR HEMOGLOBIN 27.4 pg (28-32); MEAN CORPUSCULAR HGB CONC 31.8 g/dL (31-35); MONOCYTES # (AUTO) 0.8 (0.2-0.8); MONOCYTES % 7.5 % (4.4-11.3); NEUTROPHILS # (AUTO) 6.7 (2.1-6.9); NEUTROPHILS % 63.8 % (38.7-80.0); PLATELET COUNT 366 x10e3/uL (140-360); RED BLOOD COUNT 3.29 x10e6/uL (3.6-5.1); RED CELL DISTRIBUTION WIDTH 14.9 % (11.7-14.4)
[2018-05-28 06:11] LABS: ANION GAP 13.3 mmol/L (8-16); BLOOD UREA NITROGEN 7 mg/dL (7-26); BUN/CREATININE RATIO 11 (6-25); CALCIUM 8.1 mg/dL (8.4-10.2); CARBON DIOXIDE 20 mmol/L (22-29); CHLORIDE 110 mmol/L (98-107); CREATININE, SERUM 0.66 mg/dL (0.57-1.11); EST GLOMERULAR FILTRATION RATE > 60 ML/MIN (60-); GLUCOSE 96 mg/dL (74-118); MAGNESIUM 1.6 MG/DL (1.3-2.1); POTASSIUM 3.3 mmol/L (3.5-5.1); SODIUM 140 mmol/L (136-145)
[2018-05-28] MEDS: SODIUM CHLORIDE 0.9% 1000ML 1,000 ML IV SCH ×2 (06:17→18:57)
[2018-05-28] MEDS: NYSTATIN 100,000 UNITS/GM CRM 30GM TUBE TOP SCH ×2 (09:00→20:56)
[2018-05-28] MEDS: BALSAM PERU/CASTOR OIL 60 GM OINT...G. TP SCH (09:00)
[2018-05-28] MEDS ORDERED: MEROPENEM 500 MG VIAL ONE ×2 (09:10→20:53)
[2018-05-28] MEDS: MIDODRINE HCL 5 MG TABLET PO SCH ×2 (09:11→18:57)
[2018-05-28] MEDS: MEROPENEM 500MG 500 MG in SODIUM CHLORIDE 0.9% 50ML 50 ML IV SCH ×2 (09:30→20:56)
[2018-05-28] MEDS: ATORVASTATIN 20 MG TAB PO SCH (09:30)
[2018-05-28] MEDS: NOREPINEPHRINE INJ 4MG/4ML 8 MG in DEXTROSE 5% 250ML 250 ML IV SCH (13:45)
[2018-05-28] MEDS: DIGOXIN 0.125 MG TAB PO SCH (18:57)
[2018-05-28] MEDS: ASPIRIN 81 MG CHEW TAB PO SCH (18:57)
[2018-05-28] MEDS: ENOXAPARIN SOD INJ 40 MG/0.4 ML SYR SC SCH (18:57)
[2018-05-28] MEDS: AMIODARONE HCL 200 MG TAB PO SCH (18:57)
[2018-05-28] MEDS ORDERED: SODIUM CHLORIDE 0.9% 50ML 50 ML ONE (20:56)
[2018-05-29] VITALS (21 sets, daily range): BP systolic 129–158; BP diastolic 71–106
[2018-05-29] MEDS: AMIODARONE HCL 200 MG TAB PO SCH ×3 (02:11→18:08)
[2018-05-29] MEDS: SODIUM CHLORIDE 0.9% 1000ML 1,000 ML IV SCH ×2 (03:54→14:21)
[2018-05-29 05:10] LABS: BASOPHILS # (AUTO) 0.1 (0.0-0.1); BASOPHILS % 0.6 % (0.0-1.0); EOSINOPHILS # (AUTO) 0.5 (0.0-0.4); EOSINOPHILS % 3.6 % (0.0-6.0); HEMATOCRIT 29.3 % (34.2-44.1); LYMPHOCYTES # (AUTO) 2.2 (1.0-3.2); LYMPHOCYTES % 17.8 % (18.0-39.1); MEAN CORPUSCULAR HEMOGLOBIN 26.8 pg (28-32); MEAN CORPUSCULAR HGB CONC 30.7 g/dL (31-35); MEAN CORPUSCULAR VOLUME 87.2 fL (81-99); MONOCYTES # (AUTO) 0.9 (0.2-0.8); MONOCYTES % 7.2 % (4.4-11.3); NEUTROPHILS # (AUTO) 8.8 (2.1-6.9); NEUTROPHILS % 69.7 % (38.7-80.0); PLATELET COUNT 408 x10e3/uL (140-360); RED BLOOD COUNT 3.36 x10e6/uL (3.6-5.1); RETICULOCYTE % 1.6 % (0.8-2.2)
[2018-05-29 05:38] LABS: % IRON SATURATION 10 % (15-50); ANION GAP 13.1 mmol/L (8-16); BLOOD UREA NITROGEN 6 mg/dL (7-26); BUN/CREATININE RATIO 8 (6-25); CARBON DIOXIDE 22 mmol/L (22-29); CHLORIDE 109 mmol/L (98-107); CREATININE, SERUM 0.72 mg/dL (0.57-1.11); EST GLOMERULAR FILTRATION RATE > 60 ML/MIN (60-); GLUCOSE 94 mg/dL (74-118); IRON 20 ug/dL (50-170); POTASSIUM 3.1 mmol/L (3.5-5.1); SODIUM 141 mmol/L (136-145); TOTAL IRON BINDING CAPACITY 197 ug/dL (261-478); TRANSFERRIN 141 mg/dL (180-382)
--- NOTE | 2018-05-29 07:00 | NUR ---
bedside report recvd. assessment completed and recorded. vss and recorded. at bedside. they verbalize understanding and consent of current poc.
[2018-05-29 07:26] LABS: FOLATE 18.9 ng/mL (7.0-15.4)
[2018-05-29] MEDS: MIDODRINE HCL 5 MG TABLET PO SCH ×2 (08:11→17:00)
[2018-05-29] MEDS ORDERED: MEROPENEM 500 MG VIAL ONE (08:17)
[2018-05-29] MEDS: ATORVASTATIN 20 MG TAB PO SCH (08:19)
[2018-05-29] MEDS ORDERED: SODIUM CHLORIDE 0.9% 50ML 50 ML ONE (08:39)
--- NOTE | 2018-05-29 11:00 | NUR ---
no changes in condition or care.
[2018-05-29] MEDS ORDERED: CEFEPIME HCL 1 GM VIAL IV SCH (11:15)
[2018-05-29] MEDS: NOREPINEPHRINE INJ 4MG/4ML 8 MG in DEXTROSE 5% 250ML 250 ML IV SCH (13:45)
[2018-05-29] MEDS: BALSAM PERU/CASTOR OIL 60 GM OINT...G. TP SCH (14:20)
[2018-05-29] MEDS: NYSTATIN 100,000 UNITS/GM CRM 30GM TUBE TOP SCH ×2 (14:20→21:20)
[2018-05-29] MEDS: CEFEPIME 1GM/NS 0.9% 50 ML 50 ML IV SCH (14:24)
[2018-05-29] MEDS: ASPIRIN 81 MG CHEW TAB PO SCH (17:58)
[2018-05-29] MEDS: DIGOXIN 0.125 MG TAB PO SCH (17:58)
[2018-05-29] MEDS: METRONIDAZOLE 500MG/NS 100ML 100 ML IV SCH ×2 (17:58→23:26)
[2018-05-29] MEDS: ENOXAPARIN SOD INJ 40 MG/0.4 ML SYR SC SCH (17:59)
--- NOTE | 2018-05-29 18:36 | NUR ---
attempted to call report for [phone]
--- NOTE | 2018-05-29 20:21 | NUR ---
PT WAS TRANSFER FROM ICU TO MED-SURG TO ROOM 286. PT ARRIVED ON THE UNIT VIA BED AT 2020. A&OX1-2. PT DENIES CHEST PAIN, SOB, AND N/V. RESPIRATION IS EVEN AND UNLABORED, NO DISTRESS NOTED. BED IN THE LOWEST POSITION, LOCKED, BED ALARM ON, AND CALL LIGHT WITHIN REACH. PT DAUGHTER IS A BEDSIDE. WILL CONTINUE TO MONITOR.
--- NOTE | 2018-05-29 20:33 | NUR ---
Report called to Karissa BEEBE, patient transferred to room 286 per bed. All belongings with patient. Remy catheter at bedside per Dr Randolph request. Daughter accompanied patient to new room.
[2018-05-30] VITALS (7 sets, daily range): BP systolic 138–167; BP diastolic 77–99
[2018-05-30] MEDS: SODIUM CHLORIDE 0.9% 1000ML 1,000 ML IV SCH ×3 (01:27→16:29)
[2018-05-30] MEDS: AMIODARONE HCL 200 MG TAB PO SCH ×3 (01:27→16:29)
[2018-05-30] MEDS: CEFEPIME 1GM/NS 0.9% 50 ML 50 ML IV SCH ×3 (01:27→23:50)
[2018-05-30] MEDS: METRONIDAZOLE 500MG/NS 100ML 100 ML IV SCH ×3 (06:07→21:17)
[2018-05-30 06:27] LABS: BASOPHILS # (AUTO) 0.1 (0.0-0.1); BASOPHILS % 0.5 % (0.0-1.0); EOSINOPHILS # (AUTO) 0.3 (0.0-0.4); EOSINOPHILS % 2.7 % (0.0-6.0); HEMATOCRIT 29.4 % (34.2-44.1); HEMOGLOBIN 9.3 g/dL (12.0-16.0); LYMPHOCYTES # (AUTO) 1.8 (1.0-3.2); LYMPHOCYTES % 14.4 % (18.0-39.1); MEAN CORPUSCULAR HGB CONC 31.6 g/dL (31-35); MEAN CORPUSCULAR VOLUME 85.5 fL (81-99); MONOCYTES # (AUTO) 0.8 (0.2-0.8); MONOCYTES % 6.8 % (4.4-11.3); NEUTROPHILS # (AUTO) 9.2 (2.1-6.9); NEUTROPHILS % 74.6 % (38.7-80.0); PLATELET COUNT 421 x10e3/uL (140-360); RED BLOOD COUNT 3.44 x10e6/uL (3.6-5.1); RED CELL DISTRIBUTION WIDTH 15.1 % (11.7-14.4)
[2018-05-30 07:39] LABS: ANION GAP 13.2 mmol/L (8-16); BLOOD UREA NITROGEN 5 mg/dL (7-26); BUN/CREATININE RATIO 7 (6-25); CALCIUM 8.3 mg/dL (8.4-10.2); CARBON DIOXIDE 22 mmol/L (22-29); CHLORIDE 107 mmol/L (98-107); CREATININE, SERUM 0.69 mg/dL (0.57-1.11); EST GLOMERULAR FILTRATION RATE > 60 ML/MIN (60-); GLUCOSE 86 mg/dL (74-118); POTASSIUM 3.2 mmol/L (3.5-5.1); SODIUM 139 mmol/L (136-145)
--- NOTE | 2018-05-30 08:20 | NUR ---
Pt received resting in bed with at bedside. Pt alert and oriented x3 with left Hemiparesis. Pt turned and repositioned q2hrs. All meds given as ordered. Emotional support given. Fall precautions maintained. Will monitor
[2018-05-30] MEDS: MIDODRINE HCL 5 MG TABLET PO SCH ×2 (08:27→16:29)
[2018-05-30] MEDS: NYSTATIN 100,000 UNITS/GM CRM 30GM TUBE TOP SCH ×2 (08:27→22:30)
[2018-05-30] MEDS: BALSAM PERU/CASTOR OIL 60 GM OINT...G. TP SCH (08:27)
[2018-05-30] MEDS: NYSTATIN 15 GM POWDER UD BTL TOP SCH ×2 (10:28→22:30)
[2018-05-30] MEDS ORDERED: POTASSIUM CHLORIDE 20 MEQ TAB CR PO STA (11:03)
[2018-05-30] MEDS: DIGOXIN 0.125 MG TAB PO SCH (16:29)
[2018-05-30] MEDS: ASPIRIN 81 MG CHEW TAB PO SCH (16:29)
[2018-05-30] MEDS: ENOXAPARIN SOD INJ 40 MG/0.4 ML SYR SC SCH (16:29)
--- NOTE | 2018-05-30 18:00 | History and Physical ---
CHIEF COMPLAINT: Ms. Loredo is an elderly and complex 73-year-old woman, who was brought to the emergency room with a complaint of fever and chills. HISTORY OF PRESENT ILLNESS: The patient has an indwelling suprapubic catheter due to neurogenic bladder and has had multiple recurring urinary tract infections. PAST MEDICAL HISTORY: Significant for repeated hospitalizations at [facility], most recently in January and February of 2018 for similar problems. She has had previous cerebrovascular accident with left hemiparesis. She had tissue aortic valve replacement, remote. HOME MEDICATIONS: For recent home medications, please see the chart. SOCIAL HISTORY: She lives at home. PHYSICAL EXAMINATION: At this time: GENERAL: An elderly white woman, who is alert and responsive. VITAL SIGNS: Temperature 99.3, pulse 103 and irregular, and blood pressure 93/52. HEAD, EYES, EARS, NOSE, AND THROAT: Unremarkable. THORAX: Healed midline sternotomy. HEART: Sounds S1 and S2 are equal with slightly irregular. No distinct murmur. LUNGS: Relatively clear. ABDOMEN: Protuberant. There is suprapubic cathter. EXTREMITIES: No cyanosis, clubbing, or edema. NEURO: Suggest left hemiparesis. INITIAL LABORATORY STUDIES: BUN 23, creatinine 1.2. White count 38.3 thousand and hemoglobin 11.5. ASSESSMENT: 1. Probable urosepsis. 2. Suprapubic catheter, chronic. 3. Urinary tract infection. 4. Tissue aortic valve. PLAN: The patient will receive broad spectrum antibiotic coverage and fluids and we will check echocardiogram to reassess valve function. Further management based on clinical course. MD ALLI Bal/IGGY /[id number] cc: MD Michele Goldman MD
--- NOTE | 2018-05-30 19:15 | NUR ---
patient recieved awake, alert, lying quietly in bed. no c/o pain noted. ivf continue to infuse without difficulty. patient turned and repositioned for comfort. pm assessment complete. daughter noted at the bedside. patient/daughter instructed to call for assistance when needed.
[2018-05-30] MEDS: ATORVASTATIN 20 MG TAB PO SCH (21:00)
--- NOTE | 2018-05-30 22:38 | NUR ---
report on this patient given to Sam Ha RN at this time. Sam Ha RN taking over care of this patient.
[2018-05-31] VITALS (8 sets, daily range): BP systolic 128–169; BP diastolic 63–99
[2018-05-31] MEDS: AMIODARONE HCL 200 MG TAB PO SCH ×2 (02:00→08:49)
[2018-05-31] MEDS: SODIUM CHLORIDE 0.9% 1000ML 1,000 ML IV SCH ×2 (03:10→13:10)
[2018-05-31] MEDS: METRONIDAZOLE 500MG/NS 100ML 100 ML IV SCH ×3 (06:00→21:02)
--- NOTE | 2018-05-31 06:41 | NUR ---
PT RESTING PT HAD BATH AND CHANGE THE DRESSING AT THE SACRUM.CALL SNYDER WITH IN REACH
--- NOTE | 2018-05-31 08:45 | NUR ---
Pt received resting in bed with at bedside. All meds given as ordered. Emotional support given. Will monitor
[2018-05-31] MEDS: BALSAM PERU/CASTOR OIL 60 GM OINT...G. TP SCH (08:49)
[2018-05-31] MEDS: MIDODRINE HCL 5 MG TABLET PO SCH ×2 (08:49→16:51)
[2018-05-31] MEDS: NYSTATIN 15 GM POWDER UD BTL TOP SCH ×2 (08:49→23:50)
[2018-05-31] MEDS: NYSTATIN 100,000 UNITS/GM CRM 30GM TUBE TOP SCH ×2 (08:49→23:50)
[2018-05-31] MEDS: CEFEPIME 1GM/NS 0.9% 50 ML 50 ML IV SCH ×2 (12:37→23:16)
[2018-05-31] MEDS: DIGOXIN 0.125 MG TAB PO SCH (16:50)
[2018-05-31] MEDS: ASPIRIN 81 MG CHEW TAB PO SCH (16:50)
[2018-05-31] MEDS: ENOXAPARIN SOD INJ 40 MG/0.4 ML SYR SC SCH (16:51)
--- NOTE | 2018-05-31 19:00 | NUR ---
patient received awake, alert, lying quietly in bed. no c/o pain noted. ivf continue to infuse without difficulty. dressing to right chest, chest tube site remains d/i. pm assessment complete. patient instructed to call for assistance when needed. Addendum: 05/31/18 at 1920 by Stephanie Ryder RN wrong patient
--- NOTE | 2018-05-31 19:00 | NUR ---
patient received awake, alert, lying quietly in bed. no c/o pain noted. ivf continue to infuse without difficulty. patient turned and repositioned for comfort. pm assessment complete. bed low, side rails up x 3, bed alarm on for safety, call linares placed within reach. patient instructed to call for assistance when needed.
[2018-05-31] MEDS: ATORVASTATIN 20 MG TAB PO SCH (21:00)
[2018-06-01] VITALS (8 sets, daily range): BP systolic 139–174; BP diastolic 75–99
--- NOTE | 2018-06-01 | NUR ---
patient appears to be resting quietly. ivf continue to infuse without difficulty. no c/o pain noted at this time.
[2018-06-01] MEDS: SODIUM CHLORIDE 0.9% 1000ML 1,000 ML IV SCH ×2 (00:22→11:55)
[2018-06-01] MEDS: METRONIDAZOLE 500MG/NS 100ML 100 ML IV SCH ×3 (05:22→21:39)
--- NOTE | 2018-06-01 05:24 | NUR ---
bath given and skin care provided at this time. no c/o pain noted at this time.
--- NOTE | 2018-06-01 07:20 | NUR ---
PATIENT IN BED RESTING WITH NO RESPIRATORY DISTRESS. SUPRAPUBIC CATHETER WITH DRESSING INTACT, DRAINING YELLOW URINE. BED IN LOWER POSITION, CALL LIGHT AT REACH. FAMILY AT BED SIDE.
[2018-06-01] MEDS: MIDODRINE HCL 5 MG TABLET PO SCH ×2 (09:00→17:00)
[2018-06-01] MEDS: AMIODARONE HCL 200 MG TAB PO SCH (09:19)
[2018-06-01] MEDS: BALSAM PERU/CASTOR OIL 60 GM OINT...G. TP SCH (09:23)
[2018-06-01] MEDS: NYSTATIN 15 GM POWDER UD BTL TOP SCH ×2 (09:23→21:00)
[2018-06-01] MEDS: NYSTATIN 100,000 UNITS/GM CRM 30GM TUBE TOP SCH (09:23)
--- NOTE | 2018-06-01 09:29 | NUR ---
CM SPOKE TO PATIENT AT BEDSIDE REGARDING IMM LETTER. IMM LETTER GIVEN WITH EXPLANATION BASED ON ANTICIPATED DISCHARGE DATE WITHIN 48 HOURS. ORIGINAL SIGNED BY PATIENT. COPY OF ORIGINAL PLACED IN CHART; COPY OF ORIGINAL DOCUMENT GIVEN TO PATIENT AT BEDSIDE AND PLACED IN CARE TRANSITION FOLDER. CM CONTACT INFORMATION GIVEN TO PATIENT FOR ANY NEEDS OR CONCERNS. PATIENT WITH NO FURTHER QUESTIONS.
--- NOTE | 2018-06-01 11:36 | NUR ---
PATIENT ASSISTED WITH SHOWER, LINENS CHANGED. IN BED WITH CALL LIGHT AT REACH. Addendum: 06/01/18 at 1138 by Kera Burns RN WRONG PATIENT
--- NOTE | 2018-06-01 11:39 | NUR ---
PATIENT EXERCISING IN BED WITH PHYSICAL THERAPY, NO DISTRESS NOTED. WILL CONTINUE TO MONITOR.
[2018-06-01] MEDS: CEFEPIME 1GM/NS 0.9% 50 ML 50 ML IV SCH ×2 (11:55→23:20)
--- NOTE | 2018-06-01 14:20 | NUR ---
WOUND CARE CONSULTATION: FOLLOW UP Patient admitted from home to ER for Sepsis, UTI, AMS HX: - Dementia, SPC, HTN, Incontinence, CVA, COPD, Left Hemiparesis, Chronic A-Fib, C-Diff, Non-Healing Ulcers to Sacro-gluteal area since Jan 2018. - Stage II Pressure Ulcers Present on Admission. - Left Sided Hemiparesis. PATIENT VISIT: - Chuy Score 12 - Moderate PUP Active - Alternating Pressure Mattress in Place - Assessment Performed - Bilateral Heels -No pressure ulcers identified. Bilateral Prevalon boots in place. - SPC site intact. at bedside states catheter changed today No Drainage, No Redness, No excoriation Draining yellow clear urine. - Abdominal Folds- bilaterally appear to be in healing stages. [place] epithelialization at periwound. Non draining. - Right Groin - Nystatin cream on. Wound healing. 1 cm smaller than last time. Not draining. No redness to periwound. Stable. - Left Groin - Dry and Intact. No rash. Moisture being managed well. Nystatin cream on. - Bilateral Gluteal- Blanchable Erythema to Sacral and Gluteal areas, Irregular shaped. Note- that patient was suffering from C-Diff in the past and had incontinence related dermatitis as a result. - Education at bedside with and home health care assistant with focus on moisture management techniques and pressure relief interventions. IMPRESSION: 1.Right Sacro-gluteal - Stage II - PU - POA - HEALED 2. Left Sacro-gluteal - Stage II - PU - POA - HEALED 3. Bilateral Abdominal Fold Ulcers - Moisture Related Dermatitis. RECOMMENDATION: Continue Current Treatment Plan and can continue to use plan for maintenance at home. 1.Right Sacro-gluteal - Stage II - PU - POA - Cleanse wound with Normal Saline and 4x4 Gauze. - Apply Venelex Ointment and Cover with Allevyn Sacrum foam dressing Daily and PRN Soiling. 2. Left Sacro-gluteal - Stage II - PU - POA - Cleanse wound with Normal Saline and 4x4 Gauze. - Apply Venelex Ointment and Cover with Allevyn Sacrum foam dressing Daily and PRN Soiling. 3. Bilateral Abdominal Fold Ulcers - Moisture Related - - Cleanse with Mild Soap and Water and Pat Dry Thoroughly - Apply Nystatin Cream q12H and PRN Soiling. 4. Continue Alternating Pressure Air Mattress 5. Continue Moderate PUP Protocol 6. Continue Bilateral Heel Protectors and Offloading with Pillows. 7. Continue to turn and reposition q2h. Addendum: 06/01/18 at 1429 by Vlad Avila RN Amended: Links added.
--- NOTE | 2018-06-01 15:54 | NUR ---
PATIENT IN BED WITH HEAD OF BED ELEVATED TALKING TO FAMILY MEMBER VISITING. IV FLUID INFUSING ORDERED. BED IN LOWER POSITION, CALL LIGHT AT REACH.
--- NOTE | 2018-06-01 16:42 | NUR ---
Nutrition Intervention Note RD Recommendation(s) for Physician: -Continue cardiac diet as ordered -Rec MVi w/minerals and vitamin C to support wound healing -Rec [place] BID for wound healing Plan of Care: RD following, monitoring for tolerance and adequacy, ONS rec Nutrition reason for involvement: Follow up RD Assessment 06/01 Pt was discussed during rounds. Currently on IV abx and IVF. Stage II sacrum wound, wound care following. Visited pt in the room. Caregiver presented on bedside to provide hx due to dementia. Per caregiver, pt has had good appetite with 50-75% meal intake. No nausea or vomiting reported. Tolerating GI soft foods and liquids. Will continue to monitor and follow. 05/25 Chart reviewed. 73yo F, who was admitted for sepsis due to UTI. Pt was discussed during AM rounds. Currently on abx. Wound care following. Visited pt in the room. Caregiver presented on bedside to provide hx due to dementia. Per caregiver, pt has had good appetite with adequate meal intake PODIATRIC AIDE. Per caregiver, pt has been drinking her liquid with thickener, due to hx of dysphagia. No chewing difficulty noted. No GI complains noted today. RD rec additional protein and MVi for wound healing. Will continue to monitor and follow. Principal Problems/Diagnoses: sepsis, UTI, AMS PMH: Dementia, SPC, HTN, Incontinence, CVA, COPD, Left Hemiparesis, Chronic A-Fib, C-Diff, Non-Healing Ulcers to Sacro-gluteal area since Jan 2018. GI: abdomen soft, flat, non-tender, LBM 06/01 Skin: stage II sacro-gluteal PU Labs: (05/30) K 3.2 L, BUN 5 L, Ca 8.3 L (05/25) K 3.3 L Meds: abx, NaCl Ht: 65in Wt: 163lb BMI: 27.1kg/m2 IBW: 125lb Malnutrition Evaluation (05/25/2018) The patient does not meet criteria for a specified degree of malnutrition at this time. Will re-evaluate at follow-up as appropriate. Nutrition Prescription (Diet Order): cardiac diet Estimated Nutritional Needs: Calories: 1480 1850kcal (20-25kcal/kg/d) Weight used: current BW Protein: 89 -148g (1.2-2g/kg/d) Weight used: current BW Diet Adequacy: Meeting calorie needs, Not meeting protein needs Diet Education Needs Assessment: Diet education indicated, but patient not appropriate for education at this time. Nutrition Care Level: low Nutrition Diagnosis: Increased protein needs related to altered skin integrity as evidenced by pressure ulcer stage II. Goal: Patient will meet 75-100% of estimated needs by follow up Progress: Goal met Interventions: Mineral-modified diet, Commercial food Monitoring/Evaluation: Total energy intake, Total protein intake, Modified diet, supplement, Weight change Signed: Deb Cruz MS, RD, LD
[2018-06-01] MEDS: ASPIRIN 81 MG CHEW TAB PO SCH (17:25)
[2018-06-01] MEDS: DIGOXIN 0.125 MG TAB PO SCH (17:26)
[2018-06-01] MEDS: ENOXAPARIN SOD INJ 40 MG/0.4 ML SYR SC SCH (17:26)
--- NOTE | 2018-06-01 18:56 | NUR ---
patient received awake, alert, lying quietly in bed. no c/o pain noted. ivf continue to infuse without difficulty. patient turned and repositioned for comfort. pm assessment complete. family noted at the bedside. patient/family instructed to call for assistance when needed.
[2018-06-01] MEDS: ATORVASTATIN 20 MG TAB PO SCH (21:00)
[2018-06-02 00:07] VITALS: BP 155/88
[2018-06-02] MEDS: SODIUM CHLORIDE 0.9% 1000ML 1,000 ML IV SCH (01:10)
[2018-06-02 04:26] VITALS: BP 159/82
[2018-06-02] MEDS: METRONIDAZOLE 500MG/NS 100ML 100 ML IV SCH (05:23)
[2018-06-02 07:30] VITALS: BP 171/76
--- NOTE | 2018-06-02 07:30 | NUR ---
PATIENT IN BED RESTING WITH EYES CLOSED, NO RESPIRATORY DISTRESS OBSERVED. BAILEY IN PLACE TO FEET, SUPRAPUBIC CATHETER WITH YELLOW URINE. BED IN LOWER POSITION, CALL LIGHT AT REACH.
[2018-06-02 07:44] VITALS: BP 171/76
[2018-06-02] MEDS: MIDODRINE HCL 5 MG TABLET PO SCH (09:00)
[2018-06-02] MEDS: AMIODARONE HCL 200 MG TAB PO SCH (09:16)
[2018-06-02] MEDS: NYSTATIN 15 GM POWDER UD BTL TOP SCH (09:16)
[2018-06-02] MEDS: BALSAM PERU/CASTOR OIL 60 GM OINT...G. TP SCH (09:16)
[2018-06-02] MEDS ORDERED: AMIODARONE HCL200 MG PO (11:14)
[2018-06-02] MEDS ORDERED: LEVAQUIN500 MG PO (11:14)
[2018-06-02 11:21] VITALS: BP 162/81
--- NOTE | 2018-06-02 12:15 | NUR ---
PATIENT DISCHARGED HOME. DISCHARGE INSTRUCTIONS, PRESCRIPTIONS, AND FOLLOW UP GIVEN TO PATIENT AND ,THEY VERBALIZED UNDERSTANDING. RIGHT IJ TRIPLE LUMEN REMOVED WITH TIP INTACT, PRESSURE APPLIED FOR 5 MINUTES. ALL PERSONAL ITEMS TAKEN WITH PATIENT. LEFT UNIT PER WHEEL CHAIR TO FRONT LOBBY IN STABLE CONDITION.
--- NOTE | 2018-06-03 05:22 | Discharge Summary ---
HISTORY OF PRESENT ILLNESS: Ms. Loredo is a very complex debilitated 73-year-old woman with previous stroke, who was admitted on the with the complaint of fever and chills, felt to be urosepsis secondary to indwelling suprapubic catheter. HOSPITAL COURSE: Initial evaluation showed urinary tract infection. She is known to have some decubiti on her buttock area. Wound care was initiated. She was given broad-spectrum antibiotics. The cultures grew pseudomonas. Echocardiogram showed good left ventricular function, EF 55%-60% with trace to mild aortic insufficiency of her tissue aortic valve. She had some episodes of atrial fibrillation, was loaded with amiodarone with conversion to sinus rhythm. Her suprapubic catheter was changed by Dr. Manzo on Monday, the at bedside. Today, she is afebrile and comfortable without complaint. She is eating mechanically soft diet. Cultures grew pseudomonas from urine culture. Blood cultures are negative. She is discharged to home today to continue her home medications and to add Levaquin 500 mg daily for 10 days and amiodarone 200 mg tablets, two tabs daily for 90 days. DISCHARGE DIAGNOSES: 1. Urosepsis, resolved. 2. Atrial fibrillation, resolved. 3. Anemia. 4. Decubiti. FOLLOWUP: She will follow up in the [facility]. She will follow up with Dr. Manzo in his office, and will be seen in my office in 3-4 weeks for atrial fibrillation. MD ALLI Bal/IGGY /[id number] cc: MD Andres Ansari
== END 2018-06-02 12:14 | disposition home or self-care (01) | DRG 698 ==
LOC: ER 08:33 → ERHOLD 12:42 → ICU 15:52 → MED/SURG3 05-29 20:36
PROVIDERS: ADMIT Internal Medicine Cardiovascular Disease; ATTEND Internal Medicine Cardiovascular Disease
PROC: 02HV33Z Insertion of Infusion Device into Superior Vena Cava, Percutaneous Approach (ICD-10-PCS; principal; 2018-05-25)
DX: T83.510A Infection and inflammatory reaction due to cystostomy catheter, initial encounter (principal); A41.9 Sepsis, unspecified organism; F05 Delirium due to known physiological condition; I69.354 Hemiplegia and hemiparesis following cerebral infarction affecting left non-dominant side; I48.91 Unspecified atrial fibrillation; D64.9 Anemia, unspecified; F03.90 Unspecified dementia, unspecified severity, without behavioral disturbance, psychotic disturbance, mood disturbance, and anxiety; L89.152 Pressure ulcer of sacral region, stage 2; Z79.01 Long term (current) use of anticoagulants; Z95.2 Presence of prosthetic heart valve
CPT/HCPCS: 36415; 36555; 71045; 80048; 80053; 81001; 82607; 82746; 83540; 83605; 83735; 84100; 84443; 84466; 84484; 85025; 85045; 87040; 87086; 87186; 93005; 93306; 96361; 97139; 99284; J0692; J1200; J1650; J2185; J3260; J3370; J3475; J7030; J7050

== ENCOUNTER 2018-07-06 13:54 | Outpatient (RCR) | payer MEDICARE ==
[~2018-07-06 13:54] MED LIST changes: +AMIODARONE HCL200 MG PO; +ATORVASTATIN CA20 MG PO; +LEVAQUIN500 MG PO; +MELATONIN3 MG PO
[2018-07-06] MEDS ORDERED: CLOTRIMAZOLE/BETAMETHASONE 45 GM CR TP ONE (18:12)
== END 2018-07-08 ==
LOC: WCC 13:54
PROVIDERS: ATTEND Internal Medicine Infectious Disease
DX: L08.89 Other specified local infections of the skin and subcutaneous tissue (principal); L89.311 Pressure ulcer of right buttock, stage 1; L89.41 Pressure ulcer of contiguous site of back, buttock and hip, stage 1; D64.9 Anemia, unspecified; F03.90 Unspecified dementia, unspecified severity, without behavioral disturbance, psychotic disturbance, mood disturbance, and anxiety; I10 Essential (primary) hypertension; I48.91 Unspecified atrial fibrillation; I69.354 Hemiplegia and hemiparesis following cerebral infarction affecting left non-dominant side; J44.9 Chronic obstructive pulmonary disease, unspecified; R32 Unspecified urinary incontinence; Z74.01 Bed confinement status

== ENCOUNTER 2018-07-27 10:44 | Outpatient (RCR) | payer MEDICARE ==
[2018-07-27] MEDS ORDERED: COLLAGENASE OINTMENT 30 GM TUBE ONE (16:51)
[2018-07-27] MEDS ORDERED: LIDOCAINE/PRILOCAINE 2.5-2.5% KIT ONE (16:51)
[2018-07-27] MEDS ORDERED: TRYPSIN/BALSAM PERU/CASTOR OIL ONE (16:51)
== END 2018-08-07 ==
LOC: WCC 10:44
PROVIDERS: ATTEND Internal Medicine Infectious Disease
DX: L89.312 Pressure ulcer of right buttock, stage 2 (principal); L89.45 Pressure ulcer of contiguous site of back, buttock and hip, unstageable; L08.89 Other specified local infections of the skin and subcutaneous tissue; I69.354 Hemiplegia and hemiparesis following cerebral infarction affecting left non-dominant side; I10 Essential (primary) hypertension; I48.91 Unspecified atrial fibrillation; D64.9 Anemia, unspecified; F03.90 Unspecified dementia, unspecified severity, without behavioral disturbance, psychotic disturbance, mood disturbance, and anxiety; J44.9 Chronic obstructive pulmonary disease, unspecified; R32 Unspecified urinary incontinence; Z74.01 Bed confinement status

== ENCOUNTER → 2018-09-07 | Outpatient (RCR) | payer MEDICARE ==
[~2018-09-07] MED LIST changes: +COLLAGENASE OINTMENT 30 GM TUBE ONE; +LIDOCAINE/PRILOCAINE 2.5-2.5% KIT ONE; +TRYPSIN/BALSAM PERU/CASTOR OIL ONE
== END ==
LOC: WCC 08-10 14:48
PROVIDERS: ATTEND Internal Medicine Infectious Disease
DX: L89.322 Pressure ulcer of left buttock, stage 2 (principal); L89.312 Pressure ulcer of right buttock, stage 2; L89.45 Pressure ulcer of contiguous site of back, buttock and hip, unstageable; L08.89 Other specified local infections of the skin and subcutaneous tissue; F03.90 Unspecified dementia, unspecified severity, without behavioral disturbance, psychotic disturbance, mood disturbance, and anxiety; I10 Essential (primary) hypertension; I69.354 Hemiplegia and hemiparesis following cerebral infarction affecting left non-dominant side; D64.9 Anemia, unspecified; I48.91 Unspecified atrial fibrillation; J44.9 Chronic obstructive pulmonary disease, unspecified; R32 Unspecified urinary incontinence; Z74.01 Bed confinement status

== ENCOUNTER 2018-09-10 14:57 | Outpatient (RCR) | payer MEDICARE ==
[~2018-09-10 14:57] MED LIST changes: -COLLAGENASE OINTMENT 30 GM TUBE ONE; -LIDOCAINE/PRILOCAINE 2.5-2.5% KIT ONE; -TRYPSIN/BALSAM PERU/CASTOR OIL ONE
[2018-09-10] MEDS ORDERED: LIDOCAINE VISC 2% SOLN 15 ML UDC ONE (19:13)
[2018-09-10] MEDS ORDERED: COLLAGENASE OINTMENT 30 GM TUBE ONE (19:13)
[2018-10-02] MEDS ORDERED: FENTANYL CITRATE/PF 100MCG/2 ML INJ ONE (10:09)
== END 2018-10-07 ==
LOC: WCC 14:57
PROVIDERS: ATTEND Internal Medicine Infectious Disease
DX: L08.89 Other specified local infections of the skin and subcutaneous tissue (principal); L89.150 Pressure ulcer of sacral region, unstageable; F03.90 Unspecified dementia, unspecified severity, without behavioral disturbance, psychotic disturbance, mood disturbance, and anxiety; I69.354 Hemiplegia and hemiparesis following cerebral infarction affecting left non-dominant side; I10 Essential (primary) hypertension; D64.9 Anemia, unspecified; I48.91 Unspecified atrial fibrillation; R32 Unspecified urinary incontinence; J44.9 Chronic obstructive pulmonary disease, unspecified; Z74.01 Bed confinement status
CPT/HCPCS: J3010

== ENCOUNTER 2018-09-27 13:10 | Inpatient (IN) | payer MEDICARE ==
[~2018-09-27] VITALS: Ht 165.1 cm; Wt 72.6 kg
--- OUTSIDE RECORDS SUMMARY | 2018-09-27 13:14 | XMS REPORT | Clinical Summary ---
Author Author [facility]LEX [facility] Address Unknown Phone Unavailable Care Team Providers Care Paint Stripper Name Role Phone Andres New PCP Allergies [...] Lot Implanted Type Area Manufactur er 06/02/2018 [id number] / [id number] / Valve,Mitral Epic Stented Porcine Valves N/A: Heart ST ALMA DELIA 27mm - [id number] MEDICAL Implanted: Qty: 1 on 01/15/2015 by Eitan Burris MD Explanted: Results Not on fileafter 09/26/2017 Insurance Payer Benefit Subscriber ID Type Phone Address Plan / Group MEDICARE MEDICARE A xxxxxxxxxx Medicare B MCR SUPPLEMENT/INDIVIDUAL AARP/UNITE xxxxxxxxxxx Medigap D HEALTHCARE Advance Directives For more information, please contact: [address] [address] Date Inactivated Comments Code Status [...]
[2018-09-27] MEDS ORDERED: AZTREONAM 2GM/NS 100ML 2 GM in AZTREONAM 2GM/NS 100ML 100 ML IV ONE (13:45)
[2018-09-27] MEDS ORDERED: VANCOMYCIN 1GM/NS 250 ML 250 ML IV ONE (13:45)
[2018-09-27 14:13] LABS: BASOPHILS # (AUTO) 0.1 (0.0-0.1); BASOPHILS % 0.4 % (0.0-1.0); EOSINOPHILS # (AUTO) 0.1 (0.0-0.4); EOSINOPHILS % 0.8 % (0.0-6.0); HEMATOCRIT 34.1 % (34.2-44.1); HEMOGLOBIN 10.7 g/dL (12.0-16.0); LYMPHOCYTES # (AUTO) 1.7 (1.0-3.2); LYMPHOCYTES % 10.4 % (18.0-39.1); MEAN CORPUSCULAR HEMOGLOBIN 26.9 pg (28-32); MEAN CORPUSCULAR HGB CONC 31.4 g/dL (31-35); MEAN CORPUSCULAR VOLUME 85.7 fL (81-99); MONOCYTES # (AUTO) 0.9 (0.2-0.8); MONOCYTES % 5.6 % (4.4-11.3); NEUTROPHILS # (AUTO) 13.6 (2.1-6.9); PLATELET COUNT 436 x10e3/uL (140-360); RED BLOOD COUNT 3.98 x10e6/uL (3.6-5.1); RED CELL DISTRIBUTION WIDTH 14.2 % (11.7-14.4)
[2018-09-27 14:25] LABS: INR 1.06; PROTHROMBIN TIME 14.3 seconds (11.9-14.5)
[2018-09-27 14:26] LABS: PARTIAL THROMBOPLASTIN TIME 36.5 seconds (23.8-35.5)
[2018-09-27 14:33] LABS: ALANINE AMINOTRANSFERASE 97 IU/L (0-55); ALBUMIN 2.3 g/dL (3.5-5.0); ALBUMIN/GLOBULIN RATIO 0.4 (0.8-2.0); ALKALINE PHOSPHATASE 74 IU/L (40-150); ANION GAP 16.5 mmol/L (8-16); BLOOD UREA NITROGEN 22 mg/dL (7-26); BUN/CREATININE RATIO 27 (6-25); CALCIUM 9.4 mg/dL (8.4-10.2); CARBON DIOXIDE 28 mmol/L (22-29); CHLORIDE 97 mmol/L (98-107); CREATINE KINASE 53 IU/L (29-168); CREATININE, SERUM 0.81 mg/dL (0.57-1.11); EST GLOMERULAR FILTRATION RATE > 60 ML/MIN (60-); GLUCOSE 116 mg/dL (74-118); MAGNESIUM 1.9 MG/DL (1.3-2.1); POTASSIUM 4.5 mmol/L (3.5-5.1); SODIUM 137 mmol/L (136-145)
[2018-09-27 14:43] LABS: BILIRUBIN,URINE NEGATIVE (NEGATIVE); CLARITY,URINE SL CLOUDY (CLEAR); COLOR,URINE YELLOW (YELLOW); KETONES,URINE NEGATIVE (NEGATIVE); LEUKOCYTE ESTERASE ,URINE LARGE (NEGATIVE); NITRITE,URINE POSITIVE (NEGATIVE); PROTEIN,URINE DIPSTICK 1+ (NEGATIVE); URINE UROBILINOGEN 1 mg/dL (0.2 - 1)
[2018-09-27 15:01] LABS: BACTERIA,URINE MANY /HPF; EPITHELIAL CELLS,URINE FEW /LPF; WBC,URINE (MAN) >50 /HPF (0-5)
--- OUTSIDE RECORDS SUMMARY | 2018-09-27 15:21 | XMS REPORT | Clinical Summary ---
Author Author ALEX [facility] Address Unknown Phone Unavailable Care Team Providers Care Maori Liaison Adviser Name Role Phone Andres New PCP Allergies [...] Lot Implanted Type Area Manufactur er 06/02/2018 [id number] / [id number] / Valve,Mitral Epic Stented Porcine Valves N/A: Heart ST ALMA DELIA 27mm - [id number] MEDICAL Implanted: Qty: 1 on 01/15/2015 by Eitan Burris MD Explanted: Results Not on fileafter 09/26/2017 Insurance Payer Benefit Subscriber ID Type Phone Address Plan / Group MEDICARE MEDICARE A xxxxxxxxxx Medicare B MCR SUPPLEMENT/INDIVIDUAL AARP/UNITE xxxxxxxxxxx Medigap D HEALTHCARE Advance Directives For more information, please contact: [address] [address] Date Inactivated Comments Code Status [...]
--- NOTE | 2018-09-27 15:29 | Diagnostic Imaging Report ---
Examination: Single AP view of the chest. COMPARISON: 05/25/2018 INDICATION: Infected sacral decubitus ulcer DISCUSSION: Lungs are well-inflated and without focal consolidation, pleural effusion, or pneumothorax. Stable cardiomediastinal contour status post median sternotomy. No overt pulmonary edema. No acute osseous abnormality. Posttraumatic deformity of the proximal right humerus. Right upper quadrant surgical clips. Gastric band apparatus projects over the left upper quadrant. IMPRESSION: Postsurgical mediastinum. No acute cardiopulmonary abnormality. Signed by: Dr. Jayme Esparza M.D. on 09/27/2018 3:25 PM
[2018-09-27] MEDS ORDERED: AZTREONAM 2GM/NS 100ML 100 ML IV ONE (15:30)
[2018-09-27] MEDS: FAMOTIDINE 20 MG/2 ML VIAL IV SCH (15:47)
--- NOTE | 2018-09-27 15:50 | NUR ---
RECEIVED PT FROM ER. AAOX2. PT CAME WITH STAGE 4 PRESSURE ULCER ON SACRUM. STAGE 2 ON THE LOWER BACK. MULTIPLE BRUISES AND REDNESS ON THE BACK . WOUND DRESSING COMPLETED. ALLEVYN FOAM PAD APPLIED FOR PROTECTION. PT CAME WITH SUPRAPUBIC CATHETER FROM HOME. HEEL PROTECTORS ON. BED IS AT THE LOWEST POSITION AND LOCKED. PT FAMILY AT BEDSIDE. CALL LIGHT WITH IN EASY REACH. PT DENIES NEEDS AT THIS TIME.
[2018-09-27 16:00] VITALS: BP 108/55
[2018-09-27 16:59] VITALS: BP 108/55
--- NOTE | 2018-09-27 19:00 | NUR ---
BEDSIDE SHIFT REPORT GIVEN TO THE STUCCO MASON RN. PT FAMILY AT BEDSIDE. PT DENIED FURTHER NEEDS.
--- NOTE | 2018-09-27 19:30 | NUR ---
RECEIVED PT AAOX2 AFTER BEDSIDE REPORT. PATIENT WAS ALREADY PRESENT WITH STAGE 4 PRESSURE ULCER ON SACRUM. A STAGE 2 IS PRESENT ON THE LOWER BACK, WELL MULTIPLE BRUISES AND REDNESS ON THE BACK . WOUND DRESSING COMPLETED BY DAY NURSE ALLEVYN FOAM PAD APPLIED FOR PROTECTION. PT CAME WITH SUPRAPUBIC CATHETER FROM HOME. HEEL PROTECTORS ON, BED IS AT THE LOWEST POSITION AND LOCKED, FAMILY AT BEDSIDE, CALL LIGHT WITH IN EASY REACH, WILL CONTINUE TO MONITOR.
--- NOTE | 2018-09-27 19:53 | NUR ---
CALLED DR. BUENO OFFICE REGARDING TELEMETRY FOR THE PT.
[2018-09-27] MEDS ORDERED: ACETAMINOPHEN 325 MG TAB PO PRN (20:00)
[2018-09-27 20:23] VITALS: BP 114/64
[2018-09-27 20:30] VITALS: BP 114/64
[2018-09-27] MEDS: DIVALPROEX SODIUM 250 MG TAB...DR PO SCH (20:30)
[2018-09-27] MEDS: MELATONIN 3 MG TAB PO SCH (20:30)
[2018-09-27] MEDS: MORPHINE SULFATE INJ 4 MG/ML INJ 1ML IV PRN (20:40)
[2018-09-27] MEDS: ONDANSETRON HCL INJ 2MG/ML 2ML 2 MG/ML VIAL IV PRN (20:40)
[2018-09-27] MEDS ORDERED: AZTREONAM 2GM/NS 100ML 2 GM in AZTREONAM 2GM/NS 100ML 100 ML IV SCH (22:00)
[2018-09-27] MEDS: AZTREONAM 2GM/NS 100ML 100 ML IV SCH (23:00)
[2018-09-28 00:01] VITALS: BP 97/62
[2018-09-28] MEDS ORDERED: VANCOMYCIN 750MG/NS 150ML IVPB 150 ML IV SCH (02:00)
[2018-09-28] MEDS: FAMOTIDINE 20 MG/2 ML VIAL IV SCH (02:37)
[2018-09-28] MEDS: ONDANSETRON HCL INJ 2MG/ML 2ML 2 MG/ML VIAL IV PRN (04:56)
[2018-09-28] MEDS: MORPHINE SULFATE INJ 4 MG/ML INJ 1ML IV PRN ×2 (04:56→19:21)
[2018-09-28 04:58] VITALS: BP 102/56
[2018-09-28 05:31] LABS: BASOPHILS # (AUTO) 0.1 (0.0-0.1); BASOPHILS % 0.6 % (0.0-1.0); EOSINOPHILS # (AUTO) 0.3 (0.0-0.4); EOSINOPHILS % 1.8 % (0.0-6.0); HEMATOCRIT 30.9 % (34.2-44.1); HEMOGLOBIN 9.5 g/dL (12.0-16.0); LYMPHOCYTES # (AUTO) 1.5 (1.0-3.2); LYMPHOCYTES % 10.1 % (18.0-39.1); MEAN CORPUSCULAR HEMOGLOBIN 26.5 pg (28-32); MEAN CORPUSCULAR HGB CONC 30.7 g/dL (31-35); MEAN CORPUSCULAR VOLUME 86.3 fL (81-99); NEUTROPHILS # (AUTO) 11.6 (2.1-6.9); NEUTROPHILS % 79.7 % (38.7-80.0); PLATELET COUNT 374 x10e3/uL (140-360); RED BLOOD COUNT 3.58 x10e6/uL (3.6-5.1); RED CELL DISTRIBUTION WIDTH 14.2 % (11.7-14.4)
[2018-09-28 05:41] LABS: ALANINE AMINOTRANSFERASE 86 IU/L (0-55); ALBUMIN/GLOBULIN RATIO 0.4 (0.8-2.0); ALKALINE PHOSPHATASE 68 IU/L (40-150); ANION GAP 12.2 mmol/L (8-16); BLOOD UREA NITROGEN 16 mg/dL (7-26); BUN/CREATININE RATIO 23 (6-25); CALCIUM 8.7 mg/dL (8.4-10.2); CARBON DIOXIDE 26 mmol/L (22-29); CHLORIDE 99 mmol/L (98-107); EST GLOMERULAR FILTRATION RATE > 60 ML/MIN (60-); GLUCOSE 96 mg/dL (74-118); POTASSIUM 4.2 mmol/L (3.5-5.1); SODIUM 133 mmol/L (136-145)
[2018-09-28] MEDS: AZTREONAM 2GM/NS 100ML 100 ML IV SCH ×3 (05:53→22:00)
[2018-09-28 06:42] LABS: CREATINE KINASE MB 2.4 ng/mL (0-5.0)
[2018-09-28 08:00] VITALS: BP 96/52
[2018-09-28] MEDS: LISINOPRIL 10 MG TAB PO SCH (09:00)
[2018-09-28 09:51] VITALS: BP_SYST 96; BP_DIAS 52; BP_DIAS 56
[2018-09-28] MEDS: FAMOTIDINE 20 MG TAB PO SCH (09:51)
[2018-09-28] MEDS: AMIODARONE HCL 200 MG TAB PO SCH (09:51)
[2018-09-28] MEDS ORDERED: ONDANSETRON HCL 4 MG ORAL DISINTEGRATING TAB PO PRN (12:30)
[2018-09-28] MEDS: VANCOMYCIN 1GM/NS 250 ML 250 ML IV SCH (12:30)
--- NOTE | 2018-09-28 12:33 | Consultation ---
DATE OF CONSULTATION: 09/28/2018 REASON FOR CONSULTATION: Consultation requested regarding infected right buttock ulcer. Thank you for this consultation. HISTORY OF PRESENT ILLNESS: This is a 73-year-old female who has multiple medical problems including hemiplegia and hemiparesis following cerebral infarction, atrial fibrillation, and chronic right buttock ulcer. She was initially seen at [facility] wound care clinic for initially a stage I pressure ulcer which has progressed with further breakdown. The patient was referred to plastic surgeon, Dr. Nunez for surgical debridement, but the patient's family noted that there was increased drainage and malodor to the sacral/buttock ulcer when the patient was admitted to the hospital. REVIEW OF SYSTEMS: HEENT: Denies any headaches, visual complaints, sinus congestion, earache, throat pain, or neck pain. RESPIRATORY: No cough or shortness of breath. CARDIOVASCULAR: No chest pain or palpitation. GI: No nausea, vomiting, or diarrhea. : No urinary symptoms. PAST MEDICAL HISTORY: 1. Atrial fibrillation. 2. Hemiplegia. 3. Hemiparesis. 4. Cerebral infarction. 5. Dementia. 6. Hypertension. 7. COPD. 8. Urinary incontinence. PAST SURGICAL HISTORY: 1. Knee replacement. 2. Double mastectomy. 3. Back surgery. 4. Hysterectomy. ALLERGIES: 1. CEFTRIAXONE. 2. LEVOFLOXACIN. 3. MEROPENEM. 4. NITROFURANTOIN. 5. PENICILLIN. MEDICATIONS: Chronic medications are reviewed. FAMILY HISTORY: Noncontributory. SOCIAL HISTORY: History of smoking in the past. Mild to moderate alcohol use. PHYSICAL EXAMINATION: VITAL SIGNS: Temperature of 96.3, pulse 78, respiratory rate 18, and blood pressure 102/56. HEENT: Normocephalic, atraumatic. Extraocular movements not assessed. NECK: Supple. LUNGS: Fair entry bilaterally. Clear to auscultation. CARDIOVASCULAR: Heart sounds, S1, S2. No murmur or gallop. ABDOMEN: Soft, nontender. Normoactive bowel sounds. EXTREMITIES: No cyanosis, clubbing, or edema. Evaluation of the wound revealed right buttock ulcer which is stage III-IV with soft tissue necrosis and surrounding cellulitis. LABORATORY DATA: WBC count 14, hemoglobin 9.5, and platelets 374. BUN 16, creatinine 0.7, and glucose 96. Cultures from the wound are showing Streptococcus species and gram-negative rods. ASSESSMENT: This is a 73-year-old female who has stage III-IV sacral buttock ulcer, which is infected, probable polymicrobial infection. Current cultures are showing Streptococcus and gram-negative rods. RECOMMENDATIONS: Antibiotic treatment with vancomycin and Azactam. Plastic Surgery had been consulted for surgical debridement. We will continue to follow duration of antibiotic treatment to be determined. PICC line to be placed. Consider LTAC evaluation. Thank you, Dr. Veliz, for this consultation. We will follow the patient along with you. German Guerrero MD SR/MODL /[id number] cc: Andre Veliz MD
[2018-09-28] MEDS ORDERED: SODIUM CHLORIDE 0.9% 250ML 250 ML ONE (12:38)
[2018-09-28] MEDS: MIDODRINE 2.5 MG TAB PO SCH ×2 (12:50→18:13)
[2018-09-28] MEDS ORDERED: DIGOXIN 0.125 MG TAB PO ONE (14:30)
[2018-09-28] MEDS: TRAMADOL HCL 50 MG TAB PO PRN (14:41)
--- NOTE | 2018-09-28 16:06 | NUR ---
WOUND CARE NURSE INITIAL CONSULTATION. 73 YEAR OLD FEMALE ADMITTED TO [facility] WITH DX OF DECUBITUS ULCERS. PT IS WELL KNOW FROM OUTPATIENT WOUND CARE CENTER. SPOKE WITH PT'S DAUGHTER WITH CONCERN OF WOUND INFECTION AND MAL ODOR. INSTRUCTED DAUGHTER TO TAKE PT TO THE ER TO BE EVALUATED. PT WAS ADMITTED LAST NIGHT. HEAD TO TOE SKIN ASSESSMENT DONE TODAY. PT PRESENTS WITH A [id number] UNSTAGEABLE PRESSURE ULCER TO SACRUM. 100% NECROTIC AND MALODOR IS NOTED. PERIWOUND PRESENTS WITH NONBLANCHABLE REDNESS AND AREAS OF DTI. ENTIRE AREA MEASURES APPROXIMATELY [id number], 1X1CM DTI IS PRESENT TO LEFT LATERAL ANKLE AND UPPER BACK, WELL A 4X3X0.2CM UNSTAGEABLE PRESSURE ULCER TO LEFT SCAPULA. THERE ARE NO OTHER AREAS OF CONCERN AT THIS TIME. DR. MCQUEEN ( PT'S WOUND CARE DOCTOR) SAW THE PT AND IS MANAGING IV ABX. PICC PLACEMENT PENDING. LABS: WBC: 14.53 ALB: 2.0 BLOOD CX RESULTS ARE PENDING. SACRAL WOUND CX RESULTS ARE PENDING. SUPRAPUBIC CATHETER IN PLACE. RECOMMENDATIONS: PT WILL BENEFIT FROM SURGICAL DEBRIDEMENT AND POSSIBLE FLAP CLOSURE PREVIOUSLY PLANNED IN THE OUTPATIENT WOUND CARE CENTER BY DR. TORRES. DR. TORRES CONSULTED. CONTINUE WITH FOAM DRESSING TO LEFT LATERAL ANKLE AND UPPER BACK. CHANGE DRESSING DAILY. CLEAN LEFT SCAPULA AND SACRUM WITH NS, APPLY BETADINE WET TO DRY AND COVER WITH ABD PAD. CHANGE DRESSING DAILY. CONTINUE WITH ALTERNATING LOW AIR LOSS MATTRESS CONTINUE WITH BILATERAL HEEL PROTECTORS. TURN PT EVERY TWO HOURS AND PRN. THANKS DR. BUENO FOR THIS CONSULTATION. Addendum: 09/28/18 at 1624 by Kady Guevara RN Amended: Links added.
[2018-09-28] MEDS: ASPIRIN 81 MG CHEW TAB PO SCH (18:12)
[2018-09-28] MEDS: HYDROXYZINE HCL 25 MG TAB PO SCH (18:12)
[2018-09-28] MEDS: DOCUSATE SODIUM 100 MG CAP PO SCH (18:13)
[2018-09-28] MEDS: SOLIFENACIN SUCCINATE 5 MG TAB PO SCH (18:13)
[2018-09-28] MEDS: ALPRAZOLAM 0.5 MG TAB PO SCH (18:13)
--- NOTE | 2018-09-28 18:34 | NUR ---
pt not a candidate for RUE picc unable to thread to svc nurse vickie gamez and informed . pt has stroke to left side cannot place line on that side. recommend central line
--- NOTE | 2018-09-28 19:15 | NUR ---
PT VISITED IN ROOM DURING NURSING ROUNDS. PT AAOX2. PT WITH STAGE 4 PRESSURE ULCER ON SACRUM. STAGE 2 ON THE LOWER BACK. MULTIPLE BRUISES AND REDNESS ON THE BACK . WOUND DRESSING COMPLETED. ALLEVYN FOAM PAD WASAPPLIED FOR PROTECTION. PT CAME WITH SUPRAPUBIC CATHETER FROM HOME. HEEL PROTECTORS ON. BED IS AT THE LOWEST POSITION AND LOCKED. PT FAMILY AT BEDSIDE. CALL LIGHT WITHIN EASY REACH. PT BEING TURNED Q2HR. PT DENIES NEEDS AT THIS TIME.
--- NOTE | 2018-09-28 20:29 | NUR ---
Called consult to Dr. Nunez at this time. Spoke with eKeley with answering service. She stated he is out until Monday.
[2018-09-28] MEDS: MELATONIN 3 MG TAB PO SCH (22:00)
[2018-09-28] MEDS: DIVALPROEX SODIUM 250 MG TAB...DR PO SCH (22:00)
[2018-09-28 22:30] VITALS: BP 97/56
[2018-09-28 22:53] VITALS: BP 163/63
[2018-09-29 05:27] VITALS: BP 95/55
[2018-09-29 06:00] LABS: BASOPHILS # (AUTO) 0.1 (0.0-0.1); BASOPHILS % 0.9 % (0.0-1.0); EOSINOPHILS # (AUTO) 0.6 (0.0-0.4); HEMATOCRIT 30.5 % (34.2-44.1); HEMOGLOBIN 9.4 g/dL (12.0-16.0); LYMPHOCYTES # (AUTO) 1.6 (1.0-3.2); LYMPHOCYTES % 14.5 % (18.0-39.1); MEAN CORPUSCULAR HEMOGLOBIN 26.8 pg (28-32); MEAN CORPUSCULAR HGB CONC 30.8 g/dL (31-35); MEAN CORPUSCULAR VOLUME 86.9 fL (81-99); MONOCYTES % 8.6 % (4.4-11.3); NEUTROPHILS # (AUTO) 7.9 (2.1-6.9); NEUTROPHILS % 70.4 % (38.7-80.0); PLATELET COUNT 359 x10e3/uL (140-360); RED BLOOD COUNT 3.51 x10e6/uL (3.6-5.1); RED CELL DISTRIBUTION WIDTH 14.2 % (11.7-14.4)
[2018-09-29] MEDS: AZTREONAM 2GM/NS 100ML 100 ML IV SCH ×3 (06:18→22:00)
[2018-09-29 06:25] LABS: ANION GAP 12.3 mmol/L (8-16); BLOOD UREA NITROGEN 14 mg/dL (7-26); BUN/CREATININE RATIO 22 (6-25); CALCIUM 8.8 mg/dL (8.4-10.2); CARBON DIOXIDE 26 mmol/L (22-29); CHLORIDE 103 mmol/L (98-107); CREATININE, SERUM 0.64 mg/dL (0.57-1.11); EST GLOMERULAR FILTRATION RATE > 60 ML/MIN (60-); GLUCOSE 80 mg/dL (74-118); POTASSIUM 4.3 mmol/L (3.5-5.1); SODIUM 137 mmol/L (136-145)
[2018-09-29] MEDS: LISINOPRIL 10 MG TAB PO SCH (09:00)
[2018-09-29] MEDS: MIDODRINE 2.5 MG TAB PO SCH ×3 (09:09→18:38)
[2018-09-29] MEDS: TRAMADOL HCL 50 MG TAB PO PRN ×2 (09:09→18:36)
[2018-09-29 09:10] VITALS: BP 96/53
[2018-09-29] MEDS: AMIODARONE HCL 200 MG TAB PO SCH (09:10)
[2018-09-29] MEDS: FAMOTIDINE 20 MG TAB PO SCH (09:10)
[2018-09-29] MEDS: VANCOMYCIN 1GM/NS 250 ML 250 ML IV SCH (11:45)
[2018-09-29 15:55] VITALS: BP 101/63
[2018-09-29 17:00] VITALS: BP 114/61
--- NOTE | 2018-09-29 17:26 | NUR ---
Nutrition Intervention Note RD Recommendation(s) for Physician: -Continue with Cardiac/ texture modified diet -Recommend Multivitamin supplement with Vitamin C, add [place] BID to support wound healing -Ensure Enlive BID with meals per pt request Plan of Care: RD following, monitoring for tolerance and adequacy, ONS recommendation Nutrition reason for involvement: Nutrition Risk Trigger RD Assessment (09/29)73 y/o F, seen at wound care clinic for initially a stage I pressure ulcer now with further breakdown. Patient followed by wound care. Per pt's family needs assistance with eating, reports good PO intake, requesting Ensure . Denies N/V. Patient tolerating texture modified diet. Last bowel movement 09/28. Reviewed old medical records; pt weights about the same as her last admissions. Communicated recommendations with RN. Will continue to monitor and follow. Principal Problems/Diagnoses: Sacral Decubitus Ulcer, Stage 4 and DTI PMH: 1. Atrial fibrillation. 2. Hemiplegia. 3. Hemiparesis. 4. Cerebral infarction. 5. Dementia. 6. Hypertension. 7. COPD. 8. Urinary incontinence GI: Abdomen flat, soft , non-tender. soft-brown. last bowel movement 09/28 Skin: Unstageable pressure ulcer to sacrum. DTI is present to left lateral ankle and upper back, unstageable pressure ulcer to left scapula Labs: (09/29) Reviewed WNL Meds: (09/29) Pepcid Ht: 65 in Wt: 160 lbs BMI: 26.6kg/m2 IBW: 125 lbs Malnutrition Evaluation (09/29) The patient does not meet criteria for a specified degree of malnutrition at this time. Will re-evaluate at follow-up as appropriate. Nutrition Prescription (Diet Order): Cardiac Diet with texture and liquid modifications Estimated Nutritional Needs: Calories: 1480 1850kcal (20-25kcal/kg/d) Weight used: current BW Protein: 89 -148g (1.2-2g/kg/d) Weight used: current BW Diet Adequacy: Meeting calorie needs, not meeting protein needs Diet Education Needs Assessment: Diet education indicated, but patient not appropriate for education at this time. Nutrition Care Level: LOW Nutrition Diagnosis: Increased protein needs, related to altered skin integrity as evidenced by unstageable pressure ulcer to sacrum Goal: Patient will meet 75-100% of estimated needs by follow up Progress: Progressing Interventions: Modified diet, Commercial beverage, Commercial food, Multivitamin/mineral supplement therapy Monitoring/Evaluation: -Total energy intake, Total protein intake, Weight, Modified diet, Liquid supplement Signed: Deb Cruz MS, RD, LD
[2018-09-29] MEDS: DIGOXIN 0.125 MG TAB PO SCH (18:35)
[2018-09-29] MEDS: ALPRAZOLAM 0.5 MG TAB PO SCH (18:37)
[2018-09-29] MEDS: HYDROXYZINE HCL 25 MG TAB PO SCH (18:37)
[2018-09-29] MEDS: ASPIRIN 81 MG CHEW TAB PO SCH (18:37)
[2018-09-29] MEDS: SOLIFENACIN SUCCINATE 5 MG TAB PO SCH (18:37)
[2018-09-29] MEDS: DOCUSATE SODIUM 100 MG CAP PO SCH (18:37)
--- NOTE | 2018-09-29 19:30 | NUR ---
Patient received lying in bed. AAO x 1. Family at bedside. Patient had no complaints of pain. No signs of respiratory distress. Remy catheter draining cloudy yellow urine. Patient assisted to a more comfortable position. Fall precautions implemented. Patient awaiting PICC line placement. Call light within reach.
[2018-09-29 20:00] VITALS: BP 103/50
[2018-09-29] MEDS: MELATONIN 3 MG TAB PO SCH (21:15)
[2018-09-29] MEDS: DIVALPROEX SODIUM 250 MG TAB...DR PO SCH (21:15)
[2018-09-29 21:20] VITALS: BP 103/50
--- NOTE | 2018-09-29 22:06 | NUR ---
evaluated pt at bedside with ABIEL Gomez, pt has large bruise/hematoma to RUE when previous access was attempted, L side is affected by past CVA, flaccid left side, bilateral mastectomy with scars across both breasts and no nipples, not a candidate for picc or midline, pt never stuck, ABEIL Ugalde informed and ordering MD being called for further orders
--- NOTE | 2018-09-29 22:09 | NUR ---
Vascular nurse (Carlene) here for PICC line placement. PICC line was not placed due to patient's past medical history of CVA in left arm, bilateral mastectomy and hematoma in right arm. . Dr. Veliz notified. New order received for IR Consult for "Central Line" placement. Patient's daughter ( Yeny) made aware patient would need to sign a new consent form in the morning.
[2018-09-30] VITALS (8 sets, daily range): BP systolic 101–131; BP diastolic 52–66
[2018-09-30] MEDS: TRAMADOL HCL 50 MG TAB PO PRN (00:36)
[2018-09-30] MEDS: AZTREONAM 2GM/NS 100ML 100 ML IV SCH ×3 (05:13→22:35)
--- NOTE | 2018-09-30 06:17 | NUR ---
Suprapubic dressing changed.
--- NOTE | 2018-09-30 07:10 | NUR ---
Walking rounds done. Shift report given to oncoming nurse for continuity of care.
[2018-09-30] MEDS: FAMOTIDINE 20 MG TAB PO SCH (09:23)
[2018-09-30] MEDS: MIDODRINE 2.5 MG TAB PO SCH ×3 (09:23→18:10)
[2018-09-30] MEDS: AMIODARONE HCL 200 MG TAB PO SCH (09:23)
--- NOTE | 2018-09-30 10:57 | NUR ---
Patient taken to radiology at this time for placement of CVC.
--- NOTE | 2018-09-30 11:02 | NUR ---
CM SPOKE TO PATIENT AND PATIENT AT BEDSIDE REGARDING TRANSFER ORDERS TO [facility]. PATIENT UNABLE TO MAKE DECISIONS FOR SELF. IS POA. CM EXPLAINED DIFFERENCE BETWEEN AUTOMATIC NAILING MACHINE FEEDER ACUTE CARE PLACEMENT AND SHORT TERM ACUTE CARE. PATIENT GIVEN CHOICES FOR AUTOMATIC NAILING MACHINE FEEDER ACUTE CARE FACILITIES. PATIENT CHOSE [facility] IN [place], [place]. CLINICAL SENT TO [facility]. CHOICE LETTER SIGNED BUY AND PLACED IN CHART. PENDING ACCEPTANCE FOR TRANSFER. [facility] Address: [address] [place], [place] [address] Addendum: 09/30/18 at 1131 by Marina Lambert CM [facility] PATIENT OFF UNIT FOR PROCEDURE. CM TO FOLLOW UP AND SEND H&P MONDAY MORNING.
[2018-09-30] MEDS: VANCOMYCIN 1GM/NS 250 ML 250 ML IV SCH (12:43)
[2018-09-30] MEDS: DIGOXIN 0.125 MG TAB PO SCH (14:25)
[2018-09-30] MEDS: MORPHINE SULFATE INJ 4 MG/ML INJ 1ML IV PRN (15:48)
[2018-09-30] MEDS: HYDROXYZINE HCL 25 MG TAB PO SCH (18:10)
[2018-09-30] MEDS: ASPIRIN 81 MG CHEW TAB PO SCH (18:10)
[2018-09-30] MEDS: DOCUSATE SODIUM 100 MG CAP PO SCH (18:10)
[2018-09-30] MEDS: SOLIFENACIN SUCCINATE 5 MG TAB PO SCH (18:10)
[2018-09-30] MEDS: ALPRAZOLAM 0.5 MG TAB PO SCH (18:10)
--- NOTE | 2018-09-30 19:26 | NUR ---
Patient received lying in semi-torres position. AAO x 2. No signs of pain , discomfort or respiratory distress. Suprapubic catheter draining pale clear yellow urine. Wound dressing to sacrum CDI. Bed locked and in lowest position. Bed rails up x 2. Call light within reach.
[2018-09-30] MEDS: MELATONIN 3 MG TAB PO SCH (21:15)
[2018-09-30] MEDS: DIVALPROEX SODIUM 250 MG TAB...DR PO SCH (21:15)
--- NOTE | 2018-09-30 23:05 | NUR ---
IV in right hand infiltrated. Old IV removed with tip intact. New IV inserted in Right forearm 20G. Patient tolerated well. Addendum: 10/01/18 at 0711 by Hailee Muse RN Correction: Above entry for wrong patient.
[2018-10-01] VITALS (8 sets, daily range): BP systolic 96–121; BP diastolic 57–70
[2018-10-01] MEDS: AZTREONAM 2GM/NS 100ML 100 ML IV SCH (05:41)
--- NOTE | 2018-10-01 06:15 | NUR ---
Patient complained of constipation and not having a bowel movement for [address] Jose Alfredo solis. Awaiting call back.
--- NOTE | 2018-10-01 07:00 | NUR ---
Patient resting comfortably. Shift report given to oncoming nurse.
--- NOTE | 2018-10-01 07:00 | NUR ---
RCD PT AT BED PT IS ALERT AND ORIENTED PT RESTING ON BED NO SIGNS OF ANY DISTRESS NOTED IV PATENT FAMILY AT BED SIDE BED LOW AND LOCKED CALL LIGHT IN REACH
--- NOTE | 2018-10-01 07:14 | Diagnostic Imaging Report ---
Date and Time: 09/30/2018 Procedure: Right internal jugular central venous catheter placement nut sheller machine operator: Dr. Esparza Pre-operative diagnosis: Decubitus ulcer, need for intravenous antibiotics Post-operative diagnosis: Decubitus ulcer, need for intravenous antibiotics Conscious Sedation: None Additional Medications: Lidocaine 1% for local anesthesia Fluoroscopy time: 0.5 minutes Dose-area Product: 0.69 Gycm2. Frontal Air Kerma: 2.63 mGy Contrast used: None Estimated blood loss: Minimal Specimens: None Implants: 7 Singaporean 16 cm triple-lumen central venous catheter Blood products administered: None Complications: No immediate DISCUSSION: Informed consent was obtained and documented in the medical record after discussion of risks and benefits. The patient was placed in the supine position on the hospital bed. Preliminary sonographic evaluation confirmed patency of the right internal jugular vein, evidenced by compressibility. The right neck was prepped and draped in the standard sterile fashion. 1% lidocaine was infiltrated into the skin and subcutaneous tissues for local anesthesia. Then under continuous sonographic guidance, an 18-gauge singlewall needle was used to access the right internal jugular vein. A permanent sonographic image was stored in the medical record. A 0.0 3 5-in. wire was advanced centrally into the IVC under fluoroscopic guidance. The needle was removed over the wire and the tract was dilated. Then a 7 Singaporean, 16 cm triple-lumen central venous catheter was advanced over the wire to full depth. The wire was removed, and the catheter tip was positioned at the superior cavoatrial junction. Each lumen showed adequate bidirectional flow and was flushed with sterile saline. The catheter was secured to the skin with monofilament nylon suture and a sterile dressing was applied. The patient tolerated the procedure well without immediate complication. FINDINGS: Patent right internal jugular vein. IMPRESSION: Successful placement of a 7 Singaporean 16 cm triple-lumen central venous catheter by a right internal jugular approach under sonographic and fluoroscopic guidance. Signed by: Dr. Jayme Esparza M.D. on 10/01/2018 7:10 AM
[2018-10-01] MEDS: MIDODRINE 2.5 MG TAB PO SCH ×3 (08:00→17:00)
[2018-10-01] MEDS: AMIODARONE HCL 200 MG TAB PO SCH (08:59)
[2018-10-01] MEDS: FAMOTIDINE 20 MG TAB PO SCH (08:59)
[2018-10-01] MEDS: POLYETHYLENE GLYCOL 3350 17 GM PACK PO SCH ×2 (09:00→17:00)
[2018-10-01] MEDS ORDERED: MEROPENEM 1GM 100 ML IV SCH (11:00)
[2018-10-01] MEDS: MEROPENEM 1GM 100 ML IV SCH ×2 (11:00→23:30)
[2018-10-01] MEDS: VANCOMYCIN 1GM/NS 250 ML 250 ML IV SCH (11:45)
--- NOTE | 2018-10-01 13:45 | NUR ---
Spoke to Dr. Nunez regarding plan of care. States he saw pt two weeks ago and her wound has gotten considerably larger. He plans to take pt to OR tomorrow for debridement and he will then apply wound vac. MD wants to monitor wound for a few days. Anticipate dc to LTAC by end of the week.
[2018-10-01] MEDS: DIGOXIN 0.125 MG TAB PO SCH (14:00)
--- NOTE | 2018-10-01 14:00 | NUR ---
DRESSING CHANGED ON THE LOWER SACRUM UPPER BACK AND SCAPULA
[2018-10-01] MEDS: SOLIFENACIN SUCCINATE 5 MG TAB PO SCH (17:00)
[2018-10-01] MEDS: ASPIRIN 81 MG CHEW TAB PO SCH (17:00)
[2018-10-01] MEDS: ALPRAZOLAM 0.5 MG TAB PO SCH (17:00)
[2018-10-01] MEDS: HYDROXYZINE HCL 25 MG TAB PO SCH (17:00)
[2018-10-01] MEDS: DOCUSATE SODIUM 100 MG CAP PO SCH (17:00)
--- NOTE | 2018-10-01 18:57 | NUR ---
PT RESTING ON BED BED SIDE REPORT GIVEN TO ONCOMING NURSE
[2018-10-01] MEDS: DIVALPROEX SODIUM 250 MG TAB...DR PO SCH (20:43)
[2018-10-01] MEDS: TRAMADOL HCL 50 MG TAB PO PRN (20:43)
[2018-10-01] MEDS: MELATONIN 5 MG TABLET PO SCH (20:43)
--- NOTE | 2018-10-01 23:24 | Consultation ---
DATE OF CONSULTATION: 10/01/2018 HISTORY OF PRESENT ILLNESS: This patient is a 73-year-old female, who is known to me from the [facility]. She has an extensive past medical history and was being seen in the Wound Care Clinic for a stage IV sacral pressure ulcer. At the time that she was seen approximately 2 to 3 weeks ago, the ulcer was clean and plans were for initial flap closure of the decubitus ulcer. The patient apparently came to the ER several days ago and was admitted and workup was found to have marked worsening of the decubitus ulcer. Consultation is now requested by Plastic Surgery for evaluation and optimal management. PAST MEDICAL AND PAST SURGICAL HISTORY: Notable for aphasia and hemiparesis. The patient's past surgical history includes a double mastectomy. PERTINENT PHYSICAL EXAMINATION: Shows a stage IV sacral pressure ulcer with marked devitalization and infected tissue all the way down to the sacrum. There is purulent exudate present. There is a significant area of surrounding erythema that most likely represents the early stages of stage I pressure changes involving the entire sacrum and upper half of the buttocks. LABORATORY DATA: The patient's white blood cell count on the most recent admission is 11.2, hemoglobin 9.4, hematocrit 30.5, and platelets 359. IMPRESSION: Stage IV sacral decubitus ulcer with infection. PLAN: The patient will be taken to the OR tomorrow for extensive excisional sharp debridement of devitalized tissues. The risks, benefits, and alternatives of the treatment were discussed with the and the family and they are in agreement with this plan. Thank you for allowing me to participate in the care of your patient. MD JOSHUA Fan/BAILEYL /[id number]
[2018-10-02] VITALS (9 sets, daily range): BP systolic 108–152; BP diastolic 51–59
--- NOTE | 2018-10-02 01:53 | NUR ---
patient laying on left side with wedges to off set her sacral area. TV on at this time, patient sleeping with no signs of distress
[2018-10-02 05:43] LABS: BASOPHILS # (AUTO) 0.1 (0.0-0.1); BASOPHILS % 0.6 % (0.0-1.0); EOSINOPHILS # (AUTO) 0.5 (0.0-0.4); EOSINOPHILS % 4.2 % (0.0-6.0); HEMOGLOBIN 9.5 g/dL (12.0-16.0); LYMPHOCYTES # (AUTO) 2.2 (1.0-3.2); LYMPHOCYTES % 17.7 % (18.0-39.1); MEAN CORPUSCULAR HEMOGLOBIN 26.7 pg (28-32); MEAN CORPUSCULAR HGB CONC 30.6 g/dL (31-35); MEAN CORPUSCULAR VOLUME 87.1 fL (81-99); MONOCYTES % 8.1 % (4.4-11.3); NEUTROPHILS # (AUTO) 8.6 (2.1-6.9); NEUTROPHILS % 68.7 % (38.7-80.0); PLATELET COUNT 420 x10e3/uL (140-360); RED BLOOD COUNT 3.56 x10e6/uL (3.6-5.1); RED CELL DISTRIBUTION WIDTH 14.3 % (11.7-14.4)
[2018-10-02 05:51] LABS: ANION GAP 13.1 mmol/L (8-16); BLOOD UREA NITROGEN 21 mg/dL (7-26); BUN/CREATININE RATIO 30 (6-25); CALCIUM 8.7 mg/dL (8.4-10.2); CARBON DIOXIDE 24 mmol/L (22-29); CHLORIDE 102 mmol/L (98-107); CREATININE, SERUM 0.71 mg/dL (0.57-1.11); EST GLOMERULAR FILTRATION RATE > 60 ML/MIN (60-); GLUCOSE 98 mg/dL (74-118); POTASSIUM 4.1 mmol/L (3.5-5.1); SODIUM 135 mmol/L (136-145)
--- NOTE | 2018-10-02 07:00 | NUR ---
RCD PT AT BED PT IS ALERT AND ORIENTED PT RESTING ON BED NO SIGNS OF ANY DISTRESS NOTED IV PATENT PT NPO FOR PROCEDURE FAMILY AT BED SIDE BED LOW AND LOCKED CALL LIGHT IN REACH
--- NOTE | 2018-10-02 07:14 | NUR ---
walking rounds completed with Vidya RN, family in room pending pre op to pick the patient up.
--- NOTE | 2018-10-02 08:20 | NUR ---
PT WENT TO PROCEDURE IN SAFE CONDITION
[2018-10-02] MEDS ORDERED: BACITRACIN 50,000 UNIT VIAL ONE (08:50)
--- NOTE | 2018-10-02 10:15 | NUR ---
FELISA TROUGH 14 NOTIFIED TO MERY ELIAS WHEN HE CAME TO SEE THE PT HE SAID OK TO CONTINUE THE SAME
--- NOTE | 2018-10-02 10:20 | NUR ---
PT BACK AFTER PROCEDURE PT IS ALERT AND ORIENTED VITALS CHECKED SURGICAL SITE LOOKS OOZING APPLIED ABDOMINAL PAD OVER THERE AND TURN THE PT ON RT SIDE FAMILY AT BED SIDE BED LOW AND LOCKED CALL LIGHT IN REACH
[2018-10-02] MEDS: POLYETHYLENE GLYCOL 3350 17 GM PACK PO SCH ×2 (10:30→17:00)
[2018-10-02] MEDS: MIDODRINE 2.5 MG TAB PO SCH ×3 (10:30→17:00)
[2018-10-02] MEDS: FAMOTIDINE 20 MG TAB PO SCH (10:30)
[2018-10-02] MEDS: AMIODARONE HCL 200 MG TAB PO SCH (10:30)
[2018-10-02] MEDS ORDERED: ACETAMINOPHEN 325 MG TAB PO PRN (10:45)
--- NOTE | 2018-10-02 10:55 | NUR ---
Received call from ABIEL Dasilva stating pt's daughter would like to speak to CM. CM to pt's bedside. Pt's daughter requesting list of half-way facilities in the area. She states she knows the plan is to discharge to [facility] from the hospital but wants a list so she can start looking at facilities to plan for post discharge from [facility]. CM provided pt's daughter with Senior Resource Guide and pointed out the list of SNFs in the area.
[2018-10-02] MEDS: MEROPENEM 1GM 100 ML IV SCH ×2 (11:00→22:46)
[2018-10-02] MEDS: VANCOMYCIN 1GM/NS 250 ML 250 ML IV SCH (11:45)
[2018-10-02] MEDS: TRAMADOL HCL 50 MG TAB PO PRN ×2 (13:30→20:52)
[2018-10-02] MEDS: DIGOXIN 0.125 MG TAB PO SCH (14:00)
--- NOTE | 2018-10-02 16:00 | NUR ---
WOND VACC APPLIED AND DRESSING CHANGED
--- NOTE | 2018-10-02 16:40 | NUR ---
WOUND CARE NOTE OF TREATMENT: THIS PATIENT WELL KNOWN TO [facility] IS STATUS POST SURGICAL DEBRIDEMENT OF STAGE 4 PRESSURE ULCER TO SACRUM AND LEFT BUTTOCKS THIS MORNING BY DR. TORRES. REASSESSEMENT OF ULCER PERFORMED AND WOUND VAC APPLIED ORDERED. THE PATIENT'S STAGE 4 SACRAL ULCER MEASURES 6.2X7X1.4CM, 80% RED GRANULAR TISSUE TO WOUND BED AND 20% CAUTERIZED TISSUE NOTED TO WOUND BED. PATIENT'S STAGE 4 PRESSURE ULCER TO THE RIGHT BUTTOCKS MEASURES 4.1F3F7JP, 90% RED GRANULAR TISSUE AND 10% FIBRIN NOTED TO WOUND BED. NO ODOR PRESENT TO EITHER PRESSURE ULCER. WOUND VAC APPLIED AND INTACT, AT 140mmHg CONTINUOUS SUCTION AND TO BE CHANGED THREE TIMES A WEEK AND PRN. PATIENT TOLERATED PROCEDURE WELL. DAUGHTER AND RADIOGRAPHER CARDIAC CATHETERIZATION AT BEDSIDE DURING WOUND VAC APPLICATION. PATIENT IS ON A ROTATING PRESSURE RELIEF MATTRESS AND WEDGES ARE IN PLACE TO ASSIST WITH OFF LOADING PRESSURE TO THE BUTTOCKS. DAUGHTER REMINDED THAT PATIENT IS STRICT TURN EVERY 2 HOURS AND PRN. FAMILY VERBALIZED UNDERSTANDING. PREVIOUS WOUND CARE CONSULTATION TREATMENT ORDERS IN PLACE FOR DRESSING CHANGES. WOUND VAC ORDER IN PLACE WELL. Addendum: 10/02/18 at 1658 by Celine Servin RN Amended: Links added.
[2018-10-02] MEDS: DOCUSATE SODIUM 100 MG CAP PO SCH (17:00)
[2018-10-02] MEDS: ASPIRIN 81 MG CHEW TAB PO SCH (17:00)
[2018-10-02] MEDS: HYDROXYZINE HCL 25 MG TAB PO SCH (17:00)
[2018-10-02] MEDS: LACTOBACILLUS ACIDOPHILUS CAPSULE PO SCH (17:00)
[2018-10-02] MEDS: ALPRAZOLAM 0.5 MG TAB PO SCH (17:00)
[2018-10-02] MEDS: SOLIFENACIN SUCCINATE 5 MG TAB PO SCH (17:00)
[2018-10-02] MEDS ORDERED: SEVOFLURANE INHAL SOLN 250 ML PEN BTL ONE (18:04)
[2018-10-02] MEDS ORDERED: ONDANSETRON HCL INJ 2MG/ML 2ML 2 MG/ML VIAL ONE (18:04)
[2018-10-02] MEDS ORDERED: LIDOCAINE HCL 2% LOCAL INJ 5 ML SDV VIAL INJ ONE (18:04)
[2018-10-02] MEDS ORDERED: PROPOFOL IV EMULSION 10 MG/ML 20 ML VIAL ONE (18:04)
--- NOTE | 2018-10-02 18:26 | NUR ---
pt went to procedure in safe condition
[2018-10-02] MEDS ORDERED: FENTANYL CITRATE/PF 100MCG/2 ML INJ ONE (18:45)
--- NOTE | 2018-10-02 18:52 | NUR ---
PT RESTING ON BED BED SIDE REPORT GIVEN TO ONCOMING NURSE
--- NOTE | 2018-10-02 20:39 | Operative Report ---
DATE OF PROCEDURE: 10/02/2018 SURGEON: Parvez Nunez MD PREOPERATIVE DIAGNOSIS: Stage IV sacral pressure ulcer. POSTOPERATIVE DIAGNOSIS: Stage IV sacral pressure ulcer. PROCEDURE: Excisional debridement of stage IV sacral pressure ulcer. ANESTHESIA: General. HISTORY: The patient is a 73-year-old female, who has a necrotic infected stage IV sacral ulcer. The risks, benefits, and alternatives of treatment were discussed with the and the daughter, and they are prepared to allow the patient to undergo the procedure as outlined. PROCEDURE IN DETAIL: The patient was marked preoperatively in the holding area. She was brought to the operating theater and after the induction of adequate general anesthesia, she is prepped and draped in a right lateral decubitus position. A time-out was performed. The procedure was begun by marking out the border between the devitalized and vitalized tissue. At this point, an incision was made at the bladder with a scalpel through the skin and subcutaneous tissues. Bleeding was controlled using electrocautery. Using electrocautery, the incision was deepened through the subcutaneous tissue down to the level of the sacral fascia and all of the devitalized tissues was removed on block. At this point, several areas of remaining devitalized tissue was removed sharply with a scissor. Once again, the wound bed was made hemostatic using the electrocautery. At this point, the wound was pulse lavaged with 3 L of antibiotic containing solution and hemostasis then made absolute using the electrocautery. Saline soaked Kerlix was then placed into the wound. An ABD is placed over the Kerlix and dressing held in place with paper tape. The patient was made supine. She was transferred back to her hospital bed and then brought to recovery room in satisfactory condition. She was transferred back to our hospital room where a VAC device would be placed. The estimated blood loss of the procedure was approximately 50 mL. Parvez Nunez MD ER/MODL /[id number]
[2018-10-02] MEDS: DIVALPROEX SODIUM 250 MG TAB...DR PO SCH (20:52)
[2018-10-02] MEDS: MELATONIN 5 MG TABLET PO SCH (20:52)
[2018-10-03] VITALS (7 sets, daily range): BP systolic 93–131; BP diastolic 50–59
--- NOTE | 2018-10-03 00:40 | NUR ---
Patient in bed resting, wound vac on, dim lights per patient request. Patient bed low and locked position. call light with in reach will monitor patient per MD orders
--- NOTE | 2018-10-03 07:22 | NUR ---
report and walking rounds with Jose BEEBE
[2018-10-03] MEDS: MIDODRINE 2.5 MG TAB PO SCH ×3 (10:39→16:46)
[2018-10-03] MEDS: LACTOBACILLUS ACIDOPHILUS CAPSULE PO SCH (10:39)
[2018-10-03] MEDS: AMIODARONE HCL 200 MG TAB PO SCH (10:39)
[2018-10-03] MEDS: FAMOTIDINE 20 MG TAB PO SCH (10:39)
[2018-10-03] MEDS: POLYETHYLENE GLYCOL 3350 17 GM PACK PO SCH ×2 (10:39→16:46)
[2018-10-03] MEDS: MEROPENEM 1GM 100 ML IV SCH (10:40)
[2018-10-03] MEDS ORDERED: SODIUM CHLORIDE 0.9% 250ML 250 ML ONE (11:00)
--- NOTE | 2018-10-03 12:05 | NUR ---
Received MOT from Amanda Mo with [facility] [id number] [place] [address] Ricci Yeager to attend Admin: Zach Euceda, FRAME RUNNER MOT completed and placed with pt's packet at nurse's station. ABIEL Garcia was informed of bed assignment.
[2018-10-03] MEDS: VANCOMYCIN 1GM/NS 250 ML 250 ML IV SCH (12:49)
--- NOTE | 2018-10-03 12:57 | NUR ---
YAIMA SALGADO ASSISTANT HEALTH EDUCATOR FOR DR. TORRES STATED PATIWNT OKAY TO TRANSFER TO LTAC FACILITY FROM HER STANDPOINT.
--- NOTE | 2018-10-03 13:55 | NUR ---
CALLED DR. BUENO'S OFFICE SERVICE REGARDING PATIENT'S POSSIBLE DISCHARGE, SPOKE TO SHAKIRA, SHAKIRA STATED THAT SHE WOULD NOTIFY THE PHYSICIAN.
--- NOTE | 2018-10-03 13:58 | Consultation ---
DATE OF CONSULTATION: 10/03/2018 Urology Consultation CHIEF COMPLAINT AND REASON FOR CONSULTATION: SP tube, urinary tract infections, neurogenic bladder. HISTORY OF PRESENT ILLNESS: Garett Loredo is my patient, is admitted to the hospital with decubiti, underwent flap procedures by plastic surgeon, Dr. Nunez. Urologically, the patient has a neurogenic bladder, severe vaginal atrophy requiring SP tube changes. Denied hematuria. Denied nausea or vomiting. PAST MEDICAL HISTORY: As above with atrial fibrillation, hemiplegia, stroke, COPD, neurogenic bladder, SP tube, multiple urinary tract infections, urinary incontinence, dementia, hypertension. MEDICATIONS: Please see MAR. ALLERGIES: TO PENICILLIN, CEPHALOSPORINS, LEVAQUIN, MEROPENEM, AND NITROFURANTOIN. SOCIAL HISTORY: Denies smoking or drinking. FAMILY HISTORY: Denied urologic stones or malignancies. REVIEW OF SYSTEMS: Noncontributory other than problems mentioned above for 12 organ systems. PHYSICAL EXAMINATION: GENERAL: An elderly female, in no acute distress. VITAL SIGNS: Currently, she is afebrile with stable vital signs. EYES: Sclerae anicteric. NECK: Supple. BACK: Without costovertebral angle tenderness bilaterally. ABDOMEN: Soft. It is nontender. It is nondistended. There is no palpable mass. No palpable hernias. No palpable adenopathy. : Normal female external genitalia. EXTREMITIES: No edema. NEURO: Moves all four extremities. PSYCH: Alert and appropriate. SKIN: Intact, normal color. PERTINENT LABORATORY DATA: CT scan in March 2018 revealing a 2.2 cm left adrenal nodule, bilateral renal cysts. Hemoglobin 9.5, hematocrit 31, platelet count 420,000, white cell count 12,520. Sodium 135, potassium 4.1, chloride 102, bicarb 24, BUN 21, creatinine 0.71, glucose 98. Urinalysis; 6-10 reds, greater than 50 whites. IMPRESSION: 1. Urinary tract infection. 2. Microscopic hematuria. 3. Suprapubic tube. 4. Neurogenic bladder. 5. Urinary retention. 6. Vaginal atrophy. 7. Renal cyst. 8. Left adrenal adenoma. 9. Anemia. PLAN: The patient has been begun on broad-spectrum antibiotics, agree with this. The patient needs monthly SP tubes and surveillance cystoscopy annually for the renal cyst and adrenal adenoma with surveillance as well. Thank you for allowing me to participate in the care of your patient. We will be happy to follow along with you. MD YAQUELIN Al/IGGY /[id number]
[2018-10-03] MEDS: DIGOXIN 0.125 MG TAB PO SCH (14:36)
[2018-10-03] MEDS: TRAMADOL HCL 50 MG TAB PO PRN (14:37)
--- NOTE | 2018-10-03 15:30 | NUR ---
Spoke to pt's at bedside regarding his concern with wound care and pt transferring to [facility]. Concerned since [facility] wound care team has already left for the day and that wound vac would be taken off prior to her transferring. CM reassured him that pt would transfer with a dressing on her wound and [facility] wound care team would be available tomorrow to assess wound and replace wound vac. He is concerned that pt is discharging too soon after surgery. Informed him that floor RN must get clearance to discharge from surgeon as well as attending MD prior to discharging pt. states that if MDs have cleared to discharge then she can discharge. Inquired about how long discharge would take and when she would be transfer. CM asked ABIEL Garcia to give update to family. Amanda, liaison with [facility] has also been in contact with family regarding wound care.
--- NOTE | 2018-10-03 15:44 | NUR ---
CM SPOKE TO PATIENT AT NURSING STATION AND PATIENT DAUGHTER OVER THE PHONE REGARDING PATIENT DISCHARGE PLAN. CM EXPLAINED THE SERVICES PROVIDED AT A SHORT TERM ACUTE CARE FACILITY AND SERVICES PROVIDED AT THE [facility]. PATIENT ALSO EDUCATED ON THE PROCESS OF A SAFE TRANSFER. PATIENT AND PATIENT DAUGHTER CONCERNED REGARDING WOUND ON PATIENT. FAMILY EDUCATED ON WOUND CARE BEING DONE HERE AT [facility] WOUND CARE TEAM THAT WILL TAKE OVER AT [facility]. PATIENT FAMILY EDUCATED ON FINANCIAL RESPONSIBILITY OF PATIENT AND PATIENT FAMILY IF DISCHARGE ORDER IS WRITTEN AND THEY CHOOSE TO STAY AN EXTRA NIGHT AT [facility]. PATIENT FAMILY ALSO INFORMED OF EQUIPMENT (SPECIALTY BED) THAT WILL BE IN PATIENT ROOM ON ARRIVAL. ASHLEY MY, BEDSIDE RN, AND [place] LIAISON NOTIFIED.
[2018-10-03] MEDS: HYDROXYZINE HCL 25 MG TAB PO SCH (16:45)
[2018-10-03] MEDS: ASPIRIN 81 MG CHEW TAB PO SCH (16:45)
[2018-10-03] MEDS: DOCUSATE SODIUM 100 MG CAP PO SCH (16:45)
[2018-10-03] MEDS: SOLIFENACIN SUCCINATE 5 MG TAB PO SCH (16:46)
[2018-10-03] MEDS: ALPRAZOLAM 0.5 MG TAB PO SCH (16:46)
--- NOTE | 2018-10-03 17:38 | NUR ---
SPOKE TO TARA BEEBE AT [facility] [phone], GAVE REPORT FOR TRANSFER TO TARA BEEBE.
[2018-10-03] MEDS: MELATONIN 5 MG TABLET PO SCH (21:50)
[2018-10-03] MEDS: DIVALPROEX SODIUM 250 MG TAB...DR PO SCH (21:50)
--- NOTE | 2018-10-03 21:53 | NUR ---
ems here to transfer patient to [place]. vital sign stable at this time. Notified charge nurse and power house control room operator
--- NOTE | 2018-12-05 06:38 | Discharge Summary ---
DISCHARGE DIAGNOSIS: 1. 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 2. Status post sacral wound debridement. 3. Urinary tract infection. 4. Late effects of cerebrovascular accident. 5. Chronic atrial fibrillation. HOSPITAL COURSE: Ms. Loredo is an unfortunate 73-year-old lady, patient of Dr. Andres New. She has extensive past medical history and more recently admissions to [facility] for worsening sacral decubiti. Apparently being seen at the [facility] for [facility] and sent to the emergency department for evaluation. She was found to have a significant amount of pain and an increased white cell count. Cultures were sent from the patient's decubiti and this was returned positive for a mixed growth of Proteus and Enterococcus faecalis. She was also having urinary tract infection with Pseudomonas. She was treated with IV antibiotics, which were managed by Infectious Disease trial consultant, Dr. Guerrero, using a combination of vancomycin and Azactam and a consultation was placed to Dr. Nunez, Plastic Surgery, who later on scheduled debridement of the patient's decubiti ulcers. Once she was stable, a decision was switched to continue care at a local LTAC unit. She was discharged then in stable condition. MD COLIN De Paz/MODL /[id number]
== END 2018-10-03 22:09 | DRG 580 ==
LOC: ER 13:10 → ERHOLD 15:17 → MED/SURG2 15:50
PROVIDERS: ADMIT Internal Medicine; ATTEND Internal Medicine
PROC: 02HV33Z Insertion of Infusion Device into Superior Vena Cava, Percutaneous Approach (ICD-10-PCS; 2018-09-30)
PROC: 0KBN0ZZ Excision of Right Hip Muscle, Open Approach (ICD-10-PCS; 2018-10-02)
PROC: 0KBP0ZZ Excision of Left Hip Muscle, Open Approach (ICD-10-PCS; principal; 2018-10-02 08:51)
DX: L89.154 Pressure ulcer of sacral region, stage 4 (principal); L03.317 Cellulitis of buttock; I69.354 Hemiplegia and hemiparesis following cerebral infarction affecting left non-dominant side; I48.91 Unspecified atrial fibrillation; Z79.01 Long term (current) use of anticoagulants; F03.90 Unspecified dementia, unspecified severity, without behavioral disturbance, psychotic disturbance, mood disturbance, and anxiety; R32 Unspecified urinary incontinence; J44.9 Chronic obstructive pulmonary disease, unspecified; N30.91 Cystitis, unspecified with hematuria; B95.4 Other streptococcus as the cause of diseases classified elsewhere; L89.301 Pressure ulcer of unspecified buttock, stage 1; Z96.659 Presence of unspecified artificial knee joint; Z74.01 Bed confinement status; Z88.0 Allergy status to penicillin; N31.9 Neuromuscular dysfunction of bladder, unspecified; N95.2 Postmenopausal atrophic vaginitis; N28.1 Cyst of kidney, acquired
CPT/HCPCS: 36415; 36556; 71045; 74470; 76937; 77001; 80048; 80053; 80162; 80202; 81001; 82550; 82553; 82948; 83605; 83735; 84484; 85025; 85610; 85730; 87040; 87071; 87086; 87186; 87205; 99284; C1751; J2001; J2270; J2405; J3010; J3370; J3410; J7050

== ENCOUNTER 2019-02-26 09:28 | Inpatient (IN) | payer MEDICARE ==
[~2019-02-26] VITALS: Ht 165.1 cm; Wt 72.6 kg
[2019-02-26] MEDS ORDERED: LEVOFLOXACIN 500MG/D5W 100ML 100 ML IV STA (09:52)
[2019-02-26] MEDS ORDERED: IPRATROPIUM BROMIDE 0.02% 2.5 ML NEB NEB STA (09:52)
[2019-02-26] MEDS ORDERED: SODIUM CHLORIDE 0.9% 1000ML 1,000 ML IV STA ×3 (09:52→10:43)
[2019-02-26] MEDS ORDERED: ALBUTEROL SULF 0.083% NEB SOLN 3 ML NEB NEB STA (09:52)
[2019-02-26] MEDS ORDERED: FAMOTIDINE 20 MG/2 ML VIAL IV STA (09:52)
--- NOTE | 2019-02-26 09:55 | NUR ---
RESP PLACED PT ON BIPAP
[2019-02-26 09:59] LABS: BASOPHILS # (AUTO) 0.1 (0.0-0.1); BASOPHILS % 0.2 % (0.0-1.0); EOSINOPHILS % 0.1 % (0.0-6.0); HEMATOCRIT 37.3 % (34.2-44.1); HEMOGLOBIN 10.2 g/dL (12.0-16.0); LYMPHOCYTES # (AUTO) 2.2 (1.0-3.2); LYMPHOCYTES % 6.8 % (18.0-39.1); MEAN CORPUSCULAR HEMOGLOBIN 23.4 pg (28-32); MEAN CORPUSCULAR HGB CONC 27.3 g/dL (31-35); MEAN CORPUSCULAR VOLUME 85.7 fL (81-99); MONOCYTES # (AUTO) 0.7 (0.2-0.8); MONOCYTES % 2.2 % (4.4-11.3); NEUTROPHILS # (AUTO) 28.8 (2.1-6.9); NEUTROPHILS % 89.5 % (38.7-80.0); PLATELET COUNT 395 x10e3/uL (140-360); RED BLOOD COUNT 4.35 x10e6/uL (3.6-5.1)
[2019-02-26] MEDS ORDERED: CLINDAMYCIN PHOS 900MG/ 50ML 50 ML IV ONE (10:00)
[2019-02-26] MEDS ORDERED: SODIUM CHLORIDE 0.9% 1000ML 1,000 ML IV SCH (10:12)
--- NOTE | 2019-02-26 10:13 | Diagnostic Imaging Report ---
Chest, portable AP view History: Dyspnea, possible aspiration Comparison: Chest radiograph dated 09/27/2018 IMPRESSION: The heart is within normal limits of size. The patient is status post sternotomy. There is a patchy opacity in the right upper lobe for which pneumonitis should be clinically excluded. There is no sizable pleural effusion or pneumothorax. Bibasilar atelectasis is present. Signed by: Aditya Lindsay MD on 02/26/2019 10:09 AM
--- NOTE | 2019-02-26 10:14 | NUR ---
ARCOS BAG CHANGED FOR UA SAMPLE
[2019-02-26] MEDS ORDERED: AZTREONAM 1 GM/NS 50 ML 50 ML IV ONE (10:15)
[2019-02-26] MEDS ORDERED: AZTREONAM 1 GM/NS 50 ML 50 ML IV SCH ×3 (10:15→21:00)
[2019-02-26 10:18] LABS: ALBUMIN 2.1 g/dL (3.5-5.0); ALBUMIN/GLOBULIN RATIO 0.3 (0.8-2.0); ANION GAP 28.6 mmol/L (8-16); CALCIUM 9.2 mg/dL (8.4-10.2); CREATININE, SERUM 2.11 mg/dL (0.57-1.11); POTASSIUM 4.6 mmol/L (3.5-5.1)
[2019-02-26 10:24] LABS: CREATINE KINASE MB 0.5 ng/mL (0-5.0)
[2019-02-26 10:30] LABS: INR 1.46; PROTHROMBIN TIME 18.3 seconds (11.9-14.5)
[2019-02-26 10:31] LABS: PARTIAL THROMBOPLASTIN TIME 28.4 seconds (23.8-35.5)
[2019-02-26 10:38] LABS: B-TYPE NATRIURETIC PEPTIDE2 466.5 pg/mL (0-100)
[2019-02-26] MEDS ORDERED: DEXTROSE 50% SYRINGE 50 ML IV PRN (10:45)
[2019-02-26] MEDS ORDERED: INSULIN REGULAR, HUMAN 100 UNIT/1 ML 3ML VIAL IV ONE (10:45)
[2019-02-26] MEDS: ALBUTEROL SULF 0.083% NEB SOLN 3 ML NEB NEB SCH ×2 (10:54→14:00)
[2019-02-26] MEDS ORDERED: INSULIN REGULAR, HUMAN 100 UNIT/1 ML 3ML VIAL SQ SCH (11:30)
[2019-02-26] MEDS ORDERED: VANCOMYCIN 1GM/NS 250 ML 250 ML IV SCH (11:45)
[2019-02-26 12:00] VITALS: BP 100/42
[2019-02-26] MEDS ORDERED: CLINDAMYCIN 600MG / 50ML 50 ML IV SCH ×2 (12:00→16:00)
--- NOTE | 2019-02-26 12:10 | NUR ---
Received patient from ER to room 199, placed on bi-pap, she appears obtunded non-verbal and does not follow commands. Respiratory in room drawing ABG's, placed on brush painter.
--- NOTE | 2019-02-26 12:35 | NUR ---
Called Dr. Ibarra made aware patient is room, and non-verbal, and placed on the Bi-pap, setting 12/6 with 100% saturation. I made him aware patient is DNAR. Received orders to saline lock patient once Vancomycin antibiotic is completed.
[2019-02-26 12:39] LABS: HYPOCHROMASIA SLIGHT; RBC MORPHOLOGY COMMENT ABNORMAL
[2019-02-26] MEDS ORDERED: IPRATROPIUM BROMIDE 0.02% 2.5 ML NEB NEB SCH (13:00)
[2019-02-26 13:32] VITALS: BP 99/51
--- NOTE | 2019-02-26 13:40 | NUR ---
Visit made by the Spiritual Care Department Pastoral Visitor, Demetra Banks. PV provided pastoral presence, prayer, hospitality, and supportive listening. Pastoral Visitor informed pt/family of the scope of [employer] and availability. MISSY REYES Manager Intermediate Spiritual Care Department O: [phone] Pager: [phone] ([phone] number calling from)
--- NOTE | 2019-02-26 13:53 | NUR ---
FAMILY STATES PT HAS AN ADVANCED DIRECTIVE AND OOH DNR ON FILE, I HAVE CONTACTED MEDICAL RECORDS TO SEE ABOUT OBTAINING OR PUTTING COPY ON CURRENT CHART.
[2019-02-26 14:00] VITALS: BP 99/51
[2019-02-26] MEDS ORDERED: HYDROMORPHONE 1MG/1ML INJ IV PRN (15:00)
--- NOTE | 2019-02-26 15:00 | NUR ---
Patient's and family informed attending they wanted patient to be comfortable, and requested pain medication, because patient appeared in pain. Family declined wound care consult.
[2019-02-26] MEDS ORDERED: DIGOXIN 0.125 MG TAB PO SCH (15:15)
[2019-02-26] MEDS ORDERED: ACETAMINOPHEN 325 MG TAB PO PRN (15:15)
[2019-02-26] MEDS: SODIUM CHLORIDE 0.45% 1,000 ML IV SCH ×2 (15:30→16:32)
--- NOTE | 2019-02-26 15:51 | NUR ---
SPOKE WITH DR TONY, RECOMMENDS PALLIATIVE CARE, CONTACTED EZIO MARCOS ACCOUNTING MANAGER FOR PALLIATIVE PROGRAM, SHE STATES SHE WILL INITIATE THE 404 FOR AND SEE PT IN MORNING.
--- NOTE | 2019-02-26 16:10 | Pre Op History & Physical ---
PRIMARY CARE PHYSICIAN: Bucky Campbell MD HISTORY OF PRESENT ILLNESS: The patient is a 74-year-old woman. She had a prior cerebrovascular accident and has hemiplegia and hemiparesis. She also has atrial fibrillation. She has suffered with chronic decubitus ulcers requiring multiple hospitalizations. She was hospitalized at [facility] over this summer and required a surgical debridement as well as intravenous antibiotics. She has subsequently been recovering at the correction facility. She came to the hospital today because of worsening confusion, labored breathing, and ill appearance. Upon arrival, she was found to have a white blood cell count in the 30s. She was found to have pyuria as well as an infiltrate on her chest x-ray. PAST SURGICAL HISTORY: 1. Debridement of decubitus ulcer. 2. Double mastectomy. 3. Knee replacement. 4. Back surgery. 5. Hysterectomy. PAST MEDICAL HISTORY: 1. Prior CVA leading to hemiplegia and hemiparesis. 2. Hypertension. 3. Atrial fibrillation. 4. Recurrent urinary tract infections. ALLERGIES: THE PATIENT IS ALLERGIC TO ROCEPHIN WELL MERREM AND PENICILLIN. FAMILY HISTORY: Noncontributory. SOCIAL HISTORY: The patient stays at a correction facility. She has mild to moderate alcohol usage in the past. She has not been a smoker recently, but was a smoker in the past. REVIEW OF SYSTEMS: She has worsening congestion and possible fevers. She has had some tachypnea. She is not complaining of chest pain. She does have pain in her lower back near her decubitus ulcer. She does not complain of facial swelling. She does not have anterior chest pain. There is shortness of breath. She has no abdominal pain. There is no nausea or vomiting. She has no leg swelling. PHYSICAL EXAMINATION: VITAL SIGNS: The patient is afebrile. The blood pressure is 87/65 and the saturation is 100% on BiPAP. The respiratory rate is 33 and the pulse is 77. HEENT: Shows no facial swelling or erythema. CARDIAC: Reveals irregular rate. LUNGS: Auscultation of lungs shows decreased breath sounds at the bases. There is no wheezing. ABDOMEN: Soft, nontender. There is no rebound or guarding. EXTREMITIES: Show no leg edema or calf tenderness. There is no cyanosis or clubbing. NEUROLOGIC: Shows hemiparesis and confusion. LABORATORY DATA: White blood cell count is 32, and hemoglobin is 10.2. The platelet count is 395. The sodium is 152, and the bicarbonate is 12. Creatinine is 2.1 and the glucose is 490. The lactic acid is 14.2. Chest x-ray shows a patchy right upper lobe infiltrate. Urinalysis shows pyuria. IMPRESSION: 1. Urinary tract infection with severe sepsis, present on admission. 2. Aspiration pneumonia. 3. Decubitus ulcer that is nonhealing. 4. Prior cerebrovascular accident. 5. Acute kidney injury. 6. Metabolic encephalopathy. PLAN: 1. The patient has been chatman-cultured and received intravenous fluids at 30 mL/kg. 2. The patient has received antibiotics. 3. The patient has a living will in place and does not want any heroic measures. The patient does not want intubation, pressors, or CPR. 4. Continue BiPAP. 5. Wound care. 6. Hospice consultation. MD ASHLEY Leblanc/IGGY /[id number]
--- NOTE | 2019-02-26 16:40 | NUR ---
Patient's obtunded non responsive patient is DNAR, family refused IV fluids, antibiotic and insulin coverage.
--- NOTE | 2019-02-26 17:15 | NUR ---
Patient called ER MD to come and pronounce time of .
--- NOTE | 2019-02-26 17:27 | NUR ---
Dr. Obrien in to pronounce
--- NOTE | 2019-02-26 19:00 | NUR ---
[employer] called spoke agent Casie, released by the [employer]. received orders to release body to [facility].
--- NOTE | 2019-02-26 19:35 | NUR ---
Oncoming nurse provided post mortem care
--- NOTE | 2019-02-26 19:46 | NUR ---
Called [facility] spoke with Nakia Osorio received a , case not accepted for organ transplant due to septic shock.
[2019-02-26] MEDS ORDERED: DIVALPROEX SODIUM 250 MG PO SCH (21:00)
[2019-02-26] MEDS ORDERED: MELATONIN 3 MG TAB PO SCH (21:00)
[2019-02-26] MEDS ORDERED: FAMOTIDINE 20 MG/2 ML VIAL IV SCH (21:00)
[2019-02-27] MEDS ORDERED: VANCOMYCIN 1GM/NS 250 ML 250 ML IV SCH (06:00)
[2019-02-27] MEDS ORDERED: AMIODARONE HCL 200 MG TAB PO SCH (09:00)
[2019-02-27] MEDS ORDERED: FAMOTIDINE 20 MG TAB PO SCH (09:00)
[2019-02-27] MEDS ORDERED: ATORVASTATIN 20 MG TAB PO SCH (09:00)
== END 2019-02-26 20:55 | disposition expired | DRG 698 ==
LOC: ER 09:28 → ERHOLD 10:12 → IMCU 12:21
PROVIDERS: ADMIT Internal Medicine Critical Care Medicine; ATTEND Internal Medicine Critical Care Medicine
PROC: 5A09357 Assistance with Respiratory Ventilation, Less than 24 Consecutive Hours, Continuous Positive Airway Pressure (ICD-10-PCS; principal; 2019-02-26)
DX: T83.518A Infection and inflammatory reaction due to other urinary catheter, initial encounter (principal); L89.154 Pressure ulcer of sacral region, stage 4; A41.9 Sepsis, unspecified organism; G93.41 Metabolic encephalopathy; J69.0 Pneumonitis due to inhalation of food and vomit; R65.20 Severe sepsis without septic shock; J96.01 Acute respiratory failure with hypoxia; N39.0 Urinary tract infection, site not specified; N17.9 Acute kidney failure, unspecified; I69.354 Hemiplegia and hemiparesis following cerebral infarction affecting left non-dominant side; I10 Essential (primary) hypertension; I48.91 Unspecified atrial fibrillation; Z66 Do not resuscitate; I95.9 Hypotension, unspecified; R09.02 Hypoxemia; Z86.718 Personal history of other venous thrombosis and embolism; Z87.891 Personal history of nicotine dependence; Z88.1 Allergy status to other antibiotic agents; Z88.0 Allergy status to penicillin; Z79.82 Long term (current) use of aspirin; R82.81 Pyuria
CPT/HCPCS: 31720; 36415; 36600; 51700; 71045; 80053; 82550; 82553; 82948; 83605; 83735; 83880; 84484; 85025; 85610; 85730; 87040; 87071; 87205; 93005; 94640; 94660; 99284; J1170; J1817; J3370; J7030